=== PATIENT | female | born 1950 ===

== ENCOUNTER 2022-09-22 10:49 | Emergency (ER) | payer OTHER ==
[2022-09-22 11:21] VITALS: TEMP 98.6; BMI 28.5
[2022-09-22 12:34] LABS: BASO % 0.6 % (0-2.0); EOS % 2.7 % (0-4.5); HEMATOCRIT 33.6 % (32.4-45.2); HEMOGLOBIN 10.8 GM/dL (10.7-15.3); MCH 26.6 pg (25.7-33.7); MCHC 32.1 g/dl (32.0-36.0); MEAN CELL VOLUME 82.8 fl (80-96); MEAN PLT VOLUME 8.6 fl (7.5-11.1); MONO % 11.5 % (3.8-10.2); NEUT % 58.2 % (42.8-82.8); PLATELET COUNT 215 10^3/uL (134-434); RBC 4.06 M/mm3 (3.60-5.2); RDW 14.4 % (11.6-15.6); WHITE BLOOD COUNT 6.2 K/mm3 (4.0-10.0)
[2022-09-22 12:36] LABS: VENOUS BASE EXCESS 12.2 mmol/L (-2-2); VENOUS O2 SATURATION 99.2 % (70-80); VENOUS PCO2 43.1 mmHg (38-52); VENOUS PH 7.54 (7.310-7.410)
[2022-09-22 12:57] LABS: ALBUMIN 3.1 g/dl (3.4-5.0); BLOOD UREA NITROGEN 10.5 mg/dL (7-18); CALCIUM 10.1 mg/dL (8.5-10.1); MAGNESIUM 2.1 mg/dL (1.8-2.4)
[2022-09-22 13:00] LABS: CREATININE 0.4 mg/dL (0.55-1.3)
[2022-09-22 13:02] LABS: BILIRUBIN,TOTAL 0.3 mg/dL (0.2-1); TOT PROT 6.7 g/dl (6.4-8.2)
[2022-09-22 13:52] LABS: EPI CELLS 3 /uL (0-25.1); HYALINE CASTS 1 /uL (0-3.1); PH,URINE 7.5 (5.0-8.0); URINE APPEARANCE CLOUDY; URINE BACTERIA >9,000 /uL (0-1359); URINE BILIRUBIN NEGATIVE (NEGATIVE); URINE COLOR YELLOW; URINE GLUCOSE (UA) NEGATIVE (NEGATIVE); URINE KETONE TRACE (NEGATIVE); URINE LEUK ESTERASE 3+ (NEGATIVE); URINE NITRITE NEGATIVE (NEGATIVE); URINE PROTEIN TRACE (NEGATIVE); URINE RBC 23 /uL (0-23.9); URINE UROBILINOGEN 0.2 mg/dL (0.2-1.0); URINE WBC 1402 /uL (0-25.8)
[2022-09-22] MEDS ORDERED: CEFTRIAXONE 1,000 MG in DEXTROSE 5%-WATER - 50 ML IVPB ONE (14:30)
[2022-09-22] MEDS ORDERED: HYDROmorphone HCl 2 MG/ML VIAL IVPUSH ONE ×2 (14:31→19:04)
[2022-09-22] MEDS ORDERED: HYDROmorphone HCl 2 MG/ML VIAL ONE ×2 (14:33→19:29)
[2022-09-22] MEDS ORDERED: CEFTRIAXONE 1 GM/50 ML BAG ONE (15:22)
[2022-09-22 19:38] VITALS: BP 161/85; PULSE 120; RESP 22
== END 2022-09-22 19:45 | disposition home or self-care (01) ==
LOC: JER 10:49
PROC: 3E03329 Introduction of Other Anti-infective into Peripheral Vein, Percutaneous Approach (ICD-10-PCS; principal; 2022-09-22)
PROC: 3E033NZ Introduction of Analgesics, Hypnotics, Sedatives into Peripheral Vein, Percutaneous Approach (ICD-10-PCS; 2022-09-22)
PROC: 3E033GC Introduction of Other Therapeutic Substance into Peripheral Vein, Percutaneous Approach (ICD-10-PCS; 2022-09-22)
DX: N30.00 Acute cystitis without hematuria (principal); R51.9 Headache, unspecified; I10 Essential (primary) hypertension; Z20.822 Contact with and (suspected) exposure to COVID-19
CPT/HCPCS: 36415; 70450-TC; 71045-TC-FY; 74176-TC; 80053; 80164; 81003; 82803; 82962; 83605; 83690; 83735; 84484; 85025; 86850; 86900; 86901; 87086; 87186; 93005; 93010; 99285-25; C9803-CS; U0003; U0005

== ENCOUNTER 2022-10-01 10:57 | Inpatient (IN) | payer OTHER ==
[2022-10-01] MEDS ORDERED: ALBUTEROL SO4 0.083% IH SOL 2.5 MG/3 ML VIAL.NEB. NEB ONE ×6 (11:05→15:47)
[2022-10-01] MEDS ORDERED: methylPREDNISolone NA SUCC 125 MG/2 ML VIAL ONE ×2 (11:14→11:18)
[2022-10-01] MEDS ORDERED: methylPREDNISolone NA SUCC 125 MG/2 ML VIAL IVPUSH ONE (11:14)
[2022-10-01] MEDS ORDERED: MAGNESIUM SULF 50% (8.12 MEQ/2 ML-1 GM VIAL) IVPB ONE ×2 (11:14→15:09)
[2022-10-01] MEDS ORDERED: MAGNESIUM SULFATE IN WATER 2 GM/50 ML IVPB IVPB ONE ×3 (11:15→15:15)
[2022-10-01] MEDS ORDERED: LACTATED RINGERS SOLUTION 1000 ML INFUS.BAG IV ONE (11:19)
[2022-10-01 11:32] LABS: VENOUS BASE EXCESS 6.7 mmol/L (-2-2); VENOUS O2 SATURATION 57.9 % (70-80); VENOUS PH 7.221 (7.310-7.410)
[2022-10-01 11:33] LABS: HEMATOCRIT 33.5 % (32.4-45.2); HEMOGLOBIN 11.2 GM/dL (10.7-15.3); LYMPH % 11.3 % (8-40); MCH 27.4 pg (25.7-33.7); MCHC 33.6 g/dl (32.0-36.0); MEAN CELL VOLUME 81.5 fl (80-96); MEAN PLT VOLUME 8.8 fl (7.5-11.1); MONO % 7.5 % (3.8-10.2); NEUT % 80.4 % (42.8-82.8); PLATELET COUNT 353 10^3/uL (134-434); RBC 4.11 M/mm3 (3.60-5.2); WHITE BLOOD COUNT 8.4 K/mm3 (4.0-10.0)
[2022-10-01 11:34] LABS: BASO % 0.4 % (0-2.0); EOS % 0.4 % (0-4.5)
[2022-10-01 11:38] LABS: VENOUS PCO2 93.3 mmHg (38-52)
[2022-10-01 11:40] LABS: INR 1.12 (0.83-1.09)
[2022-10-01 11:43] LABS: ACTIVATED PTT 40.9 SECONDS (25.2-36.5)
[2022-10-01 11:54] LABS: ALBUMIN 3.3 g/dl (3.4-5.0); BLOOD UREA NITROGEN 9.4 mg/dL (7-18); CALCIUM 10.2 mg/dL (8.5-10.1)
[2022-10-01 11:58] LABS: CREATININE 0.3 mg/dL (0.55-1.3)
[2022-10-01 11:59] LABS: BILIRUBIN,TOTAL 0.3 mg/dL (0.2-1)
[2022-10-01 12:00] LABS: TOT PROT 7.7 g/dl (6.4-8.2)
[2022-10-01] MEDS ORDERED: ALBUTEROL SO4 0.083% IH SOL 2.5 MG/3 ML VIAL.NEB. NEB STA (12:16)
[2022-10-01] MEDS ORDERED: ALBUTEROL SO4 2.5/IPRATROPIUM 0.5 INH SOL 3 ML VIAL.NEB. NEB ONE ×2 (12:59→16:56)
[2022-10-01] MEDS ORDERED: HEPARIN NA (PORCINE) 5,000 UNITS/ML 1ML VIAL IVPUSH ONE (13:00)
[2022-10-01] MEDS ORDERED: HEPARIN NA (PORCINE) 5,000 UNITS/ML 1ML VIAL IVPUSH PRN ×2 (13:00)
[2022-10-01] MEDS ORDERED: HEPARIN - 25,000 UNIT in SODIUM CHLORIDE 495 ML IV SCH (13:30)
[2022-10-01 14:09] LABS: LACTIC ACID 3.9 mmol/L (0.4-2.0)
[2022-10-01] MEDS ORDERED: HEPARIN INFUSION - 25,000 UNITS/500 ML INFUS.BAG IVPB ONE (14:26)
[2022-10-01] MEDS ORDERED: HEPARIN NA (PORCINE) 5,000 UNITS/ML 1ML VIAL ONE (14:26)
[2022-10-01] MEDS ORDERED: MEROPENEM 1 GM in DEXTROSE 5%-WATER 100 ML IVPB ONE (15:04)
[2022-10-01] MEDS ORDERED: VANCOMYCIN/WATER 1,250 MG/250 ML BAG (RESTRICTED TO ID ONLY) IVPB ONE (15:05)
[2022-10-01] MEDS ORDERED: TERBUTALINE SULFATE 1 MG/1 ML VIAL SQ ONE (15:09)
[2022-10-01 15:28] LABS: VENOUS BASE EXCESS 4.8 mmol/L (-2-2); VENOUS O2 SATURATION 96.4 % (70-80); VENOUS PH 7.235 (7.310-7.410)
[2022-10-01] MEDS ORDERED: KETAMINE HCL 200 MG/20 ML VIAL IVPUSH ONE (15:29)
[2022-10-01] MEDS ORDERED: KETAMINE HCL 500 MG/10 ML VIAL ONE (15:32)
[2022-10-01] MEDS ORDERED: ROCURONIUM BROMIDE 50 MG/5 ML SYRINGE ONE (15:32)
[2022-10-01] MEDS ORDERED: DEXMEDETOMIDINE HCL 200 MCG/2 ML IVPB ONE ×2 (15:47→16:36)
[2022-10-01 15:59] LABS: VENOUS PCO2 83.8 mmHg (38-52)
[2022-10-01] MEDS ORDERED: DEXMEDETOMIDINE PREMIX 400 MCG/100 ML BAG IVPB SCH (16:15)
[2022-10-01] MEDS ORDERED: GLYCOPYRROLATE 1 MG/5 ML VIAL IM ONE (17:30)
[2022-10-01 18:39] LABS: VENOUS BASE EXCESS 3.8 mmol/L (-2-2); VENOUS O2 SATURATION 32.4 % (70-80); VENOUS PH 7.203 (7.310-7.410)
[2022-10-01 19:06] LABS: CALCIUM 10.1 mg/dL (8.5-10.1)
[2022-10-01 19:08] LABS: BLOOD UREA NITROGEN 11.5 mg/dL (7-18)
[2022-10-01 19:11] LABS: CREATININE 0.4 mg/dL (0.55-1.3)
[2022-10-01 20:02] LABS: EPI CELLS 17 /uL (0-25.1); HYALINE CASTS 3 /uL (0-3.1); URINE APPEARANCE Clear; URINE BACTERIA 3 /uL (0-1359); URINE BILIRUBIN Negative (NEGATIVE); URINE COLOR Yellow; URINE GLUCOSE (UA) Negative (NEGATIVE); URINE KETONE 15 mg/dl (NEGATIVE); URINE LEUK ESTERASE Negative (NEGATIVE); URINE NITRITE Negative (NEGATIVE); URINE PROTEIN 30 (NEGATIVE); URINE UROBILINOGEN 0.2 mg/dL (0.2-1.0)
[2022-10-01 20:13] LABS: URINE RBC 98.6 /uL (0-23.9); URINE WBC 85.8 /uL (0-25.8)
[2022-10-01] MEDS: methylPREDNISolone NA SUCC 40 MG/1 ML VIAL IVPUSH SCH (20:14)
[2022-10-01] MEDS ORDERED: LIDOCAINE HCL 1%, 10 MG/ML (50 mL VIAL) SQ ONE (21:19)
[2022-10-01] MEDS: CHLORHEXIDINE GLUCONATE 4% CLEANSER FOR DECOLONIZATION TP SCH (21:35)
[2022-10-01] MEDS ORDERED: PROPOFOL 200 MG/20 ML VIAL IVPUSH ONE (21:49)
[2022-10-01 22:29] LABS: ARTERIAL BLD GAS O2 SATURATION 97.7 % (95-98); ARTERIAL BLOOD GAS BASE EXCESS 9.3 mmol/L (-2-2); ARTERIAL BLOOD GAS PO2 92.7 mmHg (80-100)
[2022-10-01] MEDS: MUPIROCIN 2% TOPICAL OINTMENT FOR DECOLONIZATION NS SCH (22:29)
[2022-10-01] MEDS: PROPOFOL 1,000,000 MCG/100 ML VIAL IVPB SCH (22:29)
[2022-10-02] MEDS ORDERED: NITROGLYCERIN 50 MG/10 ML VIAL IVPB SCH (02:00)
[2022-10-02 04:44] LABS: BASO % 0.1 % (0-2.0); HEMATOCRIT 29.2 % (32.4-45.2); HEMOGLOBIN 9.9 GM/dL (10.7-15.3); LYMPH % 11.2 % (8-40); MCH 27.3 pg (25.7-33.7); MCHC 33.9 g/dl (32.0-36.0); MEAN CELL VOLUME 80.5 fl (80-96); MEAN PLT VOLUME 7.8 fl (7.5-11.1); MONO % 13.8 % (3.8-10.2); NEUT % 74.9 % (42.8-82.8); PLATELET COUNT 288 10^3/uL (134-434); RBC 3.63 M/mm3 (3.60-5.2); RDW 13.7 % (11.6-15.6); WHITE BLOOD COUNT 8.4 K/mm3 (4.0-10.0)
[2022-10-02] MEDS: methylPREDNISolone NA SUCC 40 MG/1 ML VIAL IVPUSH SCH ×3 (04:54→17:13)
[2022-10-02 05:07] LABS: BLOOD UREA NITROGEN 12.4 mg/dL (7-18); MAGNESIUM 2.1 mg/dL (1.8-2.4)
[2022-10-02 05:10] LABS: CREATININE 0.3 mg/dL (0.55-1.3); PHOSPHOROUS 2.5 mg/dL (2.5-4.9)
[2022-10-02] MEDS ORDERED: CLOPIDOGREL BISULFATE 75 MG TABLET (FP) PO STA (05:13)
[2022-10-02 05:14] LABS: N-TERMINAL BNP 4053.2 pg/ml (5-125)
[2022-10-02] MEDS: CEFTRIAXONE 1 GM in DEXTROSE 5%-WATER - 50 ML IVPB SCH (09:03)
[2022-10-02] MEDS: MUPIROCIN 2% TOPICAL OINTMENT FOR DECOLONIZATION NS SCH ×2 (09:05→21:35)
[2022-10-02] MEDS: ASPIRIN 81 MG CHEWABLE TABLETS PO SCH (09:05)
[2022-10-02] MEDS: AZITHROMYCIN IVPB 500 MG/250 ML BAG IVPB SCH (09:05)
[2022-10-02] MEDS ORDERED: CLOPIDOGREL BISULFATE 75 MG TABLET (FP) PO SCH (10:00)
[2022-10-02] MEDS ORDERED: PANTOPRAZOLE SODIUM 40 MG VIAL IVPUSH SCH (10:00)
[2022-10-02] MEDS ORDERED: hydrALAZINE HCL 20 MG/ML VIAL IVPUSH PRN (10:08)
[2022-10-02] MEDS ORDERED: ALBUTEROL SO4 0.083% IH SOL 2.5 MG/3 ML VIAL.NEB. NEB PRN (10:22)
[2022-10-02] MEDS ORDERED: ALBUTEROL SO4 2.5/IPRATROPIUM 0.5 INH SOL 3 ML VIAL.NEB. NEB PRN (10:22)
[2022-10-02] MEDS: CARVEDILOL 6.25 MG TABLET (FP) PO SCH ×2 (10:37→21:35)
[2022-10-02] MEDS: LOSARTAN POTASSIUM 50 MG TABLET PO SCH (10:37)
[2022-10-02] MEDS: INSULIN SLIDING SCALE (NOVOLOG) 1 VIAL SQ SCH ×3 (10:44→21:36)
[2022-10-02] MEDS ORDERED: ALBUTEROL SO4 0.042% IH SOL 1.25 MG/3 ML VIAL.NEB NEB PRN (10:58)
[2022-10-02] MEDS ORDERED: FUROSEMIDE 40 MG/4 ML INJECTABLE VIAL IVPUSH ONE (11:15)
[2022-10-02] MEDS: ALBUTEROL SO4 2.5/IPRATROPIUM 0.5 INH SOL 3 ML VIAL.NEB. NEB SCH ×3 (11:55→22:07)
[2022-10-02 17:19] LABS: HEMATOCRIT 30.9 % (32.4-45.2); HEMOGLOBIN 10.2 GM/dL (10.7-15.3); MCH 26.6 pg (25.7-33.7); MEAN CELL VOLUME 80.8 fl (80-96); MEAN PLT VOLUME 8.1 fl (7.5-11.1); PLATELET COUNT 313 10^3/uL (134-434); RBC 3.83 M/mm3 (3.60-5.2); WHITE BLOOD COUNT 11.2 K/mm3 (4.0-10.0)
[2022-10-02] MEDS: DEXMEDETOMIDINE PREMIX 400 MCG/100 ML BAG IVPB SCH (20:00)
[2022-10-02] MEDS: PROPOFOL 1,000,000 MCG/100 ML VIAL IVPB SCH (21:35)
[2022-10-02] MEDS: CHLORHEXIDINE GLUCONATE 4% CLEANSER FOR DECOLONIZATION TP SCH (21:36)
[2022-10-02] MEDS: ATORVASTATIN CA 40 MG TABLET (FP) PO SCH (21:36)
[2022-10-02] MEDS: PANTOPRAZOLE SODIUM 40 MG VIAL IVPUSH SCH (21:36)
[2022-10-03] MEDS: DEXMEDETOMIDINE PREMIX 400 MCG/100 ML BAG IVPB SCH ×3 (01:05→22:49)
[2022-10-03] MEDS: methylPREDNISolone NA SUCC 40 MG/1 ML VIAL IVPUSH SCH ×3 (01:27→18:21)
[2022-10-03] MEDS: INSULIN SLIDING SCALE (NOVOLOG) 1 VIAL SQ SCH ×4 (04:16→22:34)
[2022-10-03] MEDS: PROPOFOL 1,000,000 MCG/100 ML VIAL IVPB SCH ×2 (05:21→22:33)
[2022-10-03 06:09] LABS: ARTERIAL BLD GAS O2 SATURATION 98.8 % (95-98); ARTERIAL BLOOD GAS BASE EXCESS 10.6 mmol/L (-2-2); ARTERIAL BLOOD GAS PO2 136.3 mmHg (80-100); ARTERIAL BLOOD GAS pH 7.455 (7.350-7.450)
[2022-10-03 06:14] LABS: VENT MODE A/C; VENT RATE 14
[2022-10-03] MEDS: ALBUTEROL SO4 2.5/IPRATROPIUM 0.5 INH SOL 3 ML VIAL.NEB. NEB SCH ×4 (08:05→20:40)
[2022-10-03 08:42] LABS: HEMATOCRIT 29.2 % (32.4-45.2); HEMOGLOBIN 9.8 GM/dL (10.7-15.3); MCH 27.2 pg (25.7-33.7); MCHC 33.6 g/dl (32.0-36.0); MEAN CELL VOLUME 81.1 fl (80-96); MEAN PLT VOLUME 8.8 fl (7.5-11.1); PLATELET COUNT 329 10^3/uL (134-434); WHITE BLOOD COUNT 11.1 K/mm3 (4.0-10.0)
[2022-10-03 08:52] LABS: CALCIUM 9.6 mg/dL (8.5-10.1)
[2022-10-03 08:53] LABS: BLOOD UREA NITROGEN 19.7 mg/dL (7-18); MAGNESIUM 2.1 mg/dL (1.8-2.4)
[2022-10-03 08:56] LABS: CREATININE 0.3 mg/dL (0.55-1.3); PHOSPHOROUS 4.1 mg/dL (2.5-4.9)
[2022-10-03] MEDS: PANTOPRAZOLE SODIUM 40 MG VIAL IVPUSH SCH ×2 (09:00→22:34)
[2022-10-03] MEDS: CLOPIDOGREL BISULFATE 75 MG TABLET (FP) PO SCH (09:01)
[2022-10-03] MEDS: CEFTRIAXONE 1 GM in DEXTROSE 5%-WATER - 50 ML IVPB SCH (09:01)
[2022-10-03] MEDS: ENOXAPARIN NA (PORCINE) 40 MG/0.4 ML DISP.SYRIN SQ SCH (09:01)
[2022-10-03] MEDS: ASPIRIN 81 MG CHEWABLE TABLETS PO SCH (09:01)
[2022-10-03] MEDS: MUPIROCIN 2% TOPICAL OINTMENT FOR DECOLONIZATION NS SCH ×2 (09:01→22:32)
[2022-10-03] MEDS: LOSARTAN POTASSIUM 50 MG TABLET PO SCH (09:02)
[2022-10-03] MEDS: CARVEDILOL 6.25 MG TABLET (FP) PO SCH ×2 (09:02→22:35)
[2022-10-03] MEDS: AZITHROMYCIN IVPB 500 MG/250 ML BAG IVPB SCH (09:02)
[2022-10-03] MEDS: CEFEPIME 1 GM in DEXTROSE 5%-WATER 100 ML IVPB SCH (18:21)
[2022-10-03] MEDS: ATORVASTATIN CA 40 MG TABLET (FP) PO SCH (22:33)
[2022-10-03] MEDS: CHLORHEXIDINE GLUCONATE 4% CLEANSER FOR DECOLONIZATION TP SCH (22:33)
[2022-10-04] MEDS: methylPREDNISolone NA SUCC 40 MG/1 ML VIAL IVPUSH SCH ×3 (01:23→17:05)
[2022-10-04] MEDS: CEFEPIME 1 GM in DEXTROSE 5%-WATER 100 ML IVPB SCH ×3 (01:23→17:05)
[2022-10-04] MEDS: DEXMEDETOMIDINE PREMIX 400 MCG/100 ML BAG IVPB SCH (02:49)
[2022-10-04] MEDS: INSULIN SLIDING SCALE (NOVOLOG) 1 VIAL SQ SCH ×4 (04:12→21:37)
[2022-10-04] MEDS: PROPOFOL 1,000,000 MCG/100 ML VIAL IVPB SCH (05:55)
[2022-10-04] MEDS: ALBUTEROL SO4 2.5/IPRATROPIUM 0.5 INH SOL 3 ML VIAL.NEB. NEB SCH ×4 (07:15→20:42)
[2022-10-04 07:45] LABS: HEMATOCRIT 26.9 % (32.4-45.2); HEMOGLOBIN 8.8 GM/dL (10.7-15.3); MCH 26.6 pg (25.7-33.7); MCHC 32.7 g/dl (32.0-36.0); MEAN CELL VOLUME 81.5 fl (80-96); MEAN PLT VOLUME 8.4 fl (7.5-11.1); PLATELET COUNT 299 10^3/uL (134-434); RDW 14.2 % (11.6-15.6); WHITE BLOOD COUNT 11.3 K/mm3 (4.0-10.0)
[2022-10-04] MEDS: ASPIRIN 81 MG CHEWABLE TABLETS PO SCH (09:13)
[2022-10-04] MEDS: PANTOPRAZOLE SODIUM 40 MG VIAL IVPUSH SCH ×2 (09:13→21:34)
[2022-10-04] MEDS: LOSARTAN POTASSIUM 50 MG TABLET PO SCH (09:14)
[2022-10-04] MEDS: CLOPIDOGREL BISULFATE 75 MG TABLET (FP) PO SCH (09:14)
[2022-10-04] MEDS: ENOXAPARIN NA (PORCINE) 40 MG/0.4 ML DISP.SYRIN SQ SCH (09:18)
[2022-10-04] MEDS: AZITHROMYCIN IVPB 500 MG/250 ML BAG IVPB SCH (09:18)
[2022-10-04] MEDS: MUPIROCIN 2% TOPICAL OINTMENT FOR DECOLONIZATION NS SCH ×2 (09:18→21:38)
[2022-10-04] MEDS: CARVEDILOL 6.25 MG TABLET (FP) PO SCH ×2 (09:18→21:34)
[2022-10-04 10:19] LABS: BLOOD UREA NITROGEN 24.1 mg/dL (7-18); CALCIUM 8.7 mg/dL (8.5-10.1); MAGNESIUM 2.2 mg/dL (1.8-2.4)
[2022-10-04 10:23] LABS: CREATININE 0.3 mg/dL (0.55-1.3); PHOSPHOROUS 2.7 mg/dL (2.5-4.9)
[2022-10-04 10:25] LABS: BILIRUBIN,TOTAL 0.2 mg/dL (0.2-1)
[2022-10-04 10:29] LABS: ALBUMIN 2.6 g/dl (3.4-5.0)
[2022-10-04] MEDS: ATORVASTATIN CA 40 MG TABLET (FP) PO SCH (21:33)
[2022-10-04] MEDS: CHLORHEXIDINE GLUCONATE 4% CLEANSER FOR DECOLONIZATION TP SCH (21:34)
[2022-10-05] MEDS: methylPREDNISolone NA SUCC 40 MG/1 ML VIAL IVPUSH SCH ×3 (01:10→17:11)
[2022-10-05] MEDS: CEFEPIME 1 GM in DEXTROSE 5%-WATER 100 ML IVPB SCH ×3 (01:10→17:11)
[2022-10-05] MEDS: hydrALAZINE HCL 20 MG/ML VIAL IVPUSH PRN ×2 (01:38→22:45)
[2022-10-05] MEDS: PROPOFOL 1,000,000 MCG/100 ML VIAL IVPB SCH (02:39)
[2022-10-05] MEDS: DEXMEDETOMIDINE PREMIX 400 MCG/100 ML BAG IVPB SCH (02:39)
[2022-10-05] MEDS: INSULIN SLIDING SCALE (NOVOLOG) 1 VIAL SQ SCH ×4 (04:42→21:42)
[2022-10-05 07:12] LABS: HEMATOCRIT 25.9 % (32.4-45.2); HEMOGLOBIN 8.5 GM/dL (10.7-15.3); MCH 26.7 pg (25.7-33.7); MCHC 32.7 g/dl (32.0-36.0); MEAN CELL VOLUME 81.6 fl (80-96); MEAN PLT VOLUME 8.2 fl (7.5-11.1); PLATELET COUNT 302 10^3/uL (134-434); RBC 3.18 M/mm3 (3.60-5.2); WHITE BLOOD COUNT 13.5 K/mm3 (4.0-10.0)
[2022-10-05 07:39] LABS: CALCIUM 8.9 mg/dL (8.5-10.1)
[2022-10-05 07:40] LABS: ALBUMIN 2.5 g/dl (3.4-5.0); BLOOD UREA NITROGEN 20.2 mg/dL (7-18); MAGNESIUM 2.1 mg/dL (1.8-2.4)
[2022-10-05 07:43] LABS: CREATININE 0.3 mg/dL (0.55-1.3); PHOSPHOROUS 2.2 mg/dL (2.5-4.9)
[2022-10-05 07:44] LABS: BILIRUBIN,TOTAL 0.2 mg/dL (0.2-1); TOT PROT 5.9 g/dl (6.4-8.2)
[2022-10-05] MEDS: ALBUTEROL SO4 2.5/IPRATROPIUM 0.5 INH SOL 3 ML VIAL.NEB. NEB SCH ×4 (08:02→20:37)
[2022-10-05] MEDS: CLOPIDOGREL BISULFATE 75 MG TABLET (FP) PO SCH (09:01)
[2022-10-05] MEDS: ENOXAPARIN NA (PORCINE) 40 MG/0.4 ML DISP.SYRIN SQ SCH (09:01)
[2022-10-05] MEDS: ASPIRIN 81 MG CHEWABLE TABLETS PO SCH (09:01)
[2022-10-05] MEDS: MUPIROCIN 2% TOPICAL OINTMENT FOR DECOLONIZATION NS SCH ×2 (09:02→21:19)
[2022-10-05] MEDS: LOSARTAN POTASSIUM 50 MG TABLET PO SCH (09:02)
[2022-10-05] MEDS: CARVEDILOL 6.25 MG TABLET (FP) PO SCH ×2 (09:02→21:19)
[2022-10-05] MEDS: PANTOPRAZOLE SODIUM 40 MG VIAL IVPUSH SCH (09:03)
[2022-10-05] MEDS ORDERED: GLYCOPYRROLATE 1 MG/5 ML VIAL IM ONE (12:30)
[2022-10-05] MEDS: BUDESONIDE/FORMETEROL FUMARATE 160/4.5 mcg INHALER IH SCH ×2 (12:42→21:20)
[2022-10-05] MEDS ORDERED: SODIUM PHOSPHATE - 15 MM in DEXTROSE 5%-WATER - 250 ML IVPB ONE (17:31)
[2022-10-05] MEDS ORDERED: ACETAMINOPHEN 1000 MG/100 ML BAG IVPB ONE (18:34)
[2022-10-05] MEDS ORDERED: HYDROmorphone HCl 2 MG/ML VIAL IVPUSH ONE (18:35)
[2022-10-05] MEDS: ACETYLCYSTEINE 20% 200MG/ML 4 ML VIAL *FOR ORAL / INH USE ONLY NEB SCH (20:38)
[2022-10-05] MEDS ORDERED: DIVALPROEX SODIUM 125 MG SPRINKLE CAPS PO SCH (21:15)
[2022-10-05] MEDS: ATORVASTATIN CA 40 MG TABLET (FP) PO SCH (21:19)
[2022-10-05] MEDS: GABAPENTIN 100 MG CAPSULE PO SCH (21:19)
[2022-10-05] MEDS: CHLORHEXIDINE GLUCONATE 4% CLEANSER FOR DECOLONIZATION TP SCH (21:20)
[2022-10-05] MEDS ORDERED: OLANZapine 2.5 MG TABLET PO SCH (22:00)
[2022-10-05] MEDS ORDERED: DIVALPROEX SODIUM 500 MG TABLET E.C. PO SCH (22:00)
[2022-10-06] MEDS: CEFEPIME 1 GM in DEXTROSE 5%-WATER 100 ML IVPB SCH ×2 (01:15→10:04)
[2022-10-06] MEDS: methylPREDNISolone NA SUCC 40 MG/1 ML VIAL IVPUSH SCH ×2 (01:15→10:05)
[2022-10-06] MEDS: INSULIN SLIDING SCALE (NOVOLOG) 1 VIAL SQ SCH ×4 (05:48→23:03)
[2022-10-06] MEDS: GABAPENTIN 100 MG CAPSULE PO SCH (06:14)
[2022-10-06] MEDS: hydrALAZINE HCL 20 MG/ML VIAL IVPUSH PRN (06:39)
[2022-10-06] MEDS ORDERED: METOPROLOL TARTRATE 5 MG/5 ML VIAL IVPUSH ONE (07:01)
[2022-10-06 08:01] LABS: HEMATOCRIT 29.3 % (32.4-45.2); HEMOGLOBIN 9.5 GM/dL (10.7-15.3); MCH 26.4 pg (25.7-33.7); MCHC 32.4 g/dl (32.0-36.0); MEAN CELL VOLUME 81.7 fl (80-96); MEAN PLT VOLUME 8.3 fl (7.5-11.1); PLATELET COUNT 437 10^3/uL (134-434); RBC 3.59 M/mm3 (3.60-5.2); RDW 14.2 % (11.6-15.6); WHITE BLOOD COUNT 16.6 K/mm3 (4.0-10.0)
[2022-10-06] MEDS: ALBUTEROL SO4 2.5/IPRATROPIUM 0.5 INH SOL 3 ML VIAL.NEB. NEB SCH ×3 (08:22→19:41)
[2022-10-06] MEDS: ACETYLCYSTEINE 20% 200MG/ML 4 ML VIAL *FOR ORAL / INH USE ONLY NEB SCH ×4 (08:23→19:41)
[2022-10-06 08:42] LABS: ALBUMIN 2.8 g/dl (3.4-5.0); CALCIUM 9.6 mg/dL (8.5-10.1)
[2022-10-06 08:43] LABS: BLOOD UREA NITROGEN 22.6 mg/dL (7-18)
[2022-10-06 08:46] LABS: CREATININE 0.3 mg/dL (0.55-1.3); PHOSPHOROUS 3.1 mg/dL (2.5-4.9)
[2022-10-06 08:47] LABS: BILIRUBIN,TOTAL 0.3 mg/dL (0.2-1); TOT PROT 6.4 g/dl (6.4-8.2)
[2022-10-06] MEDS ORDERED: CARVEDILOL 12.5 MG TABLET (FP) PO SCH (09:27)
[2022-10-06] MEDS ORDERED: VALPROATE SODIUM 500 MG/5 ML VIAL IVPB SCH (09:30)
[2022-10-06] MEDS ORDERED: ASPIRIN 81 MG CHEWABLE TABLETS PO SCH (10:00)
[2022-10-06] MEDS ORDERED: DIVALPROEX SODIUM 500 MG TABLET E.C. PO SCH (10:00)
[2022-10-06] MEDS ORDERED: PANTOPRAZOLE SODIUM 40 MG VIAL IVPUSH SCH (10:00)
[2022-10-06] MEDS: ENOXAPARIN NA (PORCINE) 40 MG/0.4 ML DISP.SYRIN SQ SCH (10:05)
[2022-10-06] MEDS: LOSARTAN POTASSIUM 50 MG TABLET PO SCH (10:13)
[2022-10-06] MEDS: GABAPENTIN 300 MG CAPSULE PO SCH ×2 (10:13→16:58)
[2022-10-06] MEDS: CLOPIDOGREL BISULFATE 75 MG TABLET (FP) PO SCH (10:13)
[2022-10-06] MEDS: MUPIROCIN 2% TOPICAL OINTMENT FOR DECOLONIZATION NS SCH (10:15)
[2022-10-06] MEDS: BUDESONIDE/FORMETEROL FUMARATE 160/4.5 mcg INHALER IH SCH ×2 (10:15→22:57)
[2022-10-06] MEDS ORDERED: HYDROmorphone HCL 2 MG TABLET PO SCH (11:15)
[2022-10-06] MEDS ORDERED: FUROSEMIDE 40 MG/4 ML INJECTABLE VIAL IVPUSH ONE (11:17)
[2022-10-06] MEDS ORDERED: SCOPOLAMINE HYDROBROMIDE 1 PATCH PATCH.TD72 TD SCH (11:30)
[2022-10-06] MEDS: VALPROATE SODIUM INJECTION 250 MG in SODIUM CHLORIDE 100 ML IVPB SCH ×3 (12:19→21:15)
[2022-10-06] MEDS ORDERED: hydrALAZINE HCL 20 MG/ML VIAL IVPUSH PRN (19:03)
[2022-10-06] MEDS: HYDROmorphone HCL 2 MG TABLET PO SCH (21:45)
[2022-10-06] MEDS: CARVEDILOL 12.5 MG TABLET (FP) PO SCH (21:46)
[2022-10-06] MEDS: OLANZapine 2.5 MG TABLET PO SCH (21:46)
[2022-10-06] MEDS: ATORVASTATIN CA 40 MG TABLET (FP) PO SCH (21:46)
[2022-10-07] MEDS: GABAPENTIN 300 MG CAPSULE PO SCH ×3 (00:05→15:25)
[2022-10-07] MEDS: CEFEPIME 1 GM in DEXTROSE 5%-WATER 100 ML IVPB SCH ×4 (01:36→17:09)
[2022-10-07] MEDS: VALPROATE SODIUM INJECTION 250 MG in SODIUM CHLORIDE 100 ML IVPB SCH ×4 (02:37→20:56)
[2022-10-07] MEDS: INSULIN SLIDING SCALE (NOVOLOG) 1 VIAL SQ SCH ×4 (05:01→21:52)
[2022-10-07] MEDS: ACETYLCYSTEINE 20% 200MG/ML 4 ML VIAL *FOR ORAL / INH USE ONLY NEB SCH ×5 (07:39→20:40)
[2022-10-07] MEDS: ALBUTEROL SO4 2.5/IPRATROPIUM 0.5 INH SOL 3 ML VIAL.NEB. NEB SCH (07:40)
[2022-10-07] MEDS: ALBUTEROL SO4 0.042% IH SOL 1.25 MG/3 ML VIAL.NEB NEB PRN ×3 (07:40→20:40)
[2022-10-07] MEDS: AMINO ACIDS/PROTEIN HYDROLYS 30 ML LIQUID.PKT PO SCH (08:15)
[2022-10-07] MEDS: CARVEDILOL 12.5 MG TABLET (FP) PO SCH ×2 (09:43→21:43)
[2022-10-07] MEDS: PANTOPRAZOLE SODIUM 40 MG VIAL IVPUSH SCH (09:44)
[2022-10-07] MEDS: predniSONE 20 MG TABLET (UD) PO SCH (09:44)
[2022-10-07] MEDS: ENOXAPARIN NA (PORCINE) 40 MG/0.4 ML DISP.SYRIN SQ SCH (09:44)
[2022-10-07] MEDS: BUDESONIDE/FORMETEROL FUMARATE 160/4.5 mcg INHALER IH SCH ×2 (09:44→21:45)
[2022-10-07] MEDS: ASPIRIN 81 MG CHEWABLE TABLETS PO SCH (09:45)
[2022-10-07] MEDS: HYDROmorphone HCL 2 MG TABLET PO SCH ×2 (09:45→21:44)
[2022-10-07] MEDS: FUROSEMIDE 40 MG/4 ML INJECTABLE VIAL IVPUSH SCH (09:47)
[2022-10-07] MEDS: LOSARTAN POTASSIUM 50 MG TABLET PO SCH (09:47)
[2022-10-07] MEDS: CLOPIDOGREL BISULFATE 75 MG TABLET (FP) PO SCH (09:47)
[2022-10-07] MEDS ORDERED: methylPREDNISolone NA SUCC 40 MG/1 ML VIAL IVPUSH SCH (10:00)
[2022-10-07 11:32] LABS: HEMATOCRIT 28.8 % (32.4-45.2); HEMOGLOBIN 9.3 GM/dL (10.7-15.3); MCH 26.4 pg (25.7-33.7); MCHC 32.1 g/dl (32.0-36.0); MEAN CELL VOLUME 82.2 fl (80-96); MEAN PLT VOLUME 8.5 fl (7.5-11.1); PLATELET COUNT 376 10^3/uL (134-434); RBC 3.51 M/mm3 (3.60-5.2); RDW 14.2 % (11.6-15.6); WHITE BLOOD COUNT 13.1 K/mm3 (4.0-10.0)
[2022-10-07 11:58] LABS: CALCIUM 9.8 mg/dL (8.5-10.1)
[2022-10-07 11:59] LABS: ALBUMIN 2.8 g/dl (3.4-5.0); BLOOD UREA NITROGEN 21.5 mg/dL (7-18); MAGNESIUM 1.9 mg/dL (1.8-2.4)
[2022-10-07 12:02] LABS: CREATININE 0.3 mg/dL (0.55-1.3); PHOSPHOROUS 3.8 mg/dL (2.5-4.9)
[2022-10-07 12:04] LABS: TOT PROT 6.2 g/dl (6.4-8.2)
[2022-10-07 12:13] LABS: BILIRUBIN,TOTAL 0.3 mg/dL (0.2-1)
[2022-10-07 12:52] LABS: N-TERMINAL BNP 758.8 pg/ml (5-125)
[2022-10-07] MEDS ORDERED: ALBUTEROL SO4 2.5/IPRATROPIUM 0.5 INH SOL 3 ML VIAL.NEB. NEB SCH (14:00)
[2022-10-07] MEDS: ATORVASTATIN CA 40 MG TABLET (FP) PO SCH (21:43)
[2022-10-07] MEDS: OLANZapine 2.5 MG TABLET PO SCH (21:43)
[2022-10-08] MEDS: GABAPENTIN 300 MG CAPSULE PO SCH ×3 (00:20→15:25)
[2022-10-08] MEDS: CEFEPIME 1 GM in DEXTROSE 5%-WATER 100 ML IVPB SCH ×2 (02:08→10:36)
[2022-10-08] MEDS: VALPROATE SODIUM INJECTION 250 MG in SODIUM CHLORIDE 100 ML IVPB SCH ×4 (03:30→23:25)
[2022-10-08] MEDS: INSULIN SLIDING SCALE (NOVOLOG) 1 VIAL SQ SCH ×4 (04:48→23:33)
[2022-10-08 07:30] LABS: HEMOGLOBIN 9.2 GM/dL (10.7-15.3); MCHC 32.9 g/dl (32.0-36.0); MEAN CELL VOLUME 82.1 fl (80-96); MEAN PLT VOLUME 8.4 fl (7.5-11.1); PLATELET COUNT 355 10^3/uL (134-434); RBC 3.41 M/mm3 (3.60-5.2); WHITE BLOOD COUNT 15.9 K/mm3 (4.0-10.0)
[2022-10-08] MEDS: ALBUTEROL SO4 0.042% IH SOL 1.25 MG/3 ML VIAL.NEB NEB PRN ×3 (07:41→15:05)
[2022-10-08] MEDS: ACETYLCYSTEINE 20% 200MG/ML 4 ML VIAL *FOR ORAL / INH USE ONLY NEB SCH ×4 (07:43→20:05)
[2022-10-08 07:51] LABS: CALCIUM 9.7 mg/dL (8.5-10.1)
[2022-10-08 07:52] LABS: ALBUMIN 2.8 g/dl (3.4-5.0); BLOOD UREA NITROGEN 22.7 mg/dL (7-18); MAGNESIUM 1.9 mg/dL (1.8-2.4)
[2022-10-08 07:53] LABS: BILIRUBIN,TOTAL 0.3 mg/dL (0.2-1); CREATININE 0.2 mg/dL (0.55-1.3); TOT PROT 6.1 g/dl (6.4-8.2)
[2022-10-08] MEDS: ENOXAPARIN NA (PORCINE) 40 MG/0.4 ML DISP.SYRIN SQ SCH (10:36)
[2022-10-08] MEDS: PANTOPRAZOLE SODIUM 40 MG VIAL IVPUSH SCH (10:36)
[2022-10-08] MEDS: AMINO ACIDS/PROTEIN HYDROLYS 30 ML LIQUID.PKT PO SCH (10:36)
[2022-10-08] MEDS: CLOPIDOGREL BISULFATE 75 MG TABLET (FP) PO SCH (10:37)
[2022-10-08] MEDS: ASPIRIN 81 MG CHEWABLE TABLETS PO SCH (10:37)
[2022-10-08] MEDS: CARVEDILOL 12.5 MG TABLET (FP) PO SCH ×2 (10:37→23:26)
[2022-10-08] MEDS: HYDROmorphone HCL 2 MG TABLET PO SCH ×2 (10:37→23:26)
[2022-10-08] MEDS: predniSONE 20 MG TABLET (UD) PO SCH (10:37)
[2022-10-08] MEDS: LOSARTAN POTASSIUM 50 MG TABLET PO SCH (10:37)
[2022-10-08] MEDS: BUDESONIDE/FORMETEROL FUMARATE 160/4.5 mcg INHALER IH SCH ×2 (10:41→23:44)
[2022-10-08] MEDS: FUROSEMIDE 40 MG/4 ML INJECTABLE VIAL IVPUSH SCH (10:42)
[2022-10-08] MEDS ORDERED: BACLOFEN 10 MG TABLET (FP) PO ONE (11:46)
[2022-10-08] MEDS ORDERED: PANTOPRAZOLE 40 MG TABLET PO SCH (13:01)
[2022-10-08] MEDS: FUROSEMIDE 40 MG TABLET (FP) PO SCH (16:10)
[2022-10-08] MEDS ORDERED: levETIRAcetam 500 MG/5 ML INJECTION VIAL IVPB ONE (21:50)
[2022-10-08] MEDS ORDERED: LACTATED RINGERS SOLUTION 1,000 ML/1,000 ML INFUS.BAG IV STA (21:52)
[2022-10-08] MEDS ORDERED: LACTATED RINGERS SOLUTION 1,000 ML/1,000 ML INFUS.BAG IV SCH (22:00)
[2022-10-08 22:04] LABS: ARTERIAL BLD GAS O2 SATURATION 95.4 % (95-98); ARTERIAL BLOOD GAS BASE EXCESS 15.5 mmol/L (-2-2); ARTERIAL BLOOD GAS PO2 82.6 mmHg (80-100); ARTERIAL BLOOD GAS pH 7.377 (7.350-7.450)
[2022-10-08] MEDS: ATORVASTATIN CA 40 MG TABLET (FP) PO SCH (23:26)
[2022-10-08] MEDS: OLANZapine 2.5 MG TABLET PO SCH (23:26)
[2022-10-09] MEDS: GABAPENTIN 300 MG CAPSULE PO SCH ×3 (00:09→16:01)
[2022-10-09] MEDS: VALPROATE SODIUM 500 MG/5 ML VIAL IVPB SCH ×2 (00:09→06:08)
[2022-10-09 04:43] LABS: PH,URINE 5.5 (5.0-8.0); URINE APPEARANCE CLEAR; URINE BILIRUBIN NEGATIVE (NEGATIVE); URINE COLOR YELLOW; URINE GLUCOSE (UA) NEGATIVE (NEGATIVE); URINE KETONE NEGATIVE (NEGATIVE); URINE LEUK ESTERASE NEGATIVE (NEGATIVE); URINE NITRITE NEGATIVE (NEGATIVE); URINE PROTEIN NEGATIVE (NEGATIVE); URINE UROBILINOGEN 0.2 mg/dL (0.2-1.0)
[2022-10-09] MEDS: INSULIN SLIDING SCALE (NOVOLOG) 1 VIAL SQ SCH ×4 (04:59→21:37)
[2022-10-09 05:04] LABS: ALBUMIN 2.5 g/dl (3.4-5.0); CALCIUM 9.4 mg/dL (8.5-10.1); MAGNESIUM 1.7 mg/dL (1.8-2.4)
[2022-10-09 05:05] LABS: INR 1.28 (0.83-1.09); PROTHROMBIN TIME (PATIENT) 14.8 SEC (9.7-13.0)
[2022-10-09 05:07] LABS: ACTIVATED PTT 26.2 SECONDS (25.2-36.5); CREATININE 0.2 mg/dL (0.55-1.3)
[2022-10-09 05:09] LABS: BILIRUBIN,TOTAL 0.2 mg/dL (0.2-1); TOT PROT 5.5 g/dl (6.4-8.2)
[2022-10-09 05:22] LABS: HEMATOCRIT 23.6 % (32.4-45.2); HEMOGLOBIN 7.7 GM/dL (10.7-15.3); MCH 27.1 pg (25.7-33.7); MCHC 32.6 g/dl (32.0-36.0); MEAN PLT VOLUME 8.4 fl (7.5-11.1); PLATELET COUNT 332 10^3/uL (134-434); RBC 2.84 M/mm3 (3.60-5.2); RDW 13.9 % (11.6-15.6)
[2022-10-09] MEDS ORDERED: ACETAMINOPHEN 500 MG TABLET (FP) PO ONE ×2 (06:01→06:59)
[2022-10-09] MEDS ORDERED: IBUPROFEN 600 MG TABLET (FP) PO ONE (06:02)
[2022-10-09] MEDS: ACETYLCYSTEINE 20% 200MG/ML 4 ML VIAL *FOR ORAL / INH USE ONLY NEB SCH ×4 (08:03→20:27)
[2022-10-09] MEDS ORDERED: CEFTRIAXONE 2 GM in DEXTROSE 5%-WATER 100 ML IVPB SCH (10:00)
[2022-10-09] MEDS: CARVEDILOL 12.5 MG TABLET (FP) PO SCH ×3 (10:15→23:33)
[2022-10-09] MEDS: CLOPIDOGREL BISULFATE 75 MG TABLET (FP) PO SCH (10:15)
[2022-10-09] MEDS: predniSONE 20 MG TABLET (UD) PO SCH (10:15)
[2022-10-09] MEDS: FUROSEMIDE 40 MG TABLET (FP) PO SCH (10:15)
[2022-10-09] MEDS: BUDESONIDE/FORMETEROL FUMARATE 160/4.5 mcg INHALER IH SCH ×2 (10:16→21:37)
[2022-10-09] MEDS: HYDROmorphone HCL 2 MG TABLET PO SCH ×3 (10:16→23:33)
[2022-10-09] MEDS: LOSARTAN POTASSIUM 50 MG TABLET PO SCH (10:16)
[2022-10-09] MEDS: ENOXAPARIN NA (PORCINE) 40 MG/0.4 ML DISP.SYRIN SQ SCH (10:17)
[2022-10-09] MEDS: AMINO ACIDS/PROTEIN HYDROLYS 30 ML LIQUID.PKT PO SCH (10:17)
[2022-10-09] MEDS: ASPIRIN 81 MG CHEWABLE TABLETS PO SCH (10:19)
[2022-10-09] MEDS: VALPROATE SODIUM INJECTION 250 MG in SODIUM CHLORIDE 50 ML IVPB SCH ×2 (11:14→18:20)
[2022-10-09] MEDS ORDERED: ACETAMINOPHEN 1000 MG/100 ML BAG IVPB ONE (11:15)
[2022-10-09] MEDS ORDERED: SCOPOLAMINE HYDROBROMIDE 1 PATCH PATCH.TD72 TD SCH (11:30)
[2022-10-09] MEDS ORDERED: VALPROATE SODIUM 500 MG/5 ML VIAL IVPB SCH (12:00)
[2022-10-09] MEDS: ALBUTEROL SO4 0.042% IH SOL 1.25 MG/3 ML VIAL.NEB NEB PRN ×2 (12:01→20:28)
[2022-10-09] MEDS ORDERED: MAGNESIUM 2GM/50ML STERILE WATER IVPB IVPB ONE (15:46)
[2022-10-09] MEDS ORDERED: NAPH,MB-DB/K PH,MBDB POWDER PACKET GT ONE (15:46)
[2022-10-09] MEDS: OLANZapine 2.5 MG TABLET PO SCH ×2 (21:36→23:33)
[2022-10-09] MEDS: ATORVASTATIN CA 40 MG TABLET (FP) PO SCH ×2 (21:36→23:33)
[2022-10-09] MEDS ORDERED: PANTOPRAZOLE SODIUM 40 MG VIAL IVPUSH ONE (23:41)
[2022-10-09] MEDS ORDERED: SODIUM CHLORIDE 1,000 ML IV STA (23:58)
[2022-10-10] MEDS ORDERED: PANTOPRAZOLE SODIUM 40 MG VIAL IVPUSH ONE (01:04)
[2022-10-10 01:20] LABS: HEMATOCRIT 14.1 % (32.4-45.2); MCH 26.7 pg (25.7-33.7); MCHC 32.1 g/dl (32.0-36.0); MEAN CELL VOLUME 83.4 fl (80-96); PLATELET COUNT 285 10^3/uL (134-434); RBC 1.69 M/mm3 (3.60-5.2); RDW 14.2 % (11.6-15.6)
[2022-10-10 01:23] LABS: HEMOGLOBIN 4.5 GM/dL (10.7-15.3)
[2022-10-10 01:36] LABS: ARTERIAL BLD GAS O2 SATURATION 99.2 % (95-98); ARTERIAL BLOOD GAS BASE EXCESS 15.6 mmol/L (-2-2); ARTERIAL BLOOD GAS PO2 175.1 mmHg (80-100); ARTERIAL BLOOD GAS pH 7.457 (7.350-7.450)
[2022-10-10 01:43] LABS: CREATININE 0.6 mg/dL (0.55-1.3); PHOSPHOROUS 3.2 mg/dL (2.5-4.9)
[2022-10-10 01:45] LABS: BILIRUBIN,TOTAL 0.2 mg/dL (0.2-1); TOT PROT 4.2 g/dl (6.4-8.2)
[2022-10-10] MEDS: PANTOPRAZOLE SODIUM 80 MG in SODIUM CHLORIDE 100 ML IVPB SCH ×3 (02:32→20:18)
[2022-10-10] MEDS: PHENYLEPHRINE NS PREMIX 50,000 MCG/500 ML BAG CVP SCH (02:32)
[2022-10-10 02:47] LABS: BLOOD UREA NITROGEN 73.3 mg/dL (7-18)
[2022-10-10 03:28] LABS: ANISOCYTOSIS 2+; MACROCYTOSIS 0
[2022-10-10] MEDS: VALPROATE SODIUM INJECTION 250 MG in SODIUM CHLORIDE 50 ML IVPB SCH ×5 (06:38→23:06)
[2022-10-10] MEDS: INSULIN SLIDING SCALE (NOVOLOG) 1 VIAL SQ SCH ×4 (06:39→23:11)
[2022-10-10] MEDS ORDERED: MAGNESIUM SULFATE IN WATER 2 GM/50 ML IVPB IVPB ONE (07:00)
[2022-10-10] MEDS ORDERED: ALBUTEROL SO4 2.5/IPRATROPIUM 0.5 INH SOL 3 ML VIAL.NEB. NEB SCH (08:00)
[2022-10-10] MEDS ORDERED: AMINO ACIDS/PROTEIN HYDROLYS 30 ML LIQUID.PKT PO SCH (08:00)
[2022-10-10] MEDS: ACETYLCYSTEINE 20% 200MG/ML 4 ML VIAL *FOR ORAL / INH USE ONLY NEB SCH ×4 (08:12→20:30)
[2022-10-10] MEDS: ALBUTEROL SO4 0.042% IH SOL 1.25 MG/3 ML VIAL.NEB NEB PRN ×4 (08:13→20:30)
[2022-10-10] MEDS ORDERED: DESMOPRESSIN ACETATE 4 MCG/ML AMP IVPB ONE (08:50)
[2022-10-10 08:59] LABS: HEMATOCRIT 21.9 % (32.4-45.2); HEMOGLOBIN 7.2 GM/dL (10.7-15.3); MCH 27.3 pg (25.7-33.7); MEAN CELL VOLUME 82.9 fl (80-96); MEAN PLT VOLUME 8.5 fl (7.5-11.1); PLATELET COUNT 234 10^3/uL (134-434); RBC 2.64 M/mm3 (3.60-5.2); RDW 15.2 % (11.6-15.6); WHITE BLOOD COUNT 29.7 K/mm3 (4.0-10.0)
[2022-10-10] MEDS: GABAPENTIN 300 MG CAPSULE PO SCH ×4 (09:16→23:06)
[2022-10-10] MEDS: MUPIROCIN 2% TOPICAL OINTMENT FOR DECOLONIZATION NS SCH ×2 (09:18→21:12)
[2022-10-10] MEDS: CEFTRIAXONE 2 GM in DEXTROSE 5%-WATER 100 ML IVPB SCH (09:19)
[2022-10-10] MEDS: BUDESONIDE/FORMETEROL FUMARATE 160/4.5 mcg INHALER IH SCH ×2 (09:20→21:13)
[2022-10-10 09:23] LABS: ALBUMIN 1.9 g/dl (3.4-5.0); BLOOD UREA NITROGEN 63.6 mg/dL (7-18); MAGNESIUM 1.9 mg/dL (1.8-2.4)
[2022-10-10 09:26] LABS: CREATININE 0.4 mg/dL (0.55-1.3)
[2022-10-10 09:27] LABS: BILIRUBIN,TOTAL 0.4 mg/dL (0.2-1)
[2022-10-10 09:28] LABS: TOT PROT 4.2 g/dl (6.4-8.2)
[2022-10-10 09:45] LABS: ANISOCYTOSIS 2+; MACROCYTOSIS 0
[2022-10-10] MEDS ORDERED: LOSARTAN POTASSIUM 50 MG TABLET PO SCH (10:00)
[2022-10-10] MEDS ORDERED: ACETAMINOPHEN 1000 MG/100 ML BAG IVPB STA ×2 (11:02→23:06)
[2022-10-10 17:51] LABS: HEMATOCRIT 19.8 % (32.4-45.2); MCH 27.2 pg (25.7-33.7); MCHC 33.4 g/dl (32.0-36.0); MEAN CELL VOLUME 81.2 fl (80-96); MEAN PLT VOLUME 8.3 fl (7.5-11.1); PLATELET COUNT 185 10^3/uL (134-434); RBC 2.44 M/mm3 (3.60-5.2); RDW 17.1 % (11.6-15.6); WHITE BLOOD COUNT 19.9 K/mm3 (4.0-10.0)
[2022-10-10 17:56] LABS: HEMOGLOBIN 6.6 GM/dL (10.7-15.3)
[2022-10-10] MEDS: ATORVASTATIN CA 40 MG TABLET (FP) PO SCH (21:11)
[2022-10-10] MEDS: CHLORHEXIDINE GLUCONATE 4% CLEANSER FOR DECOLONIZATION TP SCH (21:14)
[2022-10-10] MEDS ORDERED: OLANZapine 2.5 MG TABLET PO SCH (22:00)
[2022-10-10] MEDS ORDERED: OLANZAPINE 5 MG, OLANZAPINE 2.5 MG PO SCH (22:00)
[2022-10-10] MEDS ORDERED: HYDROmorphone HCl 2 MG/ML VIAL IVPUSH STA (23:06)
[2022-10-11] MEDS: PHENYLEPHRINE NS PREMIX 50,000 MCG/500 ML BAG CVP SCH (00:34)
[2022-10-11] MEDS: VALPROATE SODIUM INJECTION 250 MG in SODIUM CHLORIDE 50 ML IVPB SCH ×4 (06:08→23:46)
[2022-10-11] MEDS: PANTOPRAZOLE SODIUM 80 MG in SODIUM CHLORIDE 100 ML IVPB SCH ×2 (06:08→17:10)
[2022-10-11] MEDS: INSULIN SLIDING SCALE (NOVOLOG) 1 VIAL SQ SCH ×4 (06:08→23:46)
[2022-10-11] MEDS: ALBUTEROL SO4 0.042% IH SOL 1.25 MG/3 ML VIAL.NEB NEB PRN ×4 (07:20→20:00)
[2022-10-11] MEDS: ACETYLCYSTEINE 20% 200MG/ML 4 ML VIAL *FOR ORAL / INH USE ONLY NEB SCH ×4 (07:20→20:00)
[2022-10-11] MEDS: GABAPENTIN 300 MG CAPSULE PO SCH ×3 (07:34→23:46)
[2022-10-11 07:40] LABS: HEMATOCRIT 15.3 % (32.4-45.2); MCH 27.8 pg (25.7-33.7); MEAN CELL VOLUME 81.8 fl (80-96); MEAN PLT VOLUME 9.3 fl (7.5-11.1); PLATELET COUNT 191 10^3/uL (134-434); RBC 1.87 M/mm3 (3.60-5.2); WHITE BLOOD COUNT 21.7 K/mm3 (4.0-10.0)
[2022-10-11 08:01] LABS: HEMOGLOBIN 5.2 GM/dL (10.7-15.3)
[2022-10-11 09:15] LABS: BLOOD UREA NITROGEN 62.8 mg/dL (7-18); CALCIUM 8.2 mg/dL (8.5-10.1); MAGNESIUM 2.3 mg/dL (1.8-2.4)
[2022-10-11 09:19] LABS: CREATININE 0.3 mg/dL (0.55-1.3); PHOSPHOROUS 2.1 mg/dL (2.5-4.9)
[2022-10-11] MEDS: CEFTRIAXONE 2 GM in DEXTROSE 5%-WATER 100 ML IVPB SCH (09:27)
[2022-10-11] MEDS: MUPIROCIN 2% TOPICAL OINTMENT FOR DECOLONIZATION NS SCH ×2 (09:28→21:23)
[2022-10-11] MEDS: BUDESONIDE/FORMETEROL FUMARATE 160/4.5 mcg INHALER IH SCH ×2 (09:28→21:24)
[2022-10-11] MEDS ORDERED: POTASSIUM PHOSPHATE 15 MM in SODIUM CHLORIDE 250 ML IVPB ONE (17:00)
[2022-10-11 18:33] LABS: HEMATOCRIT 26.1 % (32.4-45.2); HEMOGLOBIN 8.6 GM/dL (10.7-15.3); MCH 27.2 pg (25.7-33.7); MCHC 32.9 g/dl (32.0-36.0); MEAN CELL VOLUME 82.6 fl (80-96); MEAN PLT VOLUME 8.9 fl (7.5-11.1); PLATELET COUNT 168 10^3/uL (134-434); RBC 3.16 M/mm3 (3.60-5.2); RDW 15.1 % (11.6-15.6); WHITE BLOOD COUNT 19.7 K/mm3 (4.0-10.0)
[2022-10-11] MEDS: CHLORHEXIDINE GLUCONATE 4% CLEANSER FOR DECOLONIZATION TP SCH (21:23)
[2022-10-11] MEDS: ATORVASTATIN CA 40 MG TABLET (FP) PO SCH (21:23)
[2022-10-11] MEDS: ACETAMINOPHEN 1000 MG/100 ML BAG IVPB PRN (23:57)
[2022-10-12] MEDS: PHENYLEPHRINE NS PREMIX 50,000 MCG/500 ML BAG CVP SCH (01:11)
[2022-10-12] MEDS: PANTOPRAZOLE SODIUM 80 MG in SODIUM CHLORIDE 100 ML IVPB SCH ×3 (04:20→22:28)
[2022-10-12] MEDS: INSULIN SLIDING SCALE (NOVOLOG) 1 VIAL SQ SCH ×4 (05:48→23:59)
[2022-10-12] MEDS: VALPROATE SODIUM INJECTION 250 MG in SODIUM CHLORIDE 50 ML IVPB SCH ×4 (05:49→23:56)
[2022-10-12 07:42] LABS: HEMATOCRIT 23.6 % (32.4-45.2); HEMOGLOBIN 8.2 GM/dL (10.7-15.3); MCH 28.9 pg (25.7-33.7); MCHC 34.9 g/dl (32.0-36.0); MEAN CELL VOLUME 82.8 fl (80-96); MEAN PLT VOLUME 9.3 fl (7.5-11.1); PLATELET COUNT 173 10^3/uL (134-434); RBC 2.85 M/mm3 (3.60-5.2); RDW 14.9 % (11.6-15.6); WHITE BLOOD COUNT 20.4 K/mm3 (4.0-10.0)
[2022-10-12] MEDS: ALBUTEROL SO4 0.042% IH SOL 1.25 MG/3 ML VIAL.NEB NEB PRN (08:00)
[2022-10-12] MEDS: GABAPENTIN 300 MG CAPSULE PO SCH ×3 (08:00→23:56)
[2022-10-12] MEDS: ACETYLCYSTEINE 20% 200MG/ML 4 ML VIAL *FOR ORAL / INH USE ONLY NEB SCH ×4 (08:00→20:05)
[2022-10-12 08:57] LABS: ALBUMIN 2.1 g/dl (3.4-5.0); CALCIUM 8.4 mg/dL (8.5-10.1)
[2022-10-12 08:58] LABS: MAGNESIUM 2.3 mg/dL (1.8-2.4)
[2022-10-12 09:00] LABS: CREATININE 0.2 mg/dL (0.55-1.3)
[2022-10-12 09:02] LABS: PHOSPHOROUS 2.3 mg/dL (2.5-4.9)
[2022-10-12 09:04] LABS: TOT PROT 4.2 g/dl (6.4-8.2)
[2022-10-12 09:06] LABS: BILIRUBIN,TOTAL 0.8 mg/dL (0.2-1); BLOOD UREA NITROGEN 34.4 mg/dL (7-18)
[2022-10-12] MEDS: BUDESONIDE/FORMETEROL FUMARATE 160/4.5 mcg INHALER IH SCH ×2 (09:24→22:15)
[2022-10-12] MEDS: MUPIROCIN 2% TOPICAL OINTMENT FOR DECOLONIZATION NS SCH ×2 (09:24→22:15)
[2022-10-12] MEDS: CEFTRIAXONE 2 GM in DEXTROSE 5%-WATER 100 ML IVPB SCH (09:24)
[2022-10-12] MEDS ORDERED: morphine CARPU-JECT 2 MG/1 ML DISP.SYRIN IVPUSH PRN (10:24)
[2022-10-12] MEDS: ACETAMINOPHEN 1000 MG/100 ML BAG IVPB PRN (11:25)
[2022-10-12] MEDS ORDERED: SCOPOLAMINE HYDROBROMIDE 1 PATCH PATCH.TD72 TD SCH (11:30)
[2022-10-12] MEDS ORDERED: POTASSIUM PHOSPHATE 30 MM in SODIUM CHLORIDE 250 ML IVPB ONE (13:30)
[2022-10-12] MEDS ORDERED: DEXTROSE 5%-0.45% SALINE 1,000 ML IV SCH (19:00)
[2022-10-12 20:34] LABS: HEMATOCRIT 23.3 % (32.4-45.2); HEMOGLOBIN 7.7 GM/dL (10.7-15.3); MCHC 33.1 g/dl (32.0-36.0); MEAN CELL VOLUME 84.4 fl (80-96); MEAN PLT VOLUME 8.6 fl (7.5-11.1); PLATELET COUNT 200 10^3/uL (134-434); RBC 2.76 M/mm3 (3.60-5.2); RDW 15.3 % (11.6-15.6); WHITE BLOOD COUNT 16.7 K/mm3 (4.0-10.0)
[2022-10-12] MEDS: ATORVASTATIN CA 40 MG TABLET (FP) PO SCH (22:14)
[2022-10-12] MEDS: CHLORHEXIDINE GLUCONATE 4% CLEANSER FOR DECOLONIZATION TP SCH (22:14)
[2022-10-13] MEDS: PHENYLEPHRINE NS PREMIX 50,000 MCG/500 ML BAG CVP SCH (01:11)
[2022-10-13] MEDS: PANTOPRAZOLE SODIUM 80 MG in SODIUM CHLORIDE 100 ML IVPB SCH (01:36)
[2022-10-13] MEDS: INSULIN SLIDING SCALE (NOVOLOG) 1 VIAL SQ SCH ×4 (05:57→23:44)
[2022-10-13] MEDS: VALPROATE SODIUM INJECTION 250 MG in SODIUM CHLORIDE 50 ML IVPB SCH (05:59)
[2022-10-13] MEDS ORDERED: DEXTROSE 5%-WATER - 1,000 ML IV SCH (06:00)
[2022-10-13] MEDS ORDERED: ACETAMINOPHEN 1000 MG/100 ML BAG IVPB PRN (08:09)
[2022-10-13 08:17] LABS: CHLORIDE 122 mmol/L (98-107)
[2022-10-13 08:20] LABS: ALBUMIN 2.2 g/dl (3.4-5.0); BLOOD UREA NITROGEN 18.8 mg/dL (7-18); CO2 37 mmol/L (21-32); GLUCOSE,RANDOM 85 mg/dL (74-106); HEMATOCRIT 28.9 % (32.4-45.2); HEMOGLOBIN 9.8 GM/dL (10.7-15.3); MAGNESIUM 2.1 mg/dL (1.8-2.4); MCH 28.7 pg (25.7-33.7); MCHC 33.8 g/dl (32.0-36.0); MEAN CELL VOLUME 84.8 fl (80-96); MEAN PLT VOLUME 8.8 fl (7.5-11.1); PLATELET COUNT 197 10^3/uL (134-434); RBC 3.41 M/mm3 (3.60-5.2); RDW 15.5 % (11.6-15.6); WHITE BLOOD COUNT 17.3 K/mm3 (4.0-10.0)
[2022-10-13 08:22] LABS: SGPT/ALT 30 U/L (13-61)
[2022-10-13 08:23] LABS: CREATININE 0.3 mg/dL (0.55-1.3); PHOSPHOROUS 2.1 mg/dL (2.5-4.9); SGOT/AST 14 U/L (15-37)
[2022-10-13 08:24] LABS: BILIRUBIN,TOTAL 0.6 mg/dL (0.2-1); TOT PROT 4.6 g/dl (6.4-8.2)
[2022-10-13 08:25] LABS: ALK PHOS 48 U/L (45-117)
[2022-10-13 08:26] LABS: ANION GAP 3 MMOL/L (8-16); SODIUM 163 mmol/L (136-145)
[2022-10-13] MEDS: GABAPENTIN 300 MG CAPSULE PO SCH ×3 (08:57→23:44)
[2022-10-13] MEDS ORDERED: AMINO ACIDS 4.25%/D5W 1,000 ML IV SCH (09:45)
[2022-10-13] MEDS ORDERED: PANTOPRAZOLE SODIUM 40 MG VIAL IVPUSH SCH (10:00)
[2022-10-13] MEDS: CEFTRIAXONE 2 GM in DEXTROSE 5%-WATER 100 ML IVPB SCH (10:10)
[2022-10-13] MEDS: BUDESONIDE/FORMETEROL FUMARATE 160/4.5 mcg INHALER IH SCH ×2 (10:12→21:42)
[2022-10-13] MEDS: MUPIROCIN 2% TOPICAL OINTMENT FOR DECOLONIZATION NS SCH ×2 (10:12→21:42)
[2022-10-13] MEDS ORDERED: VALPROATE SODIUM INJECTION 250 MG in DEXTROSE 5%-WATER - 50 ML IVPB SCH (11:41)
[2022-10-13] MEDS: THIAMINE HCL 200 MG/2 ML VIAL IVPB SCH (13:06)
[2022-10-13] MEDS: PANTOPRAZOLE SODIUM 160 MG in DEXTROSE 5%-WATER - 290 ML IVPB SCH (13:17)
[2022-10-13] MEDS: VALPROATE SODIUM INJECTION 250 MG in DEXTROSE 5%-WATER - 50 ML IVPB SCH ×3 (13:18→23:44)
[2022-10-13 13:25] VITALS: BMI 28.3
[2022-10-13] MEDS ORDERED: POTASSIUM CHLORIDE 10 MEQ in DEXTROSE 5%-WATER - 1,000 ML IV SCH (15:00)
[2022-10-13 15:04] LABS: HEMATOCRIT 28.6 % (32.4-45.2); HEMOGLOBIN 9.8 GM/dL (10.7-15.3); MCH 28.9 pg (25.7-33.7); MCHC 34.3 g/dl (32.0-36.0); MEAN CELL VOLUME 84.3 fl (80-96); PLATELET COUNT 201 10^3/uL (134-434); RBC 3.39 M/mm3 (3.60-5.2); RDW 15.9 % (11.6-15.6); WHITE BLOOD COUNT 18.7 K/mm3 (4.0-10.0)
[2022-10-13] MEDS: POTASSIUM CHLORIDE 20 MEQ in AMINO ACIDS 4.25%/D5W 1,000 ML IV SCH (15:38)
[2022-10-13] MEDS ORDERED: NAPH,MB-DB/K PH,MBDB POWDER PACKET PO ONE (18:01)
[2022-10-13] MEDS ORDERED: KCL 20 MEQ PREMIX BAG 100 ML IVPB SCH (18:30)
[2022-10-13] MEDS: ACETYLCYSTEINE 20% 200MG/ML 4 ML VIAL *FOR ORAL / INH USE ONLY NEB SCH (20:07)
[2022-10-13] MEDS: ATORVASTATIN CA 40 MG TABLET (FP) PO SCH (21:42)
[2022-10-13] MEDS: CHLORHEXIDINE GLUCONATE 4% CLEANSER FOR DECOLONIZATION TP SCH (21:42)
[2022-10-14] MEDS ORDERED: ONDANSETRON 4 MG/2 ML VIAL IVPUSH PRN (03:22)
[2022-10-14] MEDS ORDERED: ALBUTEROL SO4 2.5/IPRATROPIUM 0.5 INH SOL 3 ML VIAL.NEB. NEB PRN (03:24)
[2022-10-14] MEDS: PANTOPRAZOLE SODIUM 160 MG in DEXTROSE 5%-WATER - 290 ML IVPB SCH ×2 (04:44→08:32)
[2022-10-14] MEDS: VALPROATE SODIUM INJECTION 250 MG in DEXTROSE 5%-WATER - 50 ML IVPB SCH ×3 (06:31→17:32)
[2022-10-14] MEDS: INSULIN SLIDING SCALE (NOVOLOG) 1 VIAL SQ SCH ×3 (06:34→18:10)
[2022-10-14 06:51] LABS: HEMATOCRIT 27.7 % (32.4-45.2); HEMOGLOBIN 9.4 GM/dL (10.7-15.3); MCH 28.8 pg (25.7-33.7); MCHC 33.8 g/dl (32.0-36.0); MEAN CELL VOLUME 85.2 fl (80-96); PLATELET COUNT 182 10^3/uL (134-434); RBC 3.25 M/mm3 (3.60-5.2); RDW 15.6 % (11.6-15.6); WHITE BLOOD COUNT 16.7 K/mm3 (4.0-10.0)
[2022-10-14 07:22] LABS: ALBUMIN 2.1 g/dl (3.4-5.0); BLOOD UREA NITROGEN 15.4 mg/dL (7-18); CALCIUM 7.9 mg/dL (8.5-10.1); MAGNESIUM 1.8 mg/dL (1.8-2.4)
[2022-10-14 07:25] LABS: CREATININE 0.2 mg/dL (0.55-1.3)
[2022-10-14 07:27] LABS: BILIRUBIN,TOTAL 0.4 mg/dL (0.2-1); TOT PROT 4.5 g/dl (6.4-8.2)
[2022-10-14] MEDS ORDERED: MAGNESIUM 1GM/D5W 100ML - 100 ML IVPB IVPB ONE (08:00)
[2022-10-14] MEDS ORDERED: NAPH,MB-DB/K PH,MBDB POWDER PACKET PO ONE (08:00)
[2022-10-14] MEDS: GABAPENTIN 300 MG CAPSULE PO SCH ×2 (08:03→15:29)
[2022-10-14] MEDS ORDERED: KCL 20 MEQ PREMIX BAG 20 MEQ in KCL 20 MEQ PREMIX BAG 100 ML IVPB SCH (08:15)
[2022-10-14] MEDS: KCL 20 MEQ PREMIX BAG 100 ML IVPB SCH ×3 (08:29→11:46)
[2022-10-14] MEDS: THIAMINE HCL 200 MG/2 ML VIAL IVPB SCH (09:58)
[2022-10-14] MEDS: MUPIROCIN 2% TOPICAL OINTMENT FOR DECOLONIZATION NS SCH ×2 (09:58→22:20)
[2022-10-14] MEDS: BUDESONIDE/FORMETEROL FUMARATE 160/4.5 mcg INHALER IH SCH ×2 (09:58→22:20)
[2022-10-14] MEDS: CEFTRIAXONE 2 GM in DEXTROSE 5%-WATER 100 ML IVPB SCH (09:58)
[2022-10-14] MEDS: ACETYLCYSTEINE 20% 200MG/ML 4 ML VIAL *FOR ORAL / INH USE ONLY NEB SCH (09:59)
[2022-10-14] MEDS: POTASSIUM CHLORIDE 20 MEQ in AMINO ACIDS 4.25%/D5W 1,000 ML IV SCH (14:55)
[2022-10-14] MEDS: ATORVASTATIN CA 40 MG TABLET (FP) PO SCH (22:20)
[2022-10-14] MEDS: PANTOPRAZOLE SODIUM 40 MG VIAL IVPUSH SCH (22:21)
[2022-10-15] MEDS: GABAPENTIN 300 MG CAPSULE PO SCH ×4 (01:09→23:50)
[2022-10-15] MEDS: INSULIN SLIDING SCALE (NOVOLOG) 1 VIAL SQ SCH ×4 (01:10→17:01)
[2022-10-15] MEDS: VALPROATE SODIUM INJECTION 250 MG in DEXTROSE 5%-WATER - 50 ML IVPB SCH ×4 (06:17→22:40)
[2022-10-15] MEDS ORDERED: ONDANSETRON 4 MG/2 ML VIAL IVPUSH PRN (09:14)
[2022-10-15] MEDS ORDERED: ALBUTEROL SO4 0.042% IH SOL 1.25 MG/3 ML VIAL.NEB NEB PRN (09:14)
[2022-10-15] MEDS ORDERED: ALBUTEROL SO4 2.5/IPRATROPIUM 0.5 INH SOL 3 ML VIAL.NEB. NEB PRN (09:14)
[2022-10-15] MEDS: THIAMINE HCL 200 MG/2 ML VIAL IVPB SCH (10:36)
[2022-10-15] MEDS: CEFTRIAXONE 2 GM in DEXTROSE 5%-WATER 100 ML IVPB SCH (10:36)
[2022-10-15] MEDS: PANTOPRAZOLE SODIUM 40 MG VIAL IVPUSH SCH ×2 (10:36→21:02)
[2022-10-15] MEDS: BUDESONIDE/FORMETEROL FUMARATE 160/4.5 mcg INHALER IH SCH ×2 (10:37→21:05)
[2022-10-15] MEDS ORDERED: VALPROATE SODIUM INJECTION 250 MG in DEXTROSE 5%-WATER - 50 ML IVPB SCH (12:00)
[2022-10-15] MEDS ORDERED: POTASSIUM CHLORIDE 20 MEQ in AMINO ACIDS 4.25%/D5W 1,000 ML IV SCH (13:26)
[2022-10-15] MEDS: ALBUTEROL SO4 2.5/IPRATROPIUM 0.5 INH SOL 3 ML VIAL.NEB. NEB SCH ×2 (14:10→20:05)
[2022-10-15 15:26] LABS: CALCIUM 7.4 mg/dL (8.5-10.1)
[2022-10-15 15:27] LABS: ALBUMIN 1.9 g/dl (3.4-5.0); MAGNESIUM 1.7 mg/dL (1.8-2.4)
[2022-10-15 15:30] LABS: CREATININE 0.2 mg/dL (0.55-1.3); PHOSPHOROUS 1.8 mg/dL (2.5-4.9)
[2022-10-15 15:31] LABS: BILIRUBIN,TOTAL 0.4 mg/dL (0.2-1); TOT PROT 4.2 g/dl (6.4-8.2)
[2022-10-15] MEDS ORDERED: MAGNESIUM SULF 50% (8.12 MEQ/2 ML-1 GM VIAL) IVPB ONE (18:15)
[2022-10-15] MEDS ORDERED: SODIUM PHOSPHATE - 15 MM in SODIUM CHLORIDE 250 ML IVPB ONE (19:00)
[2022-10-15] MEDS ORDERED: DEXTROSE 5%-WATER - 1,000 ML IV SCH (19:45)
[2022-10-15] MEDS ORDERED: SODIUM CHLORIDE 1,000 ML IV STA (20:29)
[2022-10-15] MEDS ORDERED: SODIUM CHLORIDE 1 GM TABLET PO ONE (20:30)
[2022-10-15 21:09] LABS: BASO % 0.3 % (0-2.0); EOS % 6.5 % (0-4.5); HEMATOCRIT 26.4 % (32.4-45.2); HEMOGLOBIN 8.8 GM/dL (10.7-15.3); LYMPH % 15.3 % (8-40); MCH 28.7 pg (25.7-33.7); MCHC 33.5 g/dl (32.0-36.0); MEAN CELL VOLUME 85.6 fl (80-96); MEAN PLT VOLUME 8.6 fl (7.5-11.1); MONO % 6.5 % (3.8-10.2); NEUT % 71.4 % (42.8-82.8); PLATELET COUNT 167 10^3/uL (134-434); RBC 3.08 M/mm3 (3.60-5.2); RDW 14.9 % (11.6-15.6); WHITE BLOOD COUNT 10.8 K/mm3 (4.0-10.0)
[2022-10-15 21:30] LABS: CALCIUM 7.7 mg/dL (8.5-10.1)
[2022-10-15 21:34] LABS: CREATININE 0.2 mg/dL (0.55-1.3)
[2022-10-15] MEDS ORDERED: MAGNESIUM SULF 50% (8.12 MEQ/2 ML-1 GM VIAL) ONE (21:50)
[2022-10-15] MEDS: ATORVASTATIN CA 40 MG TABLET (FP) PO SCH (23:50)
[2022-10-16] MEDS: INSULIN SLIDING SCALE (NOVOLOG) 1 VIAL SQ SCH ×5 (00:23→23:21)
[2022-10-16] MEDS: VALPROATE SODIUM INJECTION 250 MG in DEXTROSE 5%-WATER - 50 ML IVPB SCH ×4 (03:49→20:13)
[2022-10-16] MEDS: GABAPENTIN 300 MG CAPSULE PO SCH ×3 (08:19→23:17)
[2022-10-16] MEDS: ALBUTEROL SO4 2.5/IPRATROPIUM 0.5 INH SOL 3 ML VIAL.NEB. NEB SCH ×3 (08:40→20:30)
[2022-10-16] MEDS: CEFTRIAXONE 2 GM in DEXTROSE 5%-WATER 100 ML IVPB SCH (09:30)
[2022-10-16] MEDS: THIAMINE HCL 200 MG/2 ML VIAL IVPB SCH (09:31)
[2022-10-16] MEDS: PANTOPRAZOLE SODIUM 40 MG VIAL IVPUSH SCH ×2 (09:32→21:09)
[2022-10-16] MEDS: BUDESONIDE/FORMETEROL FUMARATE 160/4.5 mcg INHALER IH SCH ×2 (11:14→21:09)
[2022-10-16 11:35] LABS: BASO % 0.6 % (0-2.0); EOS % 6.6 % (0-4.5); HEMATOCRIT 27.2 % (32.4-45.2); HEMOGLOBIN 9.3 GM/dL (10.7-15.3); LYMPH % 15.5 % (8-40); MCH 29.3 pg (25.7-33.7); MCHC 34.1 g/dl (32.0-36.0); MEAN CELL VOLUME 85.9 fl (80-96); MEAN PLT VOLUME 8.3 fl (7.5-11.1); NEUT % 71.3 % (42.8-82.8); PLATELET COUNT 184 10^3/uL (134-434); RBC 3.17 M/mm3 (3.60-5.2); RDW 15.1 % (11.6-15.6)
[2022-10-16 11:57] LABS: CALCIUM 7.5 mg/dL (8.5-10.1)
[2022-10-16] MEDS ORDERED: DEXTROSE 5%-0.45% SALINE 1,000 ML IV SCH (12:00)
[2022-10-16 12:01] LABS: CREATININE 0.2 mg/dL (0.55-1.3)
[2022-10-16 14:45] LABS: CALCIUM 7.3 mg/dL (8.5-10.1)
[2022-10-16 14:46] LABS: BLOOD UREA NITROGEN 7.3 mg/dL (7-18)
[2022-10-16 14:49] LABS: CREATININE 0.2 mg/dL (0.55-1.3)
[2022-10-16] MEDS ORDERED: POTASSIUM CHLORIDE ORAL LIQUID 20 MEQ/15 ML PO ONE (15:15)
[2022-10-16] MEDS: ATORVASTATIN CA 40 MG TABLET (FP) PO SCH (21:09)
[2022-10-16 22:18] LABS: CALCIUM 7.4 mg/dL (8.5-10.1)
[2022-10-16 22:19] LABS: BLOOD UREA NITROGEN 6.3 mg/dL (7-18)
[2022-10-16 22:22] LABS: CREATININE 0.2 mg/dL (0.55-1.3)
[2022-10-17] MEDS: CHLORHEXIDINE GLUCONATE 4% CLEANSER FOR DECOLONIZATION TP SCH (02:23)
[2022-10-17] MEDS: VALPROATE SODIUM INJECTION 250 MG in DEXTROSE 5%-WATER - 50 ML IVPB SCH ×4 (03:15→21:25)
[2022-10-17] MEDS: INSULIN SLIDING SCALE (NOVOLOG) 1 VIAL SQ SCH ×4 (06:09→23:50)
[2022-10-17] MEDS: ALBUTEROL SO4 2.5/IPRATROPIUM 0.5 INH SOL 3 ML VIAL.NEB. NEB SCH ×3 (08:20→20:27)
[2022-10-17 08:28] LABS: BASO % 0.2 % (0-2.0); HEMATOCRIT 26.2 % (32.4-45.2); HEMOGLOBIN 8.9 GM/dL (10.7-15.3); LYMPH % 15.7 % (8-40); MCH 29.2 pg (25.7-33.7); MCHC 33.9 g/dl (32.0-36.0); MEAN PLT VOLUME 8.6 fl (7.5-11.1); MONO % 8.1 % (3.8-10.2); PLATELET COUNT 188 10^3/uL (134-434); RBC 3.04 M/mm3 (3.60-5.2); RDW 15.6 % (11.6-15.6)
[2022-10-17 09:04] LABS: CALCIUM 7.8 mg/dL (8.5-10.1)
[2022-10-17 09:05] LABS: ALBUMIN 1.9 g/dl (3.4-5.0); BLOOD UREA NITROGEN 3.7 mg/dL (7-18); MAGNESIUM 1.7 mg/dL (1.8-2.4)
[2022-10-17 09:08] LABS: CREATININE 0.2 mg/dL (0.55-1.3); PHOSPHOROUS 2.2 mg/dL (2.5-4.9)
[2022-10-17 09:10] LABS: BILIRUBIN,TOTAL 0.3 mg/dL (0.2-1); TOT PROT 4.5 g/dl (6.4-8.2)
[2022-10-17] MEDS ORDERED: MAGNESIUM SULF 50% (8.12 MEQ/2 ML-1 GM VIAL) IVPB ONE ×2 (09:34→10:00)
[2022-10-17] MEDS ORDERED: POTASSIUM PHOSPHATE 15 MM in SODIUM CHLORIDE 250 ML IVPB ONE (10:30)
[2022-10-17] MEDS: PANTOPRAZOLE SODIUM 40 MG VIAL IVPUSH SCH ×2 (10:52→21:19)
[2022-10-17] MEDS: GABAPENTIN 300 MG CAPSULE PO SCH ×3 (10:52→23:08)
[2022-10-17] MEDS ORDERED: FUROSEMIDE 40 MG/4 ML INJECTABLE VIAL IVPUSH ONE (11:06)
[2022-10-17] MEDS: BUDESONIDE/FORMETEROL FUMARATE 160/4.5 mcg INHALER IH SCH ×2 (11:11→22:16)
[2022-10-17] MEDS: CEFTRIAXONE 2 GM in DEXTROSE 5%-WATER 100 ML IVPB SCH (11:23)
[2022-10-17] MEDS: THIAMINE HCL 200 MG/2 ML VIAL IVPB SCH (12:03)
[2022-10-17] MEDS: ATORVASTATIN CA 40 MG TABLET (FP) PO SCH (21:19)
[2022-10-18] MEDS: INSULIN SLIDING SCALE (NOVOLOG) 1 VIAL SQ SCH ×3 (05:32→19:12)
[2022-10-18] MEDS: ALBUTEROL SO4 2.5/IPRATROPIUM 0.5 INH SOL 3 ML VIAL.NEB. NEB SCH ×3 (07:20→19:59)
[2022-10-18] MEDS ORDERED: DEXTROSE 50%-WATER 25 GM/50 ML DISP.SYRIN IVPUSH PRN (08:40)
[2022-10-18] MEDS: GABAPENTIN 300 MG CAPSULE PO SCH ×2 (09:05→17:29)
[2022-10-18] MEDS: PANTOPRAZOLE SODIUM 40 MG VIAL IVPUSH SCH (09:05)
[2022-10-18] MEDS: CEFTRIAXONE 2 GM in DEXTROSE 5%-WATER 100 ML IVPB SCH (09:05)
[2022-10-18] MEDS: THIAMINE HCL 200 MG/2 ML VIAL IVPB SCH (10:39)
[2022-10-18] MEDS: DIVALPROEX NA *ER* EXTEND REL 500 MG TABLET.SA (FP) PO SCH ×2 (10:40→22:36)
[2022-10-18] MEDS: POLYETHYLENE GLYCOL (HEALTHYLAX) 3350 17 GM PACKET PO SCH (10:40)
[2022-10-18] MEDS: BUDESONIDE/FORMETEROL FUMARATE 160/4.5 mcg INHALER IH SCH ×2 (10:40→22:37)
[2022-10-18 11:54] LABS: BASO % 0.4 % (0-2.0); EOS % 7.1 % (0-4.5); HEMATOCRIT 25.3 % (32.4-45.2); HEMOGLOBIN 8.4 GM/dL (10.7-15.3); LYMPH % 19.7 % (8-40); MCH 28.6 pg (25.7-33.7); MCHC 33.2 g/dl (32.0-36.0); MEAN CELL VOLUME 86.1 fl (80-96); MEAN PLT VOLUME 8.4 fl (7.5-11.1); MONO % 8.8 % (3.8-10.2); PLATELET COUNT 188 10^3/uL (134-434); RBC 2.94 M/mm3 (3.60-5.2); RDW 16.1 % (11.6-15.6); WHITE BLOOD COUNT 9.2 K/mm3 (4.0-10.0)
[2022-10-18 12:14] LABS: CHLORIDE 101 mmol/L (98-107); SODIUM 140 mmol/L (136-145)
[2022-10-18 12:15] LABS: ANION GAP 1 MMOL/L (8-16); BLOOD UREA NITROGEN 3.2 mg/dL (7-18); CO2 38 mmol/L (21-32); GLUCOSE,RANDOM 89 mg/dL (74-106); MAGNESIUM 1.8 mg/dL (1.8-2.4)
[2022-10-18 12:18] LABS: CREATININE < 0.2 mg/dL (0.55-1.3); PHOSPHOROUS 3.1 mg/dL (2.5-4.9)
[2022-10-18] MEDS: ATORVASTATIN CA 40 MG TABLET (FP) PO SCH (22:37)
[2022-10-18] MEDS: PANTOPRAZOLE 40 MG TABLET PO SCH (22:37)
[2022-10-19] MEDS: GABAPENTIN 300 MG CAPSULE PO SCH ×3 (00:45→17:40)
[2022-10-19] MEDS: INSULIN SLIDING SCALE (NOVOLOG) 1 VIAL SQ SCH ×4 (00:45→17:40)
[2022-10-19] MEDS ORDERED: INSULIN SLIDING SCALE (NOVOLOG) 1 VIAL SQ ONE (06:56)
[2022-10-19] MEDS: ALBUTEROL SO4 2.5/IPRATROPIUM 0.5 INH SOL 3 ML VIAL.NEB. NEB SCH ×3 (07:40→21:19)
[2022-10-19] MEDS: POLYETHYLENE GLYCOL (HEALTHYLAX) 3350 17 GM PACKET PO SCH (09:23)
[2022-10-19] MEDS: PANTOPRAZOLE 40 MG TABLET PO SCH ×2 (09:23→22:47)
[2022-10-19] MEDS: CEFTRIAXONE 2 GM in DEXTROSE 5%-WATER 100 ML IVPB SCH (09:23)
[2022-10-19] MEDS: THIAMINE HCL 200 MG/2 ML VIAL IVPB SCH (09:24)
[2022-10-19] MEDS: BUDESONIDE/FORMETEROL FUMARATE 160/4.5 mcg INHALER IH SCH ×2 (10:11→22:55)
[2022-10-19] MEDS ORDERED: FUROSEMIDE 40 MG TABLET (FP) PO ONE (10:42)
[2022-10-19] MEDS: DIVALPROEX NA *ER* EXTEND REL 500 MG TABLET.SA (FP) PO SCH ×2 (11:25→23:15)
[2022-10-19 11:58] LABS: BASO % 0.5 % (0-2.0); HEMATOCRIT 25.8 % (32.4-45.2); HEMOGLOBIN 8.7 GM/dL (10.7-15.3); MCH 28.9 pg (25.7-33.7); MCHC 33.9 g/dl (32.0-36.0); MEAN CELL VOLUME 85.3 fl (80-96); MEAN PLT VOLUME 8.5 fl (7.5-11.1); MONO % 8.2 % (3.8-10.2); NEUT % 64.3 % (42.8-82.8); PLATELET COUNT 206 10^3/uL (134-434); RBC 3.02 M/mm3 (3.60-5.2); RDW 15.6 % (11.6-15.6); WHITE BLOOD COUNT 9.3 K/mm3 (4.0-10.0)
[2022-10-19 12:27] LABS: ARTERIAL BLD GAS O2 SATURATION 58.9 % (95-98); ARTERIAL BLOOD GAS BASE EXCESS 10.9 mmol/L (-2-2); ARTERIAL BLOOD GAS pH 7.372 (7.350-7.450)
[2022-10-19 12:31] LABS: ALLENS TEST POSITIVE
[2022-10-19 12:34] LABS: ARTERIAL BLOOD GAS PO2 32.8 mmHg (80-100)
[2022-10-19 13:04] LABS: CHLORIDE 100 mmol/L (98-107); SODIUM 141 mmol/L (136-145)
[2022-10-19 13:07] LABS: ALBUMIN 1.8 g/dl (3.4-5.0); ANION GAP 1 MMOL/L (8-16); CALCIUM 8.3 mg/dL (8.5-10.1); CO2 40 mmol/L (21-32); GLUCOSE,RANDOM 81 mg/dL (74-106); MAGNESIUM 1.7 mg/dL (1.8-2.4)
[2022-10-19 13:10] LABS: CREATININE < 0.2 mg/dL (0.55-1.3); SGOT/AST 13 U/L (15-37); SGPT/ALT 21 U/L (13-61)
[2022-10-19 13:11] LABS: BILIRUBIN,TOTAL 0.2 mg/dL (0.2-1); TOT PROT 4.6 g/dl (6.4-8.2)
[2022-10-19 13:13] LABS: ALK PHOS 69 U/L (45-117)
[2022-10-19 13:25] LABS: BLOOD UREA NITROGEN 2.3 mg/dL (7-18)
[2022-10-19] MEDS: ATORVASTATIN CA 40 MG TABLET (FP) PO SCH (22:47)
[2022-10-20] MEDS: GABAPENTIN 300 MG CAPSULE PO SCH ×3 (00:35→15:52)
[2022-10-20] MEDS: INSULIN SLIDING SCALE (NOVOLOG) 1 VIAL SQ SCH ×4 (00:36→17:10)
[2022-10-20 05:16] LABS: VENOUS O2 SATURATION 87.1 % (70-80); VENOUS PH 7.376 (7.310-7.410)
[2022-10-20] MEDS: ALBUTEROL SO4 2.5/IPRATROPIUM 0.5 INH SOL 3 ML VIAL.NEB. NEB SCH ×3 (08:00→20:22)
[2022-10-20 08:17] LABS: ALBUMIN 1.9 g/dl (3.4-5.0); CALCIUM 8.4 mg/dL (8.5-10.1)
[2022-10-20 08:21] LABS: CREATININE 0.2 mg/dL (0.55-1.3)
[2022-10-20 08:22] LABS: BILIRUBIN,TOTAL 0.5 mg/dL (0.2-1); TOT PROT 4.8 g/dl (6.4-8.2)
[2022-10-20] MEDS: POLYETHYLENE GLYCOL (HEALTHYLAX) 3350 17 GM PACKET PO SCH (09:00)
[2022-10-20] MEDS: CEFTRIAXONE 2 GM in DEXTROSE 5%-WATER 100 ML IVPB SCH (09:00)
[2022-10-20] MEDS: THIAMINE HCL 200 MG/2 ML VIAL IVPB SCH (09:00)
[2022-10-20] MEDS: PANTOPRAZOLE 40 MG TABLET PO SCH ×2 (09:00→21:17)
[2022-10-20] MEDS: BUDESONIDE/FORMETEROL FUMARATE 160/4.5 mcg INHALER IH SCH ×2 (09:01→21:17)
[2022-10-20] MEDS: DIVALPROEX NA *ER* EXTEND REL 500 MG TABLET.SA (FP) PO SCH (10:08)
[2022-10-20] MEDS: FUROSEMIDE 20 MG TABLET (FP) PO SCH (11:42)
[2022-10-20] MEDS: VALPROATE SODIUM 250 MG/5 ML UNIT DOSE CUP PO SCH ×2 (14:02→21:17)
[2022-10-20] MEDS ORDERED: ACETAMINOPHEN 325 MG TABLET (FP) PO PRN (14:26)
[2022-10-20] MEDS ORDERED: ACETAMINOPHEN 650 MG/20.3 ML ORAL SOLUTION (CUPS) PO PRN (14:27)
[2022-10-20] MEDS: ATORVASTATIN CA 40 MG TABLET (FP) PO SCH (21:17)
[2022-10-20] MEDS ORDERED: DIVALPROEX NA *ER* EXTEND REL 500 MG TABLET.SA (FP) PO SCH (22:00)
[2022-10-21] MEDS: INSULIN SLIDING SCALE (NOVOLOG) 1 VIAL SQ SCH ×5 (00:20→23:52)
[2022-10-21] MEDS: GABAPENTIN 300 MG CAPSULE PO SCH ×4 (00:20→23:48)
[2022-10-21] MEDS: ALBUTEROL SO4 2.5/IPRATROPIUM 0.5 INH SOL 3 ML VIAL.NEB. NEB SCH ×3 (07:30→20:15)
[2022-10-21] MEDS: POLYETHYLENE GLYCOL (HEALTHYLAX) 3350 17 GM PACKET PO SCH (09:44)
[2022-10-21] MEDS: THIAMINE HCL 200 MG/2 ML VIAL IVPB SCH (09:44)
[2022-10-21] MEDS: PANTOPRAZOLE 40 MG TABLET PO SCH ×2 (09:44→21:57)
[2022-10-21] MEDS: FUROSEMIDE 20 MG TABLET (FP) PO SCH (09:44)
[2022-10-21] MEDS: BUDESONIDE/FORMETEROL FUMARATE 160/4.5 mcg INHALER IH SCH ×2 (09:45→21:57)
[2022-10-21] MEDS: VALPROATE SODIUM 250 MG/5 ML UNIT DOSE CUP PO SCH ×2 (09:45→21:57)
[2022-10-21 13:11] LABS: BASO % 0.5 % (0-2.0); EOS % 3.7 % (0-4.5); HEMATOCRIT 27.1 % (32.4-45.2); HEMOGLOBIN 8.9 GM/dL (10.7-15.3); LYMPH % 22.9 % (8-40); MCH 27.9 pg (25.7-33.7); MCHC 32.7 g/dl (32.0-36.0); MEAN CELL VOLUME 85.4 fl (80-96); MEAN PLT VOLUME 7.9 fl (7.5-11.1); MONO % 6.9 % (3.8-10.2); PLATELET COUNT 220 10^3/uL (134-434); RBC 3.17 M/mm3 (3.60-5.2); RDW 15.6 % (11.6-15.6); WHITE BLOOD COUNT 7.7 K/mm3 (4.0-10.0)
[2022-10-21 13:26] LABS: BLOOD UREA NITROGEN 4.2 mg/dL (7-18); CALCIUM 8.7 mg/dL (8.5-10.1); MAGNESIUM 1.7 mg/dL (1.8-2.4)
[2022-10-21 13:29] LABS: CREATININE 0.2 mg/dL (0.55-1.3); PHOSPHOROUS 2.8 mg/dL (2.5-4.9)
[2022-10-21 13:32] LABS: BILIRUBIN,TOTAL 0.2 mg/dL (0.2-1)
[2022-10-21] MEDS: ATORVASTATIN CA 40 MG TABLET (FP) PO SCH (21:57)
[2022-10-22] MEDS ORDERED: ALBUTEROL SO4 2.5/IPRATROPIUM 0.5 INH SOL 3 ML VIAL.NEB. NEB PRN (00:05)
[2022-10-22] MEDS ORDERED: DEXTROSE 50%-WATER 25 GM/50 ML DISP.SYRIN IVPUSH PRN (00:05)
[2022-10-22] MEDS ORDERED: ONDANSETRON 4 MG/2 ML VIAL IVPUSH PRN (00:05)
[2022-10-22] MEDS: INSULIN SLIDING SCALE (NOVOLOG) 1 VIAL SQ SCH ×4 (05:16→23:10)
[2022-10-22] MEDS: GABAPENTIN 300 MG CAPSULE PO SCH ×3 (08:29→23:10)
[2022-10-22] MEDS: ALBUTEROL SO4 2.5/IPRATROPIUM 0.5 INH SOL 3 ML VIAL.NEB. NEB SCH ×3 (09:15→21:06)
[2022-10-22] MEDS: VALPROATE SODIUM 250 MG/5 ML UNIT DOSE CUP PO SCH ×2 (10:20→21:08)
[2022-10-22] MEDS: THIAMINE HCL 200 MG/2 ML VIAL IVPB SCH (10:21)
[2022-10-22] MEDS: FUROSEMIDE 20 MG TABLET (FP) PO SCH (10:21)
[2022-10-22] MEDS: POLYETHYLENE GLYCOL (HEALTHYLAX) 3350 17 GM PACKET PO SCH (10:21)
[2022-10-22] MEDS: PANTOPRAZOLE 40 MG TABLET PO SCH ×2 (10:21→21:08)
[2022-10-22] MEDS: BUDESONIDE/FORMETEROL FUMARATE 160/4.5 mcg INHALER IH SCH ×2 (11:11→21:08)
[2022-10-22] MEDS ORDERED: MAGNESIUM OXIDE 400 MG TABLET (FP) PO ONE (12:30)
[2022-10-22] MEDS: ATORVASTATIN CA 40 MG TABLET (FP) PO SCH (21:08)
[2022-10-23] MEDS: INSULIN SLIDING SCALE (NOVOLOG) 1 VIAL SQ SCH ×3 (05:19→17:38)
[2022-10-23] MEDS: ALBUTEROL SO4 2.5/IPRATROPIUM 0.5 INH SOL 3 ML VIAL.NEB. NEB SCH ×3 (08:10→20:21)
[2022-10-23] MEDS: GABAPENTIN 300 MG CAPSULE PO SCH ×2 (08:24→16:19)
[2022-10-23] MEDS: PANTOPRAZOLE 40 MG TABLET PO SCH ×2 (09:40→21:34)
[2022-10-23] MEDS: THIAMINE HCL 200 MG/2 ML VIAL IVPB SCH (09:40)
[2022-10-23] MEDS: FUROSEMIDE 20 MG TABLET (FP) PO SCH (09:40)
[2022-10-23] MEDS: POLYETHYLENE GLYCOL (HEALTHYLAX) 3350 17 GM PACKET PO SCH (09:40)
[2022-10-23] MEDS: VALPROATE SODIUM 250 MG/5 ML UNIT DOSE CUP PO SCH ×2 (09:41→21:34)
[2022-10-23] MEDS: BUDESONIDE/FORMETEROL FUMARATE 160/4.5 mcg INHALER IH SCH ×2 (09:47→22:56)
[2022-10-23] MEDS: ATORVASTATIN CA 40 MG TABLET (FP) PO SCH (21:34)
[2022-10-24] MEDS: GABAPENTIN 300 MG CAPSULE PO SCH ×3 (00:48→17:15)
[2022-10-24] MEDS: INSULIN SLIDING SCALE (NOVOLOG) 1 VIAL SQ SCH ×4 (00:56→17:12)
[2022-10-24] MEDS: ALBUTEROL SO4 2.5/IPRATROPIUM 0.5 INH SOL 3 ML VIAL.NEB. NEB SCH ×3 (07:45→19:55)
[2022-10-24] MEDS: THIAMINE HCL 200 MG/2 ML VIAL IVPB SCH (10:21)
[2022-10-24] MEDS: PANTOPRAZOLE 40 MG TABLET PO SCH ×2 (10:22→21:22)
[2022-10-24] MEDS: FUROSEMIDE 20 MG TABLET (FP) PO SCH (10:22)
[2022-10-24] MEDS: POLYETHYLENE GLYCOL (HEALTHYLAX) 3350 17 GM PACKET PO SCH (10:22)
[2022-10-24] MEDS: VALPROATE SODIUM 250 MG/5 ML UNIT DOSE CUP PO SCH ×2 (10:22→21:22)
[2022-10-24] MEDS: BUDESONIDE/FORMETEROL FUMARATE 160/4.5 mcg INHALER IH SCH ×2 (10:24→21:38)
[2022-10-24] MEDS: ATORVASTATIN CA 40 MG TABLET (FP) PO SCH (21:22)
[2022-10-25] MEDS: GABAPENTIN 300 MG CAPSULE PO SCH ×3 (00:17→16:55)
[2022-10-25] MEDS: INSULIN SLIDING SCALE (NOVOLOG) 1 VIAL SQ SCH ×4 (00:24→17:43)
[2022-10-25 04:15] VITALS: RESP 18
[2022-10-25] MEDS: ALBUTEROL SO4 2.5/IPRATROPIUM 0.5 INH SOL 3 ML VIAL.NEB. NEB SCH ×2 (08:00→14:00)
[2022-10-25] MEDS: POLYETHYLENE GLYCOL (HEALTHYLAX) 3350 17 GM PACKET PO SCH (09:09)
[2022-10-25] MEDS: PANTOPRAZOLE 40 MG TABLET PO SCH (09:11)
[2022-10-25] MEDS: THIAMINE HCL 200 MG/2 ML VIAL IVPB SCH (09:11)
[2022-10-25] MEDS: FUROSEMIDE 20 MG TABLET (FP) PO SCH (09:11)
[2022-10-25] MEDS: VALPROATE SODIUM 250 MG/5 ML UNIT DOSE CUP PO SCH (09:17)
[2022-10-25] MEDS: BUDESONIDE/FORMETEROL FUMARATE 160/4.5 mcg INHALER IH SCH (09:48)
[2022-10-25 18:07] VITALS: BP 122/51; PULSE 65; TEMP 99
== END 2022-10-25 20:13 | DRG 208 ==
LOC: JER 10:57 → JERBED 13:28 → JICU 17:05 → J4S 10-06 17:39 → JICU 10-10 00:05 → J4S 10-14 21:14 → J6S 10-22 00:06
PROVIDERS: ADMIT Internal Medicine Pulmonary Disease
PROC: 5A1945Z Respiratory Ventilation, 24-96 Consecutive Hours (ICD-10-PCS; principal; 2022-10-01)
PROC: 0BH17EZ Insertion of Endotracheal Airway into Trachea, Via Natural or Artificial Opening (ICD-10-PCS; 2022-10-01)
PROC: 0DH67UZ Insertion of Feeding Device into Stomach, Via Natural or Artificial Opening (ICD-10-PCS; 2022-10-01)
PROC: 4A133B1 Monitoring of Arterial Pressure, Peripheral, Percutaneous Approach (ICD-10-PCS; 2022-10-01)
PROC: 4A133J1 Monitoring of Arterial Pulse, Peripheral, Percutaneous Approach (ICD-10-PCS; 2022-10-01)
PROC: 05HM33Z Insertion of Infusion Device into Right Internal Jugular Vein, Percutaneous Approach (ICD-10-PCS; 2022-10-02)
PROC: B543ZZA Ultrasonography of Right Jugular Veins, Guidance (ICD-10-PCS; 2022-10-02)
PROC: 30233N1 Transfusion of Nonautologous Red Blood Cells into Peripheral Vein, Percutaneous Approach (ICD-10-PCS; 2022-10-10)
PROC: 05HM33Z Insertion of Infusion Device into Right Internal Jugular Vein, Percutaneous Approach (ICD-10-PCS; 2022-10-10)
PROC: B543ZZA Ultrasonography of Right Jugular Veins, Guidance (ICD-10-PCS; 2022-10-10)
DX: J96.22 Acute and chronic respiratory failure with hypercapnia (principal); G93.41 Metabolic encephalopathy; I21.4 Non-ST elevation (NSTEMI) myocardial infarction; J18.9 Pneumonia, unspecified organism; R57.8 Other shock; J44.1 Chronic obstructive pulmonary disease with (acute) exacerbation; N39.0 Urinary tract infection, site not specified; J98.11 Atelectasis; K92.2 Gastrointestinal hemorrhage, unspecified; E87.1 Hypo-osmolality and hyponatremia; E87.20 Acidosis, unspecified; I50.30 Unspecified diastolic (congestive) heart failure; I31.39 Other pericardial effusion (noninflammatory); J90 Pleural effusion, not elsewhere classified; E87.0 Hyperosmolality and hypernatremia; E87.3 Alkalosis; E87.4 Mixed disorder of acid-base balance; D62 Acute posthemorrhagic anemia; Z16.12 Extended spectrum beta lactamase (ESBL) resistance; J96.21 Acute and chronic respiratory failure with hypoxia; I11.0 Hypertensive heart disease with heart failure; E66.9 Obesity, unspecified; I25.10 Atherosclerotic heart disease of native coronary artery without angina pectoris; E78.5 Hyperlipidemia, unspecified; G40.909 Epilepsy, unspecified, not intractable, without status epilepticus; N18.9 Chronic kidney disease, unspecified; E87.6 Hypokalemia; R33.9 Retention of urine, unspecified; B96.20 Unspecified Escherichia coli [E. coli] as the cause of diseases classified elsewhere; B96.5 Pseudomonas (aeruginosa) (mallei) (pseudomallei) as the cause of diseases classified elsewhere; E86.0 Dehydration
CPT/HCPCS: 0241U-QW; 36415; 36430; 36600; 70450-TC; 71045-TC-FY; 71275-TC; 80048; 80053; 80164; 81003; 82550; 82803; 82962; 83010; 83605; 83735; 83880; 84100; 84484; 85025; 85027; 85610; 85730; 86850; 86900; 86901; 86922; 86965; 87040; 87070; 87077; 87086; 87186; 87205; 87340; 87517; 87899; 93005; 93010; 93306-TC; 94002; 94640; 94660; 95816; 97161-GP; 99291; 99292; C9803-CS; J0475; J1644; J2597; P9019; P9058; Q9967; U0003; U0005

== ENCOUNTER 2022-11-15 01:24 | Inpatient (IN) | payer OTHER ==
[2022-11-15] MEDS ORDERED: VANCOMYCIN 1 GM in D5W (PRE-DOCKED) 1,000 MG/250 ML (RESTRICTED TO ID ONLY IVPB ONE (01:47)
[2022-11-15] MEDS ORDERED: CEFEPIME HCL/D5W 2 GM/50 ML BAG IVPB ONE (01:47)
[2022-11-15] MEDS ORDERED: CEFEPIME 2 GM/100 ML BAG IVPB ONE (03:11)
[2022-11-15 03:41] LABS: VENOUS BASE EXCESS 5.2 mmol/L (-2-2); VENOUS O2 SATURATION 71.9 % (70-80); VENOUS PCO2 50.9 mmHg (38-52); VENOUS PH 7.403 (7.310-7.410)
[2022-11-15 03:48] LABS: BASO % 0.4 % (0-2.0); EOS % 0.4 % (0-4.5); HEMATOCRIT 33.2 % (32.4-45.2); MCH 27.7 pg (25.7-33.7); MCHC 33.3 g/dl (32.0-36.0); MEAN CELL VOLUME 83.1 fl (80-96); MEAN PLT VOLUME 7.9 fl (7.5-11.1); MONO % 8.2 % (3.8-10.2); PLATELET COUNT 377 10^3/uL (134-434); RBC 3.99 M/mm3 (3.60-5.2); RDW 17.1 % (11.6-15.6); WHITE BLOOD COUNT 10.7 K/mm3 (4.0-10.0)
[2022-11-15 04:00] LABS: INR 1.16 (0.83-1.09); PROTHROMBIN TIME (PATIENT) 13.4 SEC (9.7-13.0)
[2022-11-15 04:03] LABS: ACTIVATED PTT 39.5 SECONDS (25.2-36.5)
[2022-11-15 04:06] LABS: CHLORIDE 96 mmol/L (98-107); POTASSIUM 3.8 mmol/L (3.5-5.1); SODIUM 137 mmol/L (136-145)
[2022-11-15] MEDS ORDERED: morphine CARPU-JECT 2 MG/1 ML DISP.SYRIN IVPUSH ONE (04:06)
[2022-11-15 04:08] LABS: CALCIUM 9.2 mg/dL (8.5-10.1)
[2022-11-15 04:09] LABS: ALBUMIN 2.5 g/dl (3.4-5.0); ANION GAP 5 MMOL/L (8-16); BLOOD UREA NITROGEN 7.8 mg/dL (7-18); CO2 36 mmol/L (21-32); GLUCOSE,RANDOM 80 mg/dL (74-106)
[2022-11-15 04:12] LABS: CREATININE 0.3 mg/dL (0.55-1.3); SGOT/AST 10 U/L (15-37); SGPT/ALT 9 U/L (13-61)
[2022-11-15 04:13] LABS: BILIRUBIN,TOTAL 0.2 mg/dL (0.2-1)
[2022-11-15 04:14] LABS: TOT PROT 6.6 g/dl (6.4-8.2)
[2022-11-15 04:15] LABS: ALK PHOS 94 U/L (45-117)
[2022-11-15 05:11] LABS: EPI CELLS 6 /uL (0-25.1); HYALINE CASTS 48 /uL (0-3.1); URINE APPEARANCE CLOUDY; URINE BACTERIA >9,000 /uL (0-1359); URINE BILIRUBIN NEGATIVE (NEGATIVE); URINE COLOR DK YELLOW; URINE GLUCOSE (UA) NEGATIVE (NEGATIVE); URINE KETONE TRACE (NEGATIVE); URINE LEUK ESTERASE 2+ (NEGATIVE); URINE NITRITE POSITIVE (NEGATIVE); URINE PROTEIN TRACE (NEGATIVE); URINE RBC 10 /uL (0-23.9); URINE UROBILINOGEN 0.2 mg/dL (0.2-1.0); URINE WBC 737 /uL (0-25.8)
[2022-11-15] MEDS ORDERED: VANCOMYCIN/WATER FOR INJ (PEG) 1,000 MG/200 ML BAG IVPB ONE (05:34)
[2022-11-15] MEDS ORDERED: morphine CARPU-JECT 4 MG/1 ML DISP.SYRIN IVPUSH ONE ×2 (06:18→10:59)
[2022-11-15] MEDS ORDERED: morphine SULFATE 4 MG/ML VIAL ONE (07:27)
[2022-11-15] MEDS ORDERED: MEROPENEM 1 GM VIAL (RESTRICTED TO ID) IVPB ONE ×2 (10:58→17:14)
[2022-11-15] MEDS: MEROPENEM 1 GM in DEXTROSE 5%-WATER 100 ML IVPB SCH ×2 (11:04→17:23)
[2022-11-15] MEDS ORDERED: ACETAMINOPHEN 1000 MG/100 ML BAG IVPB PRN (12:50)
[2022-11-15] MEDS: LACTATED RINGERS SOLUTION 1,000 ML/1,000 ML INFUS.BAG IV SCH (14:08)
[2022-11-15] MEDS ORDERED: PATIENT'S OWN MEDICATION (NON-FORMULARY) (Acetaminophen [8 Hour Pain Relief] 650 MG Tablet PO PRN (14:11)
[2022-11-15] MEDS ORDERED: PATIENT'S OWN MEDICATION (NON-FORMULARY) (Ipratropium Bromide [Atrovent Hfa] 12.9 GM Hfa.A IH SCH (14:15)
[2022-11-15] MEDS ORDERED: ROFLUMILAST 500 MCG TABLET PO SCH (14:15)
[2022-11-15] MEDS ORDERED: GABAPENTIN 300 MG CAPSULE PO SCH (14:15)
[2022-11-15] MEDS ORDERED: PATIENT'S OWN MEDICATION (NON-FORMULARY) (Fluticasone Propionate [Flovent Diskus] 50 MCG B IH SCH (14:15)
[2022-11-15] MEDS ORDERED: POLYETHYLENE GLYCOL 3350 255 GM BTL PO SCH (14:15)
[2022-11-15] MEDS ORDERED: DALBAVANCIN HCL 500 MG VIAL (RESTRICTED TO ID ONLY) IVPB ONE (14:29)
[2022-11-15] MEDS: LIDOCAINE 5% TOPICAL PATCH TP SCH (14:50)
[2022-11-15] MEDS: LOSARTAN POTASSIUM 25 MG TABLET PO SCH (14:50)
[2022-11-15] MEDS: FOLIC ACID 1 MG TABLET (FP) PO SCH (14:50)
[2022-11-15] MEDS ORDERED: MOMETASONE FUROATE 220 MCG/IH INHALER IH SCH ×2 (15:39→22:08)
[2022-11-15] MEDS: IPRATROPIUM BR 0.02% 0.5 MG/2.5 ML VIAL.NEB. NEB SCH ×2 (16:36→20:20)
[2022-11-15] MEDS ORDERED: morphine CARPU-JECT 2 MG/1 ML DISP.SYRIN IVPUSH PRN (17:00)
[2022-11-15] MEDS: POLYETHYLENE GLYCOL (HEALTHYLAX) 3350 17 GM PACKET PO SCH (21:52)
[2022-11-15] MEDS: LACTULOSE 20 GM/30 ML UDC (FOR ORAL USE ONLY) PO SCH (21:52)
[2022-11-15] MEDS: MAGNESIUM HYDROX 2400MG/30ML ORAL SUSPENSION 30 ML CUP PO SCH (21:53)
[2022-11-15] MEDS: SOLIFENACIN SUCCINATE 5 MG TAB PO SCH (21:53)
[2022-11-15] MEDS: ASCORBIC ACID 500 MG TABLET (FP) PO SCH (21:53)
[2022-11-15] MEDS: PANTOPRAZOLE 40 MG TABLET PO SCH (21:53)
[2022-11-15] MEDS: SENNOSIDES 8.6MG TABLET (FP) PO SCH (21:53)
[2022-11-15] MEDS: ATORVASTATIN CA 40 MG TABLET (FP) PO SCH (21:54)
[2022-11-15] MEDS: GABAPENTIN 300 MG CAPSULE PO SCH (21:55)
[2022-11-15] MEDS: HYDROmorphone HCL 2 MG TABLET PO SCH (21:55)
[2022-11-15] MEDS: LIDOCAINE PATCH REMOVAL MC SCH (21:56)
[2022-11-15] MEDS ORDERED: PATIENT'S OWN MEDICATION (NON-FORMULARY) (Cran/Vitc/Mannose/Fos/Bromeln [Uti-Stat Liquid] PO SCH (22:00)
[2022-11-15] MEDS ORDERED: OLANZAPINE 2.5 MG, OLANZAPINE 5 MG PO SCH (22:00)
[2022-11-15] MEDS ORDERED: OLANZapine 7.5 MG TABLET PO SCH (22:00)
[2022-11-15] MEDS ORDERED: DIVALPROEX NA *ER* EXTEND REL 500 MG TABLET.SA (FP) PO SCH (22:00)
[2022-11-15 23:23] VITALS: BMI 28.6
[2022-11-16] MEDS: MEROPENEM 1 GM in DEXTROSE 5%-WATER 100 ML IVPB SCH ×3 (01:27→17:10)
[2022-11-16] MEDS: GABAPENTIN 300 MG CAPSULE PO SCH ×3 (05:20→21:30)
[2022-11-16] MEDS: POLYETHYLENE GLYCOL (HEALTHYLAX) 3350 17 GM PACKET PO SCH ×3 (05:20→21:30)
[2022-11-16] MEDS: IPRATROPIUM BR 0.02% 0.5 MG/2.5 ML VIAL.NEB. NEB SCH ×4 (08:10→20:46)
[2022-11-16] MEDS: MAGNESIUM HYDROX 2400MG/30ML ORAL SUSPENSION 30 ML CUP PO SCH ×2 (09:49→21:30)
[2022-11-16] MEDS: LACTULOSE 20 GM/30 ML UDC (FOR ORAL USE ONLY) PO SCH ×2 (09:49→22:30)
[2022-11-16] MEDS: LIDOCAINE 5% TOPICAL PATCH TP SCH (09:49)
[2022-11-16] MEDS: SENNOSIDES 8.6MG TABLET (FP) PO SCH ×2 (09:50→21:30)
[2022-11-16] MEDS: LOSARTAN POTASSIUM 25 MG TABLET PO SCH (09:50)
[2022-11-16] MEDS: FOLIC ACID 1 MG TABLET (FP) PO SCH (09:50)
[2022-11-16] MEDS: PANTOPRAZOLE 40 MG TABLET PO SCH (09:50)
[2022-11-16] MEDS: HYDROmorphone HCL 2 MG TABLET PO SCH ×2 (09:51→21:30)
[2022-11-16] MEDS: ASCORBIC ACID 500 MG TABLET (FP) PO SCH ×2 (11:01→21:31)
[2022-11-16] MEDS: VALPROATE SODIUM 250 MG/5 ML UNIT DOSE CUP PO SCH ×2 (11:02→21:30)
[2022-11-16] MEDS: LACTATED RINGERS SOLUTION 1,000 ML/1,000 ML INFUS.BAG IV SCH ×2 (13:16→17:37)
[2022-11-16] MEDS ORDERED: ACETAMINOPHEN 325 MG TABLET (FP) PO PRN (16:07)
[2022-11-16 18:40] LABS: BASO % 0.7 % (0-2.0); EOS % 0.1 % (0-4.5); HEMATOCRIT 26.9 % (32.4-45.2); HEMOGLOBIN 9.1 GM/dL (10.7-15.3); LYMPH % 14.4 % (8-40); MCHC 33.9 g/dl (32.0-36.0); MEAN CELL VOLUME 82.8 fl (80-96); MEAN PLT VOLUME 8.8 fl (7.5-11.1); MONO % 14.3 % (3.8-10.2); NEUT % 70.5 % (42.8-82.8); PLATELET COUNT 284 10^3/uL (134-434); RBC 3.25 M/mm3 (3.60-5.2); RDW 16.8 % (11.6-15.6); WHITE BLOOD COUNT 9.6 K/mm3 (4.0-10.0)
[2022-11-16 19:14] LABS: POTASSIUM 3.8 mmol/L (3.5-5.1)
[2022-11-16 19:20] LABS: ERYTHROCYTE SEDIMENTATION RATE 82 mm/hr (0-30)
[2022-11-16 19:22] LABS: PHOSPHOROUS 2.2 mg/dL (2.5-4.9)
[2022-11-16 19:23] LABS: BILIRUBIN,TOTAL 0.2 mg/dL (0.2-1); TOT PROT 5.4 g/dl (6.4-8.2)
[2022-11-16 19:59] LABS: CALCIUM 9.1 mg/dL (8.5-10.1); MAGNESIUM 1.7 mg/dL (1.8-2.4)
[2022-11-16 20:02] LABS: CREATININE 0.5 mg/dL (0.55-1.3)
[2022-11-16 20:23] LABS: BLOOD UREA NITROGEN 10.8 mg/dL (7-18)
[2022-11-16] MEDS: SOLIFENACIN SUCCINATE 5 MG TAB PO SCH (21:30)
[2022-11-16] MEDS: ATORVASTATIN CA 40 MG TABLET (FP) PO SCH (21:30)
[2022-11-16] MEDS: LIDOCAINE PATCH REMOVAL MC SCH (21:34)
[2022-11-16] MEDS ORDERED: OLANZapine 2.5 MG TABLET PO SCH (22:00)
[2022-11-17] MEDS: MEROPENEM 1 GM in DEXTROSE 5%-WATER 100 ML IVPB SCH ×3 (01:05→17:26)
[2022-11-17] MEDS: LACTATED RINGERS SOLUTION 1,000 ML/1,000 ML INFUS.BAG IV SCH ×3 (05:10→16:45)
[2022-11-17] MEDS: GABAPENTIN 300 MG CAPSULE PO SCH ×3 (05:10→21:24)
[2022-11-17] MEDS: POLYETHYLENE GLYCOL (HEALTHYLAX) 3350 17 GM PACKET PO SCH ×3 (05:10→21:27)
[2022-11-17] MEDS: IPRATROPIUM BR 0.02% 0.5 MG/2.5 ML VIAL.NEB. NEB SCH ×3 (08:55→20:39)
[2022-11-17 09:55] LABS: POTASSIUM 4.3 mmol/L (3.5-5.1)
[2022-11-17] MEDS ORDERED: PANTOPRAZOLE 40 MG TABLET PO SCH (10:00)
[2022-11-17 10:03] LABS: BASO % 0.8 % (0-2.0); EOS % 0.1 % (0-4.5); HEMATOCRIT 28.4 % (32.4-45.2); HEMOGLOBIN 9.6 GM/dL (10.7-15.3); LYMPH % 12.8 % (8-40); MCH 28.1 pg (25.7-33.7); MCHC 33.9 g/dl (32.0-36.0); MEAN CELL VOLUME 82.8 fl (80-96); MEAN PLT VOLUME 8.8 fl (7.5-11.1); MONO % 16.9 % (3.8-10.2); NEUT % 69.4 % (42.8-82.8); PLATELET COUNT 262 10^3/uL (134-434); RBC 3.43 M/mm3 (3.60-5.2); RDW 16.4 % (11.6-15.6); WHITE BLOOD COUNT 8.5 K/mm3 (4.0-10.0)
[2022-11-17 10:04] LABS: CALCIUM 8.7 mg/dL (8.5-10.1)
[2022-11-17] MEDS: HYDROmorphone HCL 2 MG TABLET PO SCH ×2 (10:04→21:25)
[2022-11-17] MEDS: FOLIC ACID 1 MG TABLET (FP) PO SCH (10:04)
[2022-11-17] MEDS: ASCORBIC ACID 500 MG TABLET (FP) PO SCH ×2 (10:04→21:24)
[2022-11-17] MEDS: LOSARTAN POTASSIUM 25 MG TABLET PO SCH (10:04)
[2022-11-17 10:05] LABS: BLOOD UREA NITROGEN 6.9 mg/dL (7-18)
[2022-11-17] MEDS: MAGNESIUM HYDROX 2400MG/30ML ORAL SUSPENSION 30 ML CUP PO SCH ×2 (10:05→21:27)
[2022-11-17] MEDS: LACTULOSE 20 GM/30 ML UDC (FOR ORAL USE ONLY) PO SCH ×3 (10:05→21:27)
[2022-11-17] MEDS: LIDOCAINE 5% TOPICAL PATCH TP SCH (10:06)
[2022-11-17 10:07] LABS: CREATININE 0.3 mg/dL (0.55-1.3)
[2022-11-17 10:10] LABS: BILIRUBIN,TOTAL 0.3 mg/dL (0.2-1); TOT PROT 5.4 g/dl (6.4-8.2)
[2022-11-17] MEDS: VALPROATE SODIUM 250 MG/5 ML UNIT DOSE CUP PO SCH ×2 (10:10→22:13)
[2022-11-17] MEDS: SENNOSIDES 8.6MG TABLET (FP) PO SCH ×2 (10:26→21:24)
[2022-11-17] MEDS: FUROSEMIDE 20 MG TABLET (FP) PO SCH (12:04)
[2022-11-17] MEDS: ACETAMINOPHEN 325 MG TABLET (FP) PO PRN (17:26)
[2022-11-17] MEDS: OLANZapine 5 MG TABLET PO SCH (21:24)
[2022-11-17] MEDS: MOMETASONE FUROATE 220 MCG/IH INHALER IH SCH (21:26)
[2022-11-17] MEDS ORDERED: ATORVASTATIN CA 40 MG TABLET (FP) PO SCH (22:00)
[2022-11-17] MEDS ORDERED: PATIENT'S OWN MEDICATION (NON-FORMULARY) (Cran/Vitc/Mannose/Fos/Bromeln [Uti-Stat Liquid] PO SCH (22:00)
[2022-11-17] MEDS: SOLIFENACIN SUCCINATE 5 MG TAB PO SCH (22:13)
[2022-11-17] MEDS: LIDOCAINE PATCH REMOVAL MC SCH (22:13)
[2022-11-18] MEDS: MEROPENEM 1 GM in DEXTROSE 5%-WATER 100 ML IVPB SCH ×3 (01:40→18:27)
[2022-11-18] MEDS: POLYETHYLENE GLYCOL (HEALTHYLAX) 3350 17 GM PACKET PO SCH ×4 (06:04→23:39)
[2022-11-18] MEDS: GABAPENTIN 300 MG CAPSULE PO SCH ×3 (06:04→21:59)
[2022-11-18] MEDS: IPRATROPIUM BR 0.02% 0.5 MG/2.5 ML VIAL.NEB. NEB SCH ×4 (09:05→20:19)
[2022-11-18] MEDS: LACTULOSE 20 GM/30 ML UDC (FOR ORAL USE ONLY) PO SCH ×2 (10:40→22:02)
[2022-11-18] MEDS: MAGNESIUM HYDROX 2400MG/30ML ORAL SUSPENSION 30 ML CUP PO SCH ×2 (10:41→22:04)
[2022-11-18] MEDS: HYDROmorphone HCL 2 MG TABLET PO SCH ×2 (10:42→21:59)
[2022-11-18] MEDS: ASCORBIC ACID 500 MG TABLET (FP) PO SCH ×2 (10:42→22:05)
[2022-11-18] MEDS: LOSARTAN POTASSIUM 25 MG TABLET PO SCH (10:43)
[2022-11-18] MEDS: LIDOCAINE 5% TOPICAL PATCH TP SCH (10:43)
[2022-11-18] MEDS: FUROSEMIDE 20 MG TABLET (FP) PO SCH (10:43)
[2022-11-18] MEDS: PANTOPRAZOLE 40 MG TABLET PO SCH (10:43)
[2022-11-18] MEDS: FOLIC ACID 1 MG TABLET (FP) PO SCH (10:43)
[2022-11-18] MEDS: SENNOSIDES 8.6MG TABLET (FP) PO SCH ×2 (10:43→22:04)
[2022-11-18] MEDS: VALPROATE SODIUM 250 MG/5 ML UNIT DOSE CUP PO SCH ×2 (10:44→22:02)
[2022-11-18] MEDS: guaiFENesin 200 MG/10 ML 10 ML UNIT-DOSE CUPS PO PRN (13:36)
[2022-11-18] MEDS: LACTATED RINGERS SOLUTION 1,000 ML/1,000 ML INFUS.BAG IV SCH (16:35)
[2022-11-18 17:09] LABS: POTASSIUM 4.8 mmol/L (3.5-5.1)
[2022-11-18 17:12] LABS: CALCIUM 8.1 mg/dL (8.5-10.1)
[2022-11-18 17:13] LABS: BLOOD UREA NITROGEN 7.6 mg/dL (7-18); MAGNESIUM 1.7 mg/dL (1.8-2.4)
[2022-11-18 17:15] LABS: CREATININE 0.4 mg/dL (0.55-1.3)
[2022-11-18 17:17] LABS: BILIRUBIN,TOTAL 0.2 mg/dL (0.2-1); TOT PROT 5.5 g/dl (6.4-8.2)
[2022-11-18] MEDS: ATORVASTATIN CA 80 MG TABLET (FP) PO SCH (21:59)
[2022-11-18] MEDS: LIDOCAINE PATCH REMOVAL MC SCH (22:03)
[2022-11-18] MEDS: OLANZapine 5 MG TABLET PO SCH (22:05)
[2022-11-18] MEDS: SOLIFENACIN SUCCINATE 5 MG TAB PO SCH (22:21)
[2022-11-19] MEDS: MEROPENEM 1 GM in DEXTROSE 5%-WATER 100 ML IVPB SCH ×2 (01:11→13:31)
[2022-11-19] MEDS: MOMETASONE FUROATE 220 MCG/IH INHALER IH SCH ×2 (01:37→21:28)
[2022-11-19] MEDS: SENNOSIDES 8.6MG TABLET (FP) PO SCH ×2 (05:55→13:31)
[2022-11-19] MEDS: POLYETHYLENE GLYCOL (HEALTHYLAX) 3350 17 GM PACKET PO SCH ×3 (06:11→21:32)
[2022-11-19] MEDS: ACETAMINOPHEN 325 MG TABLET (FP) PO PRN ×2 (06:12→19:04)
[2022-11-19] MEDS: GABAPENTIN 300 MG CAPSULE PO SCH ×3 (06:12→21:28)
[2022-11-19 07:37] LABS: POTASSIUM 4.8 mmol/L (3.5-5.1)
[2022-11-19 07:46] LABS: ALBUMIN 2.1 g/dl (3.4-5.0); BLOOD UREA NITROGEN 10.8 mg/dL (7-18); CALCIUM 8.6 mg/dL (8.5-10.1)
[2022-11-19 07:47] LABS: MAGNESIUM 1.7 mg/dL (1.8-2.4)
[2022-11-19 07:48] LABS: BILIRUBIN,TOTAL 0.2 mg/dL (0.2-1)
[2022-11-19 07:49] LABS: CREATININE 0.3 mg/dL (0.55-1.3)
[2022-11-19 07:51] LABS: HEMATOCRIT 36.5 % (32.4-45.2); HEMOGLOBIN 11.6 GM/dL (10.7-15.3); MCH 26.6 pg (25.7-33.7); MCHC 31.8 g/dl (32.0-36.0); MEAN CELL VOLUME 83.6 fl (80-96); MEAN PLT VOLUME 8.4 fl (7.5-11.1); PLATELET COUNT 158 10^3/uL (134-434); RBC 4.37 M/mm3 (3.60-5.2); RDW 16.4 % (11.6-15.6)
[2022-11-19 07:52] LABS: WHITE BLOOD COUNT 12.4 K/mm3 (4.0-10.0)
[2022-11-19] MEDS: IPRATROPIUM BR 0.02% 0.5 MG/2.5 ML VIAL.NEB. NEB SCH ×4 (08:12→20:24)
[2022-11-19 09:08] LABS: ANISOCYTOSIS 0; HELMET CELLS 0; HOWELL-JOLLY BODIES 0; MACROCYTOSIS 0; OVALOCYTE 0; ROULEAU 0; SICKELED CELLS 0; TARGET CELLS 0; TEAR DROP CELLS 0; TOXIC GRANULATION 0
[2022-11-19 09:30] LABS: PLATELET ESTIMATE ADEQUATE
[2022-11-19] MEDS: LACTULOSE 20 GM/30 ML UDC (FOR ORAL USE ONLY) PO SCH ×2 (10:00→21:29)
[2022-11-19] MEDS: MAGNESIUM HYDROX 2400MG/30ML ORAL SUSPENSION 30 ML CUP PO SCH ×2 (10:00→22:20)
[2022-11-19] MEDS: HYDROmorphone HCL 2 MG TABLET PO SCH ×2 (10:06→21:30)
[2022-11-19] MEDS: FOLIC ACID 1 MG TABLET (FP) PO SCH (10:06)
[2022-11-19] MEDS: PANTOPRAZOLE 40 MG TABLET PO SCH (10:06)
[2022-11-19] MEDS: ASCORBIC ACID 500 MG TABLET (FP) PO SCH ×2 (10:06→21:30)
[2022-11-19] MEDS: LOSARTAN POTASSIUM 25 MG TABLET PO SCH (10:06)
[2022-11-19] MEDS: LIDOCAINE 5% TOPICAL PATCH TP SCH (10:07)
[2022-11-19] MEDS: VALPROATE SODIUM 250 MG/5 ML UNIT DOSE CUP PO SCH ×2 (10:09→22:19)
[2022-11-19] MEDS: FUROSEMIDE 20 MG TABLET (FP) PO SCH (13:30)
[2022-11-19] MEDS: LACTATED RINGERS SOLUTION 1,000 ML/1,000 ML INFUS.BAG IV SCH (15:33)
[2022-11-19] MEDS: CEFTRIAXONE 1 GM in DEXTROSE 5%-WATER - 50 ML IVPB SCH (18:31)
[2022-11-19] MEDS: SOLIFENACIN SUCCINATE 5 MG TAB PO SCH (21:25)
[2022-11-19] MEDS: OLANZapine 5 MG TABLET PO SCH (21:30)
[2022-11-19] MEDS: ATORVASTATIN CA 80 MG TABLET (FP) PO SCH (21:37)
[2022-11-19] MEDS: LIDOCAINE PATCH REMOVAL MC SCH (21:39)
[2022-11-20] MEDS: GABAPENTIN 300 MG CAPSULE PO SCH ×3 (05:56→22:39)
[2022-11-20] MEDS: IPRATROPIUM BR 0.02% 0.5 MG/2.5 ML VIAL.NEB. NEB SCH ×4 (07:45→20:30)
[2022-11-20] MEDS: LIDOCAINE 5% TOPICAL PATCH TP SCH ×2 (09:28→09:40)
[2022-11-20] MEDS: LOSARTAN POTASSIUM 25 MG TABLET PO SCH (09:28)
[2022-11-20] MEDS: HYDROmorphone HCL 2 MG TABLET PO SCH ×2 (09:28→22:39)
[2022-11-20] MEDS: FOLIC ACID 1 MG TABLET (FP) PO SCH (09:28)
[2022-11-20] MEDS: CEFTRIAXONE 1 GM in DEXTROSE 5%-WATER - 50 ML IVPB SCH (09:28)
[2022-11-20] MEDS: ASCORBIC ACID 500 MG TABLET (FP) PO SCH ×2 (09:30→22:38)
[2022-11-20] MEDS: SENNOSIDES 8.6MG TABLET (FP) PO SCH ×2 (09:30→22:39)
[2022-11-20] MEDS: VALPROATE SODIUM 250 MG/5 ML UNIT DOSE CUP PO SCH ×2 (09:30→22:38)
[2022-11-20] MEDS: FUROSEMIDE 20 MG TABLET (FP) PO SCH (09:30)
[2022-11-20] MEDS: PANTOPRAZOLE 40 MG TABLET PO SCH (09:31)
[2022-11-20] MEDS: MAGNESIUM HYDROX 2400MG/30ML ORAL SUSPENSION 30 ML CUP PO SCH ×2 (09:31→22:41)
[2022-11-20] MEDS: LACTULOSE 20 GM/30 ML UDC (FOR ORAL USE ONLY) PO SCH ×2 (09:31→22:37)
[2022-11-20] MEDS: POLYETHYLENE GLYCOL (HEALTHYLAX) 3350 17 GM PACKET PO SCH ×3 (16:34→22:38)
[2022-11-20] MEDS: MOMETASONE FUROATE 220 MCG/IH INHALER IH SCH (22:15)
[2022-11-20] MEDS: LIDOCAINE PATCH REMOVAL MC SCH (22:38)
[2022-11-20] MEDS: OLANZapine 5 MG TABLET PO SCH (22:38)
[2022-11-20] MEDS: SOLIFENACIN SUCCINATE 5 MG TAB PO SCH (22:39)
[2022-11-20] MEDS: ATORVASTATIN CA 80 MG TABLET (FP) PO SCH (22:39)
[2022-11-21] MEDS: GABAPENTIN 300 MG CAPSULE PO SCH ×3 (06:13→22:15)
[2022-11-21] MEDS: POLYETHYLENE GLYCOL (HEALTHYLAX) 3350 17 GM PACKET PO SCH ×3 (06:13→22:15)
[2022-11-21] MEDS: IPRATROPIUM BR 0.02% 0.5 MG/2.5 ML VIAL.NEB. NEB SCH ×4 (07:33→20:24)
[2022-11-21] MEDS: PANTOPRAZOLE 40 MG TABLET PO SCH (10:39)
[2022-11-21] MEDS: ASCORBIC ACID 500 MG TABLET (FP) PO SCH ×2 (10:39→22:14)
[2022-11-21] MEDS: SENNOSIDES 8.6MG TABLET (FP) PO SCH ×2 (10:39→22:14)
[2022-11-21] MEDS: FOLIC ACID 1 MG TABLET (FP) PO SCH (10:40)
[2022-11-21] MEDS: FUROSEMIDE 20 MG TABLET (FP) PO SCH (10:40)
[2022-11-21] MEDS: MAGNESIUM HYDROX 2400MG/30ML ORAL SUSPENSION 30 ML CUP PO SCH ×2 (10:41→22:19)
[2022-11-21] MEDS: VALPROATE SODIUM 250 MG/5 ML UNIT DOSE CUP PO SCH ×2 (10:41→22:14)
[2022-11-21] MEDS: LACTULOSE 20 GM/30 ML UDC (FOR ORAL USE ONLY) PO SCH ×2 (10:41→22:15)
[2022-11-21] MEDS: CEFTRIAXONE 1 GM in DEXTROSE 5%-WATER - 50 ML IVPB SCH (10:41)
[2022-11-21] MEDS: HYDROmorphone HCL 2 MG TABLET PO SCH ×2 (10:42→22:15)
[2022-11-21] MEDS: LOSARTAN POTASSIUM 25 MG TABLET PO SCH (10:45)
[2022-11-21] MEDS: LIDOCAINE 5% TOPICAL PATCH TP SCH (10:56)
[2022-11-21] MEDS: guaiFENesin 200 MG/10 ML 10 ML UNIT-DOSE CUPS PO PRN (17:57)
[2022-11-21] MEDS: SOLIFENACIN SUCCINATE 5 MG TAB PO SCH (22:14)
[2022-11-21] MEDS: ATORVASTATIN CA 80 MG TABLET (FP) PO SCH (22:14)
[2022-11-21] MEDS: OLANZapine 5 MG TABLET PO SCH (22:14)
[2022-11-21] MEDS: MOMETASONE FUROATE 220 MCG/IH INHALER IH SCH (22:17)
[2022-11-21] MEDS: LIDOCAINE PATCH REMOVAL MC SCH (22:18)
[2022-11-22] MEDS: guaiFENesin 200 MG/10 ML 10 ML UNIT-DOSE CUPS PO PRN ×2 (02:57→17:13)
[2022-11-22] MEDS: GABAPENTIN 300 MG CAPSULE PO SCH ×3 (05:44→21:51)
[2022-11-22] MEDS: POLYETHYLENE GLYCOL (HEALTHYLAX) 3350 17 GM PACKET PO SCH ×3 (05:44→21:52)
[2022-11-22] MEDS: IPRATROPIUM BR 0.02% 0.5 MG/2.5 ML VIAL.NEB. NEB SCH ×2 (08:12→12:25)
[2022-11-22] MEDS: LACTULOSE 20 GM/30 ML UDC (FOR ORAL USE ONLY) PO SCH (10:42)
[2022-11-22] MEDS: MAGNESIUM HYDROX 2400MG/30ML ORAL SUSPENSION 30 ML CUP PO SCH (10:44)
[2022-11-22] MEDS: LOSARTAN POTASSIUM 25 MG TABLET PO SCH (10:45)
[2022-11-22] MEDS: PANTOPRAZOLE 40 MG TABLET PO SCH (10:45)
[2022-11-22] MEDS: FOLIC ACID 1 MG TABLET (FP) PO SCH (10:45)
[2022-11-22] MEDS: SENNOSIDES 8.6MG TABLET (FP) PO SCH ×2 (10:45→21:51)
[2022-11-22] MEDS: VALPROATE SODIUM 250 MG/5 ML UNIT DOSE CUP PO SCH ×2 (10:45→21:52)
[2022-11-22] MEDS: FUROSEMIDE 20 MG TABLET (FP) PO SCH (10:45)
[2022-11-22] MEDS: HYDROmorphone HCL 2 MG TABLET PO SCH ×2 (10:46→21:50)
[2022-11-22] MEDS: LIDOCAINE 5% TOPICAL PATCH TP SCH (10:46)
[2022-11-22] MEDS: CEFTRIAXONE 1 GM in DEXTROSE 5%-WATER - 50 ML IVPB SCH (10:50)
[2022-11-22] MEDS: ASCORBIC ACID 500 MG TABLET (FP) PO SCH ×2 (10:51→21:51)
[2022-11-22] MEDS: ROFLUMILAST 500 MCG TABLET PO SCH (16:20)
[2022-11-22] MEDS: OLANZapine 5 MG TABLET PO SCH (21:51)
[2022-11-22] MEDS: SOLIFENACIN SUCCINATE 5 MG TAB PO SCH (21:51)
[2022-11-22] MEDS: ATORVASTATIN CA 80 MG TABLET (FP) PO SCH (21:51)
[2022-11-22] MEDS: MOMETASONE FUROATE 220 MCG/IH INHALER IH SCH (21:52)
[2022-11-22] MEDS: LIDOCAINE PATCH REMOVAL MC SCH (21:52)
[2022-11-23] MEDS: POLYETHYLENE GLYCOL (HEALTHYLAX) 3350 17 GM PACKET PO SCH ×3 (05:23→21:51)
[2022-11-23] MEDS: GABAPENTIN 300 MG CAPSULE PO SCH (05:23)
[2022-11-23] MEDS: SENNOSIDES 8.6MG TABLET (FP) PO SCH ×2 (10:29→21:49)
[2022-11-23] MEDS: LOSARTAN POTASSIUM 25 MG TABLET PO SCH (10:29)
[2022-11-23] MEDS: HYDROmorphone HCL 2 MG TABLET PO SCH ×2 (10:29→21:49)
[2022-11-23] MEDS: PANTOPRAZOLE 40 MG TABLET PO SCH (10:30)
[2022-11-23] MEDS: FUROSEMIDE 20 MG TABLET (FP) PO SCH (10:30)
[2022-11-23] MEDS: FOLIC ACID 1 MG TABLET (FP) PO SCH (10:30)
[2022-11-23] MEDS: ASCORBIC ACID 500 MG TABLET (FP) PO SCH ×2 (10:30→21:56)
[2022-11-23] MEDS: LIDOCAINE 5% TOPICAL PATCH TP SCH (10:31)
[2022-11-23] MEDS: ROFLUMILAST 500 MCG TABLET PO SCH (10:32)
[2022-11-23] MEDS: VALPROATE SODIUM 250 MG/5 ML UNIT DOSE CUP PO SCH ×2 (10:32→21:48)
[2022-11-23] MEDS: GABAPENTIN 100 MG CAPSULE PO SCH ×2 (14:42→21:48)
[2022-11-23] MEDS: ACETAMINOPHEN 325 MG TABLET (FP) PO PRN (15:23)
[2022-11-23] MEDS: guaiFENesin 200 MG/10 ML 10 ML UNIT-DOSE CUPS PO PRN ×2 (16:48→21:48)
[2022-11-23] MEDS: SOLIFENACIN SUCCINATE 5 MG TAB PO SCH (21:48)
[2022-11-23] MEDS: LIDOCAINE PATCH REMOVAL MC SCH (21:51)
[2022-11-23] MEDS: OLANZapine 5 MG TABLET PO SCH (21:52)
[2022-11-23] MEDS: ATORVASTATIN CA 80 MG TABLET (FP) PO SCH (21:52)
[2022-11-23] MEDS: MOMETASONE FUROATE 220 MCG/IH INHALER IH SCH (21:57)
[2022-11-24] MEDS: POLYETHYLENE GLYCOL (HEALTHYLAX) 3350 17 GM PACKET PO SCH ×2 (06:00→16:42)
[2022-11-24] MEDS: GABAPENTIN 100 MG CAPSULE PO SCH ×2 (06:00→16:42)
[2022-11-24 06:28] LABS: BASO % 0.6 % (0-2.0); EOS % 0.7 % (0-4.5); HEMATOCRIT 25.5 % (32.4-45.2); HEMOGLOBIN 8.6 GM/dL (10.7-15.3); LYMPH % 33.5 % (8-40); MCH 27.6 pg (25.7-33.7); MCHC 33.6 g/dl (32.0-36.0); MEAN CELL VOLUME 82.2 fl (80-96); MEAN PLT VOLUME 8.5 fl (7.5-11.1); MONO % 11.6 % (3.8-10.2); NEUT % 53.6 % (42.8-82.8); PLATELET COUNT 264 10^3/uL (134-434); WHITE BLOOD COUNT 6.3 K/mm3 (4.0-10.0)
[2022-11-24 06:40] LABS: POTASSIUM 4.4 mmol/L (3.5-5.1)
[2022-11-24 06:43] LABS: BLOOD UREA NITROGEN 9.6 mg/dL (7-18); CALCIUM 8.6 mg/dL (8.5-10.1); MAGNESIUM 1.6 mg/dL (1.8-2.4)
[2022-11-24 06:46] LABS: CREATININE 0.2 mg/dL (0.55-1.3)
[2022-11-24 06:48] LABS: BILIRUBIN,TOTAL 0.3 mg/dL (0.2-1); TOT PROT 5.6 g/dl (6.4-8.2)
[2022-11-24] MEDS ORDERED: MAGNESIUM OXIDE 400 MG TABLET (FP) PO ONE (08:31)
[2022-11-24] MEDS: FOLIC ACID 1 MG TABLET (FP) PO SCH (10:29)
[2022-11-24] MEDS: SENNOSIDES 8.6MG TABLET (FP) PO SCH (10:29)
[2022-11-24] MEDS: HYDROmorphone HCL 2 MG TABLET PO SCH (10:30)
[2022-11-24] MEDS: FUROSEMIDE 20 MG TABLET (FP) PO SCH (10:30)
[2022-11-24] MEDS: PANTOPRAZOLE 40 MG TABLET PO SCH (10:32)
[2022-11-24] MEDS: ASCORBIC ACID 500 MG TABLET (FP) PO SCH (10:32)
[2022-11-24] MEDS: ROFLUMILAST 500 MCG TABLET PO SCH (10:32)
[2022-11-24] MEDS: LOSARTAN POTASSIUM 25 MG TABLET PO SCH (10:32)
[2022-11-24] MEDS: LIDOCAINE 5% TOPICAL PATCH TP SCH (10:33)
[2022-11-24] MEDS: VALPROATE SODIUM 250 MG/5 ML UNIT DOSE CUP PO SCH (10:33)
[2022-11-24] MEDS: guaiFENesin 200 MG/10 ML 10 ML UNIT-DOSE CUPS PO PRN (11:00)
[2022-11-24 15:14] VITALS: TEMP 98.4
[2022-11-24] MEDS: ACETAMINOPHEN 325 MG TABLET (FP) PO PRN (16:42)
[2022-11-24 18:07] VITALS: BP 128/60; PULSE 77; RESP 20
== END 2022-11-24 19:07 | DRG 374 ==
LOC: JER 01:24 → JERBED 09:25 → J8W 21:17 → J4W 11-17 13:05 → J4S 11-20 12:50
PROVIDERS: ADMIT Internal Medicine; ATTEND Nurse Practitioner Acute Care
DX: D49.0 Neoplasm of unspecified behavior of digestive system (principal); I63.89 Other cerebral infarction; J96.21 Acute and chronic respiratory failure with hypoxia; F20.89 Other schizophrenia; N39.0 Urinary tract infection, site not specified; G82.20 Paraplegia, unspecified; M79.662 Pain in left lower leg; M79.661 Pain in right lower leg; I25.10 Atherosclerotic heart disease of native coronary artery without angina pectoris; E78.5 Hyperlipidemia, unspecified; I27.20 Pulmonary hypertension, unspecified; I25.2 Old myocardial infarction; J44.9 Chronic obstructive pulmonary disease, unspecified; K59.00 Constipation, unspecified; N32.81 Overactive bladder; M54.50 Low back pain, unspecified; F31.9 Bipolar disorder, unspecified; I11.0 Hypertensive heart disease with heart failure; I50.9 Heart failure, unspecified; B96.20 Unspecified Escherichia coli [E. coli] as the cause of diseases classified elsewhere; G20 Parkinson's disease; M48.8X6 Other specified spondylopathies, lumbar region; G89.29 Other chronic pain; Z74.01 Bed confinement status; Z99.81 Dependence on supplemental oxygen
CPT/HCPCS: 0241U-QW; 36415; 70551-TC; 71045-TC-FY; 72148-TC; 72196-TC; 73502-TC-RT-FY; 73560-TC-RT-FY; 74177-TC; 80053; 80061; 81003; 82378; 82550; 82553; 82607; 82803; 83036; 83605; 83735; 84100; 84443; 84484; 85025; 85610; 85651; 85730; 86140; 86850; 86900; 86901; 87040; 87086; 87186; 93005; 93010; 93880-TC; 94640; 97162-GP; 99285-25; C9803-CS; Q9967; U0003; U0005

== ENCOUNTER 2023-03-25 20:32 | Inpatient (IN) | payer OTHER ==
[2023-03-25 22:18] LABS: BASO % 0.2 % (0-2.0); HEMATOCRIT 30.5 % (32.4-45.2); HEMOGLOBIN 9.7 GM/dL (10.7-15.3); LYMPH % 10.1 % (8-40); MCH 25.4 pg (25.7-33.7); MEAN CELL VOLUME 79.5 fl (80-96); MEAN PLT VOLUME 8.1 fl (7.5-11.1); MONO % 12.4 % (3.8-10.2); NEUT % 77.3 % (42.8-82.8); PLATELET COUNT 270 10^3/uL (134-434); RBC 3.83 M/mm3 (3.60-5.2); RDW 17.5 % (11.6-15.6); WHITE BLOOD COUNT 17.7 K/mm3 (4.0-10.0)
[2023-03-25 22:20] LABS: VENOUS BASE EXCESS 5.3 mmol/L (-2-2); VENOUS O2 SATURATION 34.5 % (70-80); VENOUS PCO2 57.1 mmHg (38-52); VENOUS PH 7.365 (7.310-7.410)
[2023-03-25 22:38] LABS: POTASSIUM 4.4 mmol/L (3.5-5.1)
[2023-03-25 22:39] LABS: BLOOD UREA NITROGEN 8.1 mg/dL (7-18); CALCIUM 9.3 mg/dL (8.5-10.1)
[2023-03-25 22:40] LABS: ALBUMIN 2.7 g/dl (3.4-5.0)
[2023-03-25 22:42] LABS: CREATININE 0.3 mg/dL (0.55-1.3)
[2023-03-25 22:45] LABS: BILIRUBIN,TOTAL 0.2 mg/dL (0.2-1); TOT PROT 6.7 g/dl (6.4-8.2)
[2023-03-25] MEDS ORDERED: FAMOTIDINE 20 MG/50 ML IVPB 20 MG/50 ML MG IVPB ONE ×2 (23:01→23:18)
[2023-03-25] MEDS ORDERED: MAG HYDROX/AL HYDROX/SIMETH 30 ML UNIT-DOSE CUP PO ONE (23:01)
[2023-03-25] MEDS ORDERED: ACETAMINOPHEN 1000 MG/100 ML BAG IVPB ONE (23:01)
[2023-03-25] MEDS ORDERED: ACETAMINOPHEN INJECTION 100 ML IVPB ONE (23:17)
[2023-03-25] MEDS ORDERED: MAG HYDROX/AL HYDROX/SIMETH 30 ML UNIT-DOSE CUP ONE (23:18)
[2023-03-26] MEDS ORDERED: POLYETHYLENE GLYCOL (HEALTHYLAX) 3350 17 GM PACKET PO ONE (02:30)
[2023-03-26] MEDS ORDERED: POLYETHYLENE GLYCOL (HEALTHYLAX) 3350 17 GM PACKET ONE (02:43)
[2023-03-26] MEDS ORDERED: SODIUM PHOSPHATE/NA BIPHOS 133 ML ENEMA PR ONE (02:53)
[2023-03-26] MEDS ORDERED: ALBUTEROL SO4 2.5/IPRATROPIUM 0.5 INH SOL 3 ML VIAL.NEB. NEB PRN (06:23)
[2023-03-26] MEDS: MINERAL OIL ENEMA 133 ML ENEMA RC SCH ×3 (06:27→10:37)
[2023-03-26] MEDS ORDERED: methylPREDNISolone 4 MG TABLET PO SCH (06:45)
[2023-03-26] MEDS ORDERED: GABAPENTIN 300 MG CAPSULE ONE (06:45)
[2023-03-26] MEDS: GABAPENTIN 300 MG CAPSULE PO SCH ×3 (06:52→22:18)
[2023-03-26] MEDS ORDERED: DIVALPROEX NA *ER* EXTEND REL 500 MG TABLET.SA (FP) PO SCH ×2 (10:00→22:00)
[2023-03-26] MEDS ORDERED: MEROPENEM 1 GM in DEXTROSE 5%-WATER 100 ML IVPB SCH (10:00)
[2023-03-26] MEDS: methylPREDNISolone NA SUCC 40 MG/1 ML VIAL IVPUSH SCH ×2 (10:02→17:39)
[2023-03-26] MEDS: FERROUS SO4 325 MG TABLET (FP) PO SCH (10:02)
[2023-03-26] MEDS: FAMOTIDINE 20 MG TABLET PO SCH (10:02)
[2023-03-26] MEDS: HYDROmorphone HCL 2 MG TABLET PO SCH ×2 (10:02→22:19)
[2023-03-26] MEDS: FOLIC ACID 1 MG TABLET (FP) PO SCH (10:03)
[2023-03-26] MEDS: LIDOCAINE 5% TOPICAL PATCH TP SCH (10:03)
[2023-03-26] MEDS: POLYETHYLENE GLYCOL (HEALTHYLAX) 3350 17 GM PACKET PO SCH ×2 (10:04→22:18)
[2023-03-26] MEDS: ROFLUMILAST 500 MCG TABLET PO SCH (11:31)
[2023-03-26] MEDS: DIVALPROEX SODIUM 250 MG TABLET E.C. PO SCH ×2 (11:31→15:35)
[2023-03-26 11:42] VITALS: BMI 26.9
[2023-03-26 13:49] LABS: EPI CELLS 5 /uL (0-25.1); HYALINE CASTS 2 /uL (0-3.1); PH,URINE 7.5 (5.0-8.0); URINE APPEARANCE CLOUDY; URINE BACTERIA 1451 /uL (0-1359); URINE BILIRUBIN NEGATIVE (NEGATIVE); URINE COLOR YELLOW; URINE GLUCOSE (UA) NEGATIVE (NEGATIVE); URINE KETONE 1+ (NEGATIVE); URINE LEUK ESTERASE 1+ (NEGATIVE); URINE NITRITE POSITIVE (NEGATIVE); URINE PROTEIN NEGATIVE (NEGATIVE); URINE RBC 4 /uL (0-23.9); URINE UROBILINOGEN 0.2 mg/dL (0.2-1.0); URINE WBC 296 /uL (0-25.8)
[2023-03-26 14:46] LABS: URINE CRYSTALS NO SEEN /hpf
[2023-03-26] MEDS ORDERED: DIVALPROEX NA *ER* EXTEND REL 500 MG TABLET.SA (FP) PO ONE (15:23)
[2023-03-26] MEDS ORDERED: DIVALPROEX *ER* 250 MG, DIVALPROEX *ER* 500 MG PO ONE (15:45)
[2023-03-26 16:19] LABS: HEMATOCRIT 29.9 % (32.4-45.2); HEMOGLOBIN 9.7 GM/dL (10.7-15.3); MCH 25.7 pg (25.7-33.7); MCHC 32.5 g/dl (32.0-36.0); MEAN CELL VOLUME 78.9 fl (80-96); MEAN PLT VOLUME 8.6 fl (7.5-11.1); PLATELET COUNT 251 10^3/uL (134-434); RBC 3.78 M/mm3 (3.60-5.2); RDW 17.9 % (11.6-15.6); WHITE BLOOD COUNT 9.5 K/mm3 (4.0-10.0)
[2023-03-26 16:34] LABS: POTASSIUM 4.7 mmol/L (3.5-5.1)
[2023-03-26 16:36] LABS: CALCIUM 8.9 mg/dL (8.5-10.1)
[2023-03-26 16:37] LABS: ALBUMIN 2.6 g/dl (3.4-5.0); BLOOD UREA NITROGEN 10.3 mg/dL (7-18); MAGNESIUM 1.8 mg/dL (1.8-2.4)
[2023-03-26 16:40] LABS: CREATININE 0.5 mg/dL (0.55-1.3); PHOSPHOROUS 2.9 mg/dL (2.5-4.9)
[2023-03-26 16:41] LABS: BILIRUBIN,TOTAL 0.2 mg/dL (0.2-1)
[2023-03-26 16:42] LABS: TOT PROT 6.6 g/dl (6.4-8.2)
[2023-03-26] MEDS: MEROPENEM 1 GM in DEXTROSE 5%-WATER 100 ML IVPB SCH (17:39)
[2023-03-26] MEDS: SOLIFENACIN SUCCINATE 5 MG TAB PO SCH (22:18)
[2023-03-26] MEDS: DIVALPROEX *ER* 250 MG, DIVALPROEX *ER* 500 MG PO SCH (22:18)
[2023-03-26] MEDS: LIDOCAINE PATCH REMOVAL MC SCH (22:30)
[2023-03-26] MEDS: MOMETASONE FUROATE 110 MCG/IH INHALER IH SCH (22:40)
[2023-03-27] MEDS ORDERED: ALBUTEROL SO4 0.083% IH SOL 2.5 MG/3 ML VIAL.NEB. NEB PRN (00:52)
[2023-03-27] MEDS ORDERED: MEROPENEM 1 GM VIAL (RESTRICTED TO ID) IVPB ONE (01:48)
[2023-03-27] MEDS: MEROPENEM 1 GM in DEXTROSE 5%-WATER 100 ML IVPB SCH ×3 (01:53→17:15)
[2023-03-27] MEDS: methylPREDNISolone NA SUCC 40 MG/1 ML VIAL IVPUSH SCH (01:54)
[2023-03-27] MEDS: GABAPENTIN 300 MG CAPSULE PO SCH ×3 (06:32→22:23)
[2023-03-27] MEDS: FAMOTIDINE 20 MG TABLET PO SCH (09:41)
[2023-03-27] MEDS: FOLIC ACID 1 MG TABLET (FP) PO SCH (09:41)
[2023-03-27] MEDS: predniSONE 20 MG TABLET (UD) PO SCH (09:41)
[2023-03-27] MEDS: HYDROmorphone HCL 2 MG TABLET PO SCH ×2 (09:43→22:22)
[2023-03-27] MEDS: LIDOCAINE 5% TOPICAL PATCH TP SCH (09:44)
[2023-03-27] MEDS: FERROUS SO4 325 MG TABLET (FP) PO SCH (09:44)
[2023-03-27] MEDS: POLYETHYLENE GLYCOL (HEALTHYLAX) 3350 17 GM PACKET PO SCH ×2 (09:45→22:22)
[2023-03-27] MEDS: DIVALPROEX *ER* 250 MG, DIVALPROEX *ER* 500 MG PO SCH ×2 (09:45→22:23)
[2023-03-27] MEDS: ROFLUMILAST 500 MCG TABLET PO SCH (09:45)
[2023-03-27] MEDS: LIDOCAINE PATCH REMOVAL MC SCH (22:24)
[2023-03-27] MEDS: MOMETASONE FUROATE 110 MCG/IH INHALER IH SCH (22:24)
[2023-03-27] MEDS: SOLIFENACIN SUCCINATE 5 MG TAB PO SCH (22:24)
[2023-03-28] MEDS: MEROPENEM 1 GM in DEXTROSE 5%-WATER 100 ML IVPB SCH ×2 (02:28→09:25)
[2023-03-28] MEDS: GABAPENTIN 300 MG CAPSULE PO SCH ×3 (06:47→21:32)
[2023-03-28] MEDS: HYDROmorphone HCL 2 MG TABLET PO SCH ×2 (09:25→21:30)
[2023-03-28] MEDS: POLYETHYLENE GLYCOL (HEALTHYLAX) 3350 17 GM PACKET PO SCH ×2 (09:25→21:31)
[2023-03-28] MEDS: FAMOTIDINE 20 MG TABLET PO SCH (09:25)
[2023-03-28] MEDS: predniSONE 20 MG TABLET (UD) PO SCH (09:25)
[2023-03-28] MEDS: ROFLUMILAST 500 MCG TABLET PO SCH (09:26)
[2023-03-28] MEDS: FOLIC ACID 1 MG TABLET (FP) PO SCH (09:26)
[2023-03-28] MEDS: FERROUS SO4 325 MG TABLET (FP) PO SCH (09:26)
[2023-03-28] MEDS: DIVALPROEX *ER* 250 MG, DIVALPROEX *ER* 500 MG PO SCH ×2 (09:27→21:31)
[2023-03-28] MEDS: LIDOCAINE 5% TOPICAL PATCH TP SCH (09:44)
[2023-03-28 13:31] LABS: BASO % 0.3 % (0-2.0); HEMATOCRIT 33.4 % (32.4-45.2); HEMOGLOBIN 10.7 GM/dL (10.7-15.3); MCH 25.5 pg (25.7-33.7); MCHC 32.2 g/dl (32.0-36.0); MEAN CELL VOLUME 79.2 fl (80-96); MEAN PLT VOLUME 8.9 fl (7.5-11.1); MONO % 14.3 % (3.8-10.2); NEUT % 65.4 % (42.8-82.8); PLATELET COUNT 274 10^3/uL (134-434); RBC 4.22 M/mm3 (3.60-5.2); RDW 18.3 % (11.6-15.6)
[2023-03-28 14:07] LABS: POTASSIUM 5.1 mmol/L (3.5-5.1)
[2023-03-28 14:08] LABS: CALCIUM 9.3 mg/dL (8.5-10.1)
[2023-03-28 14:09] LABS: BLOOD UREA NITROGEN 12.9 mg/dL (7-18)
[2023-03-28 14:12] LABS: CREATININE 0.4 mg/dL (0.55-1.3)
[2023-03-28] MEDS: FLUTICASONE/UMECLIDIN/VILANTER(200-62.5-25 TRELEGY ELLIPTA) INAHLER IH SCH (15:30)
[2023-03-28] MEDS: SOLIFENACIN SUCCINATE 5 MG TAB PO SCH (21:30)
[2023-03-28] MEDS: LIDOCAINE PATCH REMOVAL MC SCH (21:31)
[2023-03-28] MEDS: MOMETASONE FUROATE 110 MCG/IH INHALER IH SCH (21:31)
[2023-03-29] MEDS: GABAPENTIN 300 MG CAPSULE PO SCH ×2 (06:22→13:54)
[2023-03-29] MEDS: HYDROmorphone HCL 2 MG TABLET PO SCH (10:02)
[2023-03-29] MEDS: FERROUS SO4 325 MG TABLET (FP) PO SCH (10:02)
[2023-03-29] MEDS: FOLIC ACID 1 MG TABLET (FP) PO SCH (10:03)
[2023-03-29] MEDS: FAMOTIDINE 20 MG TABLET PO SCH (10:03)
[2023-03-29] MEDS: predniSONE 20 MG TABLET (UD) PO SCH (10:03)
[2023-03-29] MEDS: DIVALPROEX *ER* 250 MG, DIVALPROEX *ER* 500 MG PO SCH (10:04)
[2023-03-29] MEDS: POLYETHYLENE GLYCOL (HEALTHYLAX) 3350 17 GM PACKET PO SCH (10:04)
[2023-03-29] MEDS: LIDOCAINE 5% TOPICAL PATCH TP SCH (10:07)
[2023-03-29] MEDS: ROFLUMILAST 500 MCG TABLET PO SCH (11:19)
[2023-03-29] MEDS: FLUTICASONE/UMECLIDIN/VILANTER(200-62.5-25 TRELEGY ELLIPTA) INAHLER IH SCH (11:19)
[2023-03-29 11:26] VITALS: RESP 18
[2023-03-29] MEDS ORDERED: ALBUTEROL SO4 2.5/IPRATROPIUM 0.5 INH SOL 3 ML VIAL.NEB. NEB SCH (12:00)
[2023-03-29 12:06] VITALS: BP 128/68; PULSE 80; TEMP 98.1
== END 2023-03-29 15:20 | DRG 189 ==
LOC: JER 20:32 → JERBED 03-26 04:18 → J6S 03-26 08:03
PROVIDERS: ADMIT Internal Medicine; ATTEND Internal Medicine
DX: J96.21 Acute and chronic respiratory failure with hypoxia (principal); J44.1 Chronic obstructive pulmonary disease with (acute) exacerbation; N39.0 Urinary tract infection, site not specified; I69.354 Hemiplegia and hemiparesis following cerebral infarction affecting left non-dominant side; K62.89 Other specified diseases of anus and rectum
CPT/HCPCS: 0241U-QW; 36415; 71045-TC-FY; 71275-TC; 74177-TC; 80048; 80053; 81003; 82803; 83605; 83690; 83735; 84100; 84484; 85025; 85027; 87070; 87086; 87186; 87205; 87899; 93005; 93010; 94640; 99285-25; Q9967

== ENCOUNTER 2023-08-10 04:07 | Inpatient (IN) | payer OTHER ==
[2023-08-10 04:31] VITALS: BMI 25.7
[2023-08-10] MEDS ORDERED: ACETAMINOPHEN INJECTION 100 ML IVPB ONE (05:35)
[2023-08-10] MEDS: ACETAMINOPHEN 1000 MG/100 ML BAG IVPB ONE (05:38)
[2023-08-10] MEDS: SODIUM CHLORIDE 1,000 ML IV STA (05:38)
[2023-08-10 06:41] LABS: BASO % 0.4 % (0-2.0); EOS % 0.3 % (0-4.5); HEMATOCRIT 35.2 % (32.4-45.2); HEMOGLOBIN 11.1 GM/dL (10.7-15.3); LYMPH % 10.9 % (8-40); MCH 26.7 pg (25.7-33.7); MCHC 31.6 g/dl (32.0-36.0); MEAN CELL VOLUME 84.2 fl (80-96); NEUT % 72.4 % (42.8-82.8); PLATELET COUNT 309 10^3/uL (134-434); RBC 4.18 M/mm3 (3.60-5.2); RDW 14.6 % (11.6-15.6); WHITE BLOOD COUNT 14.9 K/mm3 (4.0-10.0)
[2023-08-10 06:50] LABS: POTASSIUM 4.4 mmol/L (3.5-5.1)
[2023-08-10 06:52] LABS: CALCIUM 9.3 mg/dL (8.5-10.1)
[2023-08-10 06:56] LABS: CREATININE 1.5 mg/dL (0.55-1.3)
[2023-08-10 06:57] LABS: BILIRUBIN,TOTAL 0.6 mg/dL (0.2-1)
[2023-08-10 07:06] LABS: INR 1.36 (0.83-1.09); PROTHROMBIN TIME (PATIENT) 15.7 SEC (9.7-13.0)
[2023-08-10 07:09] LABS: ACTIVATED PTT 36.7 SECONDS (25.2-36.5)
[2023-08-10 09:02] LABS: EPI CELLS >36 /uL (0-25.1); HYALINE CASTS 15 /uL (0-3.1); PH,URINE 5.5 (5.0-8.0); URINE APPEARANCE TURBID; URINE BACTERIA 491 /uL (0-1359); URINE BILIRUBIN 2+ (NEGATIVE); URINE COLOR DK YELLOW; URINE GLUCOSE (UA) NEGATIVE (NEGATIVE); URINE KETONE 2+ (NEGATIVE); URINE LEUK ESTERASE 1+ (NEGATIVE); URINE NITRITE NEGATIVE (NEGATIVE); URINE PROTEIN 3+ (NEGATIVE); URINE RBC 25 /uL (0-23.9); URINE WBC 621 /uL (0-25.8)
[2023-08-10] MEDS: LACTATED RINGERS SOLUTION 1,000 ML/1,000 ML INFUS.BAG IV SCH (13:53)
[2023-08-10] MEDS: GABAPENTIN 300 MG CAPSULE PO SCH (14:23)
[2023-08-10] MEDS: HEPARIN NA (PORCINE) 5,000 UNITS/ML 1ML VIAL SQ SCH (14:23)
[2023-08-10] MEDS: TIOTROPIUM BROMIDE 2.5 MCG (SPIRIVA) RESPIMAT INHALER IH SCH (14:23)
[2023-08-10] MEDS: MEROPENEM 1 GM in DEXTROSE 5%-WATER 100 ML IVPB SCH (14:23)
[2023-08-10] MEDS: oxyCODONE HCL 5 MG TABLET PO SCH (21:34)
[2023-08-10] MEDS: SENNOSIDES 8.6MG TABLET (FP) PO SCH (21:34)
[2023-08-10] MEDS: POLYETHYLENE GLYCOL (HEALTHYLAX) 3350 17 GM PACKET PO SCH (21:35)
[2023-08-10] MEDS: ATORVASTATIN CA 20 MG TABLET (FP) PO SCH (21:35)
[2023-08-10] MEDS: OXYBUTYNIN CHLORIDE 5 MG TABLET PO SCH (21:46)
[2023-08-10] MEDS: LIDOCAINE PATCH REMOVAL MC SCH (21:47)
[2023-08-11] MEDS: VALPROATE SODIUM 250 MG/5 ML UNIT DOSE CUP PO SCH (10:43)
[2023-08-11] MEDS: FOLIC ACID 1 MG TABLET (FP) PO SCH (10:43)
[2023-08-11] MEDS: ROFLUMILAST 500 MCG TABLET PO SCH (10:43)
[2023-08-11] MEDS: LIDOCAINE 4% PATCH TP SCH (10:45)
[2023-08-11] MEDS: FAMOTIDINE 20 MG TABLET PO SCH (10:45)
[2023-08-11 11:42] LABS: BASO % 0.9 % (0-2.0); EOS % 0.4 % (0-4.5); HEMATOCRIT 34.9 % (32.4-45.2); HEMOGLOBIN 10.9 GM/dL (10.7-15.3); LYMPH % 26.8 % (8-40); MCH 26.7 pg (25.7-33.7); MCHC 31.4 g/dl (32.0-36.0); MEAN CELL VOLUME 85.1 fl (80-96); MEAN PLT VOLUME 9.4 fl (7.5-11.1); NEUT % 59.9 % (42.8-82.8); PLATELET COUNT 270 10^3/uL (134-434); WHITE BLOOD COUNT 12.8 K/mm3 (4.0-10.0)
[2023-08-11 12:14] LABS: POTASSIUM 4.2 mmol/L (3.5-5.1)
[2023-08-11 12:17] LABS: CALCIUM 9.9 mg/dL (8.5-10.1)
[2023-08-11 12:18] LABS: ALBUMIN 2.6 g/dl (3.4-5.0); MAGNESIUM 1.7 mg/dL (1.8-2.4)
[2023-08-11 12:21] LABS: CREATININE 0.5 mg/dL (0.55-1.3); PHOSPHOROUS 2.4 mg/dL (2.5-4.9)
[2023-08-11 12:22] LABS: BILIRUBIN,TOTAL 0.4 mg/dL (0.2-1); TOT PROT 6.9 g/dl (6.4-8.2)
[2023-08-11] MEDS: MAGNESIUM SULF 50% (8.12 MEQ/2 ML-1 GM VIAL) IVPB ONE (19:52)
[2023-08-11] MEDS: MOMETASONE FUROATE 220 MCG/IH INHALER IH SCH (23:27)
[2023-08-13] MEDS: MEROPENEM 1 GM in DEXTROSE 5%-WATER 100 ML IVPB SCH (10:29)
[2023-08-15 09:29] LABS: POTASSIUM 5.2 mmol/L (3.5-5.1)
[2023-08-15 09:31] LABS: ALBUMIN 2.2 g/dl (3.4-5.0); BLOOD UREA NITROGEN 9.7 mg/dL (7-18); CALCIUM 8.9 mg/dL (8.5-10.1); MAGNESIUM 1.7 mg/dL (1.8-2.4)
[2023-08-15 09:35] LABS: BILIRUBIN,TOTAL 0.4 mg/dL (0.2-1); CREATININE 0.2 mg/dL (0.55-1.3); TOT PROT 5.7 g/dl (6.4-8.2)
[2023-08-15 21:13] VITALS: BP 148/86; PULSE 93; RESP 17; TEMP 98.2
== END 2023-08-15 21:20 | DRG 315 ==
LOC: JER 04:07 → JERBED 05:40 → OBSVTOIN 09:21 → J4S 13:20
PROVIDERS: ADMIT Internal Medicine; ATTEND Nurse Practitioner Family
DX: I95.9 Hypotension, unspecified (principal); I24.89 Other forms of acute ischemic heart disease; J96.11 Chronic respiratory failure with hypoxia; I10 Essential (primary) hypertension; F03.90 Unspecified dementia, unspecified severity, without behavioral disturbance, psychotic disturbance, mood disturbance, and anxiety; E78.5 Hyperlipidemia, unspecified; J44.9 Chronic obstructive pulmonary disease, unspecified; M48.8X6 Other specified spondylopathies, lumbar region; G89.4 Chronic pain syndrome; N32.81 Overactive bladder; K62.89 Other specified diseases of anus and rectum; G40.909 Epilepsy, unspecified, not intractable, without status epilepticus; R79.89 Other specified abnormal findings of blood chemistry; W06.XXXA Fall from bed, initial encounter; D72.829 Elevated white blood cell count, unspecified; R00.0 Tachycardia, unspecified; Z74.01 Bed confinement status; Y92.092 Bedroom in other non-institutional residence as the place of occurrence of the external cause; Z99.81 Dependence on supplemental oxygen
CPT/HCPCS: 0241U-QW; 36415; 70450-TC; 71250-TC; 72125-TC; 72128-TC; 72131-TC; 73562-TC-LT-FY; 73562-TC-RT-FY; 73590-TC-LT-FY; 73590-TC-RT-FY; 73610-TC-LT-FY; 73610-TC-RT-FY; 73630-TC-LT; 73630-TC-RT-FY; 73700-TC-RT; 74176-TC; 80053; 81003; 82550; 83735; 84100; 84484; 85025; 85610; 85730; 87040; 87086; 87635; 93005; 93010; 93306-TC; 99282-25; 99285-25; G0378; J0131; J1644

== ENCOUNTER 2023-09-08 11:04 | Inpatient (IN) | payer OTHER ==
[2023-09-08 15:26] LABS: EPI CELLS 5 /uL (0-25.1); HYALINE CASTS 4 /uL (0-3.1); PH,URINE 5.5 (5.0-8.0); URINE APPEARANCE CLOUDY; URINE BACTERIA >9,000 /uL (0-1359); URINE BILIRUBIN 1+ (NEGATIVE); URINE COLOR DK YELLOW; URINE GLUCOSE (UA) NEGATIVE (NEGATIVE); URINE KETONE NEGATIVE (NEGATIVE); URINE LEUK ESTERASE 1+ (NEGATIVE); URINE NITRITE POSITIVE (NEGATIVE); URINE PROTEIN TRACE (NEGATIVE); URINE RBC 69 /uL (0-23.9); URINE WBC 223 /uL (0-25.8)
[2023-09-08 15:40] LABS: BASO % 0.8 % (0-2.0); EOS % 3.8 % (0-4.5); HEMATOCRIT 35.1 % (32.4-45.2); HEMOGLOBIN 11.4 GM/dL (10.7-15.3); LYMPH % 45.4 % (8-40); MCHC 32.5 g/dl (32.0-36.0); MEAN CELL VOLUME 83.2 fl (80-96); MEAN PLT VOLUME 8.8 fl (7.5-11.1); MONO % 8.9 % (3.8-10.2); NEUT % 41.1 % (42.8-82.8); PLATELET COUNT 252 10^3/uL (134-434); RBC 4.22 M/mm3 (3.60-5.2); WHITE BLOOD COUNT 7.6 K/mm3 (4.0-10.0)
[2023-09-08 15:44] LABS: VENOUS BASE EXCESS 2.1 mmol/L (-2-2); VENOUS O2 SATURATION 16.8 % (70-80); VENOUS PCO2 60.2 mmHg (38-52); VENOUS PH 7.309 (7.310-7.410)
[2023-09-08 16:01] LABS: ALBUMIN 2.9 g/dl (3.4-5.0); CALCIUM 9.2 mg/dL (8.5-10.1)
[2023-09-08 16:02] LABS: BLOOD UREA NITROGEN 10.6 mg/dL (7-18)
[2023-09-08 16:05] LABS: CREATININE 0.4 mg/dL (0.55-1.3)
[2023-09-08 16:06] LABS: BILIRUBIN,TOTAL 0.6 mg/dL (0.2-1); TOT PROT 7.1 g/dl (6.4-8.2)
[2023-09-08] MEDS: SODIUM CHLORIDE 0.9% 500 ML INFUS.BAG IV ONE (16:09)
[2023-09-08] MEDS ORDERED: MEROPENEM 1 GM VIAL (RESTRICTED TO ID) IVPB ONE (16:18)
[2023-09-08] MEDS: MEROPENEM 1 GM in DEXTROSE 5%-WATER 100 ML IVPB ONE (16:28)
[2023-09-08] MEDS: SENNOSIDES 8.6MG TABLET (FP) PO SCH (22:49)
[2023-09-08] MEDS: ENOXAPARIN NA (PORCINE) 40 MG/0.4 ML DISP.SYRIN SQ SCH (22:49)
[2023-09-08] MEDS: GABAPENTIN 300 MG CAPSULE PO SCH (22:49)
[2023-09-08] MEDS: POLYETHYLENE GLYCOL (HEALTHYLAX) 3350 17 GM PACKET PO SCH (22:49)
[2023-09-08] MEDS: ATORVASTATIN CA 20 MG TABLET (FP) PO SCH (22:49)
[2023-09-09] MEDS: MEROPENEM 1 GM in DEXTROSE 5%-WATER 100 ML IVPB SCH ×2 (06:38→06:46)
[2023-09-09] MEDS: FAMOTIDINE 20 MG TABLET PO SCH (09:32)
[2023-09-09] MEDS: FOLIC ACID 1 MG TABLET (FP) PO SCH (09:32)
[2023-09-09] MEDS: VALPROATE SODIUM 250 MG/5 ML UNIT DOSE CUP PO SCH (09:33)
[2023-09-09] MEDS: oxyCODONE HCL 5 MG TABLET PO SCH (09:33)
[2023-09-09] MEDS: TIOTROPIUM BROMIDE 2.5 MCG (SPIRIVA) RESPIMAT INHALER IH SCH (09:35)
[2023-09-09] MEDS: ROFLUMILAST 500 MCG TABLET PO SCH (09:36)
[2023-09-09] MEDS: MOMETASONE FUROATE 220 MCG/IH INHALER IH SCH (09:36)
[2023-09-09] MEDS: ACETAMINOPHEN 325 MG TABLET (FP) PO PRN (15:40)
[2023-09-09 16:04] VITALS: BMI 20.6
[2023-09-11 07:58] LABS: BASO % 0.4 % (0-2.0); EOS % 2.9 % (0-4.5); HEMATOCRIT 38.1 % (32.4-45.2); HEMOGLOBIN 12.2 GM/dL (10.7-15.3); MCH 26.7 pg (25.7-33.7); MEAN CELL VOLUME 83.2 fl (80-96); MEAN PLT VOLUME 8.9 fl (7.5-11.1); MONO % 9.7 % (3.8-10.2); PLATELET COUNT 142 10^3/uL (134-434); RBC 4.58 M/mm3 (3.60-5.2); RDW 14.6 % (11.6-15.6); WHITE BLOOD COUNT 4.9 K/mm3 (4.0-10.0)
[2023-09-11 08:31] LABS: POTASSIUM 4.5 mmol/L (3.5-5.1)
[2023-09-11 08:33] LABS: ALBUMIN 2.8 g/dl (3.4-5.0); MAGNESIUM 1.7 mg/dL (1.8-2.4)
[2023-09-11 08:34] LABS: BLOOD UREA NITROGEN 11.4 mg/dL (7-18)
[2023-09-11 08:36] LABS: CREATININE 0.3 mg/dL (0.55-1.3)
[2023-09-11 08:38] LABS: BILIRUBIN,TOTAL 0.5 mg/dL (0.2-1); TOT PROT 6.9 g/dl (6.4-8.2)
[2023-09-11] MEDS: MIRTAZAPINE 15 MG TABLET (FP) PO SCH (21:46)
[2023-09-11 23:01] VITALS: RESP 18
[2023-09-12 06:13] VITALS: BP 129/62; PULSE 85; TEMP 98.2
[2023-09-12] MEDS: MULTIVITAMINS (DAILY MVI) TABLET (FP) PO SCH (11:00)
[2023-09-12 11:09] LABS: BASO % 0.6 % (0-2.0); EOS % 3.9 % (0-4.5); HEMATOCRIT 36.7 % (32.4-45.2); HEMOGLOBIN 12.1 GM/dL (10.7-15.3); MCH 27.1 pg (25.7-33.7); MEAN CELL VOLUME 82.2 fl (80-96); MEAN PLT VOLUME 9.4 fl (7.5-11.1); MONO % 8.5 % (3.8-10.2); PLATELET COUNT 217 10^3/uL (134-434); RBC 4.47 M/mm3 (3.60-5.2); RDW 14.4 % (11.6-15.6); WHITE BLOOD COUNT 7.4 K/mm3 (4.0-10.0)
[2023-09-12 11:33] LABS: POTASSIUM 4.3 mmol/L (3.5-5.1)
[2023-09-12 11:35] LABS: CALCIUM 8.8 mg/dL (8.5-10.1)
[2023-09-12 11:36] LABS: ALBUMIN 2.6 g/dl (3.4-5.0); BLOOD UREA NITROGEN 11.3 mg/dL (7-18); MAGNESIUM 1.7 mg/dL (1.8-2.4)
[2023-09-12 11:39] LABS: CREATININE 0.3 mg/dL (0.55-1.3)
[2023-09-12 11:41] LABS: BILIRUBIN,TOTAL 0.3 mg/dL (0.2-1); TOT PROT 6.9 g/dl (6.4-8.2)
== END 2023-09-12 13:33 | DRG 696 ==
LOC: JER 11:04 → JERBED 16:20 → J8W 20:47
PROVIDERS: ADMIT Internal Medicine; ATTEND Nurse Practitioner Family
DX: R82.71 Bacteriuria (principal); J96.11 Chronic respiratory failure with hypoxia; J44.9 Chronic obstructive pulmonary disease, unspecified; F03.90 Unspecified dementia, unspecified severity, without behavioral disturbance, psychotic disturbance, mood disturbance, and anxiety; N32.81 Overactive bladder; G89.4 Chronic pain syndrome; I25.10 Atherosclerotic heart disease of native coronary artery without angina pectoris; I27.20 Pulmonary hypertension, unspecified; M48.8X6 Other specified spondylopathies, lumbar region; K21.9 Gastro-esophageal reflux disease without esophagitis; G40.909 Epilepsy, unspecified, not intractable, without status epilepticus; K59.00 Constipation, unspecified; F31.9 Bipolar disorder, unspecified; K62.9 Disease of anus and rectum, unspecified; E78.5 Hyperlipidemia, unspecified; F20.9 Schizophrenia, unspecified; R62.7 Adult failure to thrive; Z68.20 Body mass index [BMI] 20.0-20.9, adult; D64.9 Anemia, unspecified; I25.2 Old myocardial infarction; Z99.81 Dependence on supplemental oxygen
CPT/HCPCS: 0241U-QW; 36415; 70450-TC; 71045-TC-FY; 80053; 81003; 82550; 82803; 83605; 83735; 84484; 85025; 87040; 87086; 87186; 87635; 93005; 93010; 99285-25

== ENCOUNTER 2023-10-08 13:55 | Inpatient (IN) | payer OTHER ==
[2023-10-08] MEDS ORDERED: MIDAZOLAM HCL 5 MG/1 ML Single Dose Vial ONE (14:02)
[2023-10-08] MEDS ORDERED: RAPID SEQUENCE INTUBATION KIT NR ONE ×2 (14:10→14:14)
[2023-10-08] MEDS ORDERED: levETIRAcetam 500 MG/5 ML INJECTION VIAL IVPB ONE (14:19)
[2023-10-08] MEDS: ETOMIDATE 40 MG/20 ML VIAL IVPUSH ONE (14:30)
[2023-10-08] MEDS: ROCURONIUM BROMIDE 50 MG/5 ML VIAL IV ONE (14:31)
[2023-10-08] MEDS: SODIUM CHLORIDE 0.9% 500 ML INFUS.BAG IV ONE (14:36)
[2023-10-08] MEDS: levETIRAcetam 500 MG/5 ML INJECTION VIAL IVPB ONE (14:38)
[2023-10-08 15:20] LABS: BASO % 0.3 % (0-2.0); HEMATOCRIT 38.5 % (32.4-45.2); HEMOGLOBIN 12.4 GM/dL (10.7-15.3); LYMPH % 9.2 % (8-40); MCH 26.2 pg (25.7-33.7); MCHC 32.1 g/dl (32.0-36.0); MEAN CELL VOLUME 81.6 fl (80-96); MEAN PLT VOLUME 10.9 fl (7.5-11.1); MONO % 4.1 % (3.8-10.2); NEUT % 86.4 % (42.8-82.8); PLATELET COUNT 360 10^3/uL (134-434); RBC 4.72 M/mm3 (3.60-5.2); RDW 14.7 % (11.6-15.6); VENOUS BASE EXCESS -4.4 mmol/L (-2-2); VENOUS O2 SATURATION 62.4 % (70-80); VENOUS PCO2 69.4 mmHg (38-52); WHITE BLOOD COUNT 18.8 K/mm3 (4.0-10.0)
[2023-10-08 15:23] LABS: EPI CELLS >36 /uL (0-25.1); HYALINE CASTS 23 /uL (0-3.1); URINE APPEARANCE CLOUDY; URINE BACTERIA 3626 /uL (0-1359); URINE BILIRUBIN 1+ (NEGATIVE); URINE COLOR DK YELLOW; URINE GLUCOSE (UA) NEGATIVE (NEGATIVE); URINE KETONE 4+ (NEGATIVE); URINE LEUK ESTERASE 1+ (NEGATIVE); URINE NITRITE POSITIVE (NEGATIVE); URINE PROTEIN 3+ (NEGATIVE); URINE WBC 740 /uL (0-25.8)
[2023-10-08 15:24] LABS: VENOUS PH 7.177 (7.310-7.410)
[2023-10-08 15:27] LABS: INR 1.41 (0.83-1.09); PROTHROMBIN TIME (PATIENT) 16.3 SEC (9.7-13.0)
[2023-10-08 15:39] LABS: URINE RBC 36 /uL (0-23.9)
[2023-10-08 15:43] LABS: CHLORIDE 105 mmol/L (98-107); POTASSIUM 3.2 mmol/L (3.5-5.1); SODIUM 139 mmol/L (136-145)
[2023-10-08 15:45] LABS: BLOOD UREA NITROGEN 18.9 mg/dL (7-18); CALCIUM 10.3 mg/dL (8.5-10.1)
[2023-10-08 15:46] LABS: ALBUMIN 3.2 g/dl (3.4-5.0); ANION GAP 7 mmol/L (4-13); CO2 27 mmol/L (21-32); GLUCOSE,RANDOM 175 mg/dL (74-106)
[2023-10-08 15:49] LABS: CREATININE 0.8 mg/dL (0.55-1.3); SGOT/AST 43 U/L (15-37); SGPT/ALT 47 U/L (13-61)
[2023-10-08 15:50] LABS: BILIRUBIN,TOTAL 0.6 mg/dL (0.2-1)
[2023-10-08] MEDS ORDERED: MIDAZOLAM IN 0.9 % SOD.CHLORID 1 MG/1 ML PLAST..BAG ONE (15:50)
[2023-10-08 15:51] LABS: TOT PROT 7.5 g/dl (6.4-8.2)
[2023-10-08] MEDS ORDERED: MEROPENEM 1 GM VIAL (RESTRICTED TO ID) IVPB ONE (15:51)
[2023-10-08 15:52] LABS: ALK PHOS 116 U/L (45-117)
[2023-10-08] MEDS ORDERED: PROPOFOL 1,000,000 MCG/100 ML VIAL IVPB SCH (16:00)
[2023-10-08 16:04] LABS: MAGNESIUM 1.4 mg/dL (1.8-2.4)
[2023-10-08 16:28] LABS: ARTERIAL BLD GAS O2 SATURATION 98.7 % (95-98); ARTERIAL BLOOD GAS BASE EXCESS -3.4 mmol/L (-2-2); ARTERIAL BLOOD GAS PO2 146.7 mmHg (80-100)
[2023-10-08] MEDS: MIDAZOLAM HCL 5 MG/1 ML Single Dose Vial IM ONE (16:38)
[2023-10-08] MEDS: MIDAZOLAM 100 MG in SODIUM CHLORIDE 100 ML IVPB SCH (16:41)
[2023-10-08] MEDS: MEROPENEM 1 GM in DEXTROSE 5%-WATER 100 ML IVPB ONE (16:49)
[2023-10-08 17:07] LABS: LACTIC ACID 2.3 mmol/L (0.4-2.0)
[2023-10-08] MEDS ORDERED: ALBUTEROL SO4 2.5/IPRATROPIUM 0.5 INH SOL 3 ML VIAL.NEB. NEB PRN (17:32)
[2023-10-08] MEDS: KCL 20 MEQ PREMIX BAG 20 MEQ/100 ML INFUS.BAG IVPB SCH (17:56)
[2023-10-08] MEDS: MAGNESIUM SULF 50% (8.12 MEQ/2 ML-1 GM VIAL) IVPB ONE ×2 (18:09→21:06)
[2023-10-08] MEDS: KCL 10 MEQ IVPB 10 MEQ/100 ML INFUS.BAG IVPB SCH (18:30)
[2023-10-08] MEDS ORDERED: FENTANYL CITRATE/PF 50 MCG/ML VIAL IVPUSH PRN (21:05)
[2023-10-08] MEDS: LACTATED RINGERS SOLUTION 1000 ML INFUS.BAG IV ONE (21:06)
[2023-10-08] MEDS ORDERED: HEPARIN NA (PORCINE) 5,000 UNITS/ML 1ML VIAL SQ SCH (22:00)
[2023-10-08] MEDS: CHLORHEXIDINE GLUCONATE 4% CLEANSER FOR DECOLONIZATION TP SCH (22:36)
[2023-10-08] MEDS: MUPIROCIN 2% TOPICAL OINTMENT FOR DECOLONIZATION NS SCH (22:36)
[2023-10-09 00:59] LABS: CHLORIDE 109 mmol/L (98-107); POTASSIUM 4.5 mmol/L (3.5-5.1); SODIUM 144 mmol/L (136-145)
[2023-10-09 01:01] LABS: CALCIUM 9.4 mg/dL (8.5-10.1)
[2023-10-09 01:02] LABS: ANION GAP 11 mmol/L (4-13); BLOOD UREA NITROGEN 16.1 mg/dL (7-18); CO2 24 mmol/L (21-32); GLUCOSE,RANDOM 96 mg/dL (74-106); MAGNESIUM 2.9 mg/dL (1.8-2.4)
[2023-10-09 01:06] LABS: CREATININE 0.4 mg/dL (0.55-1.3)
[2023-10-09] MEDS: MEROPENEM 1 GM in DEXTROSE 5%-WATER 100 ML IVPB SCH (01:36)
[2023-10-09] MEDS: HEPARIN SOD,PORK IN 0.45% NACL 25,000 UNIT/500 ML INFUS.BAG IVPB SCH (02:26)
[2023-10-09] MEDS: HEPARIN NA (PORCINE) 5,000 UNITS/ML 1ML VIAL IVPUSH ONE (02:31)
[2023-10-09] MEDS: HYDROCORTISONE SOD SUCCINATE 100 MG/2 ML VIAL IVPUSH ONE ×2 (02:32→09:39)
[2023-10-09 06:36] LABS: BASO % 0.3 % (0-2.0); EOS % 0.1 % (0-4.5); HEMATOCRIT 32.6 % (32.4-45.2); HEMOGLOBIN 10.5 GM/dL (10.7-15.3); LYMPH % 9.8 % (8-40); MCH 26.5 pg (25.7-33.7); MCHC 32.2 g/dl (32.0-36.0); MEAN CELL VOLUME 82.3 fl (80-96); MEAN PLT VOLUME 10.4 fl (7.5-11.1); MONO % 3.1 % (3.8-10.2); NEUT % 86.7 % (42.8-82.8); PLATELET COUNT 277 10^3/uL (134-434); RBC 3.96 M/mm3 (3.60-5.2); RDW 14.5 % (11.6-15.6); WHITE BLOOD COUNT 10.5 K/mm3 (4.0-10.0)
[2023-10-09 06:48] LABS: INR 1.47 (0.83-1.09)
[2023-10-09 06:57] LABS: VENOUS O2 SATURATION 36.7 % (70-80); VENOUS PCO2 52.6 mmHg (38-52); VENOUS PH 7.267 (7.310-7.410)
[2023-10-09] MEDS: MIDAZOLAM IN 0.9 % SOD.CHLORID 100 MG/100 ML PLAST..BAG IVPB SCH (07:00)
[2023-10-09 08:00] LABS: BLOOD UREA NITROGEN 14.5 mg/dL (7-18); CREATININE 0.4 mg/dL (0.55-1.3); MAGNESIUM 2.2 mg/dL (1.8-2.4); PHOSPHOROUS 3.9 mg/dL (2.5-4.9); POTASSIUM 4.2 mmol/L (3.5-5.1)
[2023-10-09] MEDS: PANTOPRAZOLE SODIUM 40 MG VIAL IVPUSH SCH (09:37)
[2023-10-09] MEDS: levETIRAcetam 500 MG/5 ML INJECTION VIAL IVPB SCH (09:47)
[2023-10-09] MEDS ORDERED: METOPROLOL TARTRATE 25 MG TABLET (FP) GT SCH ×2 (10:00)
[2023-10-09] MEDS ORDERED: METOPROLOL TARTRATE 5 MG/5 ML VIAL IVPB SCH (10:00)
[2023-10-09] MEDS: METOPROLOL TARTRATE 25 MG TABLET (FP) GT SCH (15:39)
[2023-10-09] MEDS: VALPROATE SODIUM 250 MG/5 ML UNIT DOSE CUP NGT SCH ×2 (15:39→21:06)
[2023-10-09] MEDS: DEXMEDETOMIDINE PREMIX 400 MCG/100 ML BAG IVPB SCH (17:42)
[2023-10-09] MEDS: ACETAMINOPHEN 1000 MG/100 ML BAG IVPB STA (17:43)
[2023-10-09] MEDS: FUROSEMIDE INJECTION 100 MG in SODIUM CHLORIDE 90 ML IVPB SCH (18:36)
[2023-10-09] MEDS ORDERED: NOREPINEPHRINE BITARTRATE 4 MG/4 ML ML IV ONE (20:38)
[2023-10-09] MEDS: NOREPINEPHRINE 0.9 % NACL 8 MG/250 ML BAG IVPB SCH (20:48)
[2023-10-10 07:57] LABS: HEMATOCRIT 33.6 % (32.4-45.2); HEMOGLOBIN 10.7 GM/dL (10.7-15.3); MCH 25.8 pg (25.7-33.7); MCHC 31.9 g/dl (32.0-36.0); MEAN CELL VOLUME 80.8 fl (80-96); MEAN PLT VOLUME 10.3 fl (7.5-11.1); PLATELET COUNT 293 10^3/uL (134-434); RBC 4.16 M/mm3 (3.60-5.2); RDW 14.4 % (11.6-15.6); WHITE BLOOD COUNT 11.1 K/mm3 (4.0-10.0)
[2023-10-10 08:14] LABS: CHLORIDE 104 mmol/L (98-107); POTASSIUM 3.1 mmol/L (3.5-5.1); SODIUM 145 mmol/L (136-145)
[2023-10-10 08:16] LABS: ANION GAP 11 mmol/L (4-13); BLOOD UREA NITROGEN 13.6 mg/dL (7-18); CO2 30 mmol/L (21-32); GLUCOSE,RANDOM 117 mg/dL (74-106); MAGNESIUM 1.5 mg/dL (1.8-2.4)
[2023-10-10 08:19] LABS: CALCIUM 9.3 mg/dL (8.5-10.1); CREATININE 0.5 mg/dL (0.55-1.3)
[2023-10-10 08:24] LABS: PHOSPHOROUS 4.1 mg/dL (2.5-4.9)
[2023-10-10] MEDS: MAGNESIUM SULF 50% (8.12 MEQ/2 ML-1 GM VIAL) IVPB ONE (08:27)
[2023-10-10] MEDS: KCL 10 MEQ IVPB 10 MEQ/100 ML INFUS.BAG IVPB SCH (09:20)
[2023-10-11 07:34] LABS: HEMATOCRIT 33.3 % (32.4-45.2); HEMOGLOBIN 10.6 GM/dL (10.7-15.3); MCHC 31.7 g/dl (32.0-36.0); MEAN CELL VOLUME 81.9 fl (80-96); MEAN PLT VOLUME 10.5 fl (7.5-11.1); PLATELET COUNT 257 10^3/uL (134-434); RBC 4.07 M/mm3 (3.60-5.2); RDW 14.4 % (11.6-15.6); WHITE BLOOD COUNT 8.4 K/mm3 (4.0-10.0)
[2023-10-11 07:52] LABS: BLOOD UREA NITROGEN 16.2 mg/dL (7-18)
[2023-10-11 07:54] LABS: CALCIUM 9.5 mg/dL (8.5-10.1); MAGNESIUM 1.6 mg/dL (1.8-2.4)
[2023-10-11 07:55] LABS: CREATININE 0.4 mg/dL (0.55-1.3)
[2023-10-11] MEDS: MAGNESIUM SULF 50% (8.12 MEQ/2 ML-1 GM VIAL) IVPB ONE (08:59)
[2023-10-11] MEDS: KCL 20 MEQ PREMIX BAG 20 MEQ/100 ML INFUS.BAG IVPB SCH (09:03)
[2023-10-11] MEDS ORDERED: VALPROATE SODIUM 500 MG/5 ML VIAL IVPB SCH (14:15)
[2023-10-11] MEDS: VALPROATE SODIUM INJECTION 250 MG in SODIUM CHLORIDE 50 ML IVPB SCH (18:09)
[2023-10-12 07:37] LABS: HEMATOCRIT 31.2 % (32.4-45.2); HEMOGLOBIN 9.9 GM/dL (10.7-15.3); MCH 26.2 pg (25.7-33.7); MCHC 31.8 g/dl (32.0-36.0); MEAN CELL VOLUME 82.4 fl (80-96); MEAN PLT VOLUME 10.2 fl (7.5-11.1); PLATELET COUNT 226 10^3/uL (134-434); RBC 3.78 M/mm3 (3.60-5.2); RDW 14.4 % (11.6-15.6); WHITE BLOOD COUNT 7.5 K/mm3 (4.0-10.0)
[2023-10-12 07:52] LABS: POTASSIUM 4.2 mmol/L (3.5-5.1)
[2023-10-12 07:59] LABS: BLOOD UREA NITROGEN 16.9 mg/dL (7-18); CALCIUM 9.6 mg/dL (8.5-10.1); MAGNESIUM 1.9 mg/dL (1.8-2.4)
[2023-10-12 08:02] LABS: CREATININE 0.2 mg/dL (0.55-1.3); PHOSPHOROUS 2.4 mg/dL (2.5-4.9)
[2023-10-12 08:04] LABS: BILIRUBIN,TOTAL 0.5 mg/dL (0.2-1); TOT PROT 5.9 g/dl (6.4-8.2)
[2023-10-12 08:12] LABS: ALBUMIN 2.3 g/dl (3.4-5.0)
[2023-10-12] MEDS: DEXTROSE 5%-0.45% SALINE 1,000 ML IV SCH (09:54)
[2023-10-12] MEDS: VALPROATE SODIUM 250 MG/5 ML UNIT DOSE CUP PO SCH (21:23)
[2023-10-12] MEDS: METOPROLOL TARTRATE 25 MG TABLET (FP) PO SCH (21:23)
[2023-10-12] MEDS: levETIRAcetam 500 MG TABLET (FP) PO SCH (21:24)
[2023-10-12] MEDS: GABAPENTIN 300 MG CAPSULE PO SCH (21:24)
[2023-10-13] MEDS: FOLIC ACID 1 MG TABLET (FP) PO SCH (09:04)
[2023-10-13 11:11] VITALS: BMI 19.0
[2023-10-13 14:41] VITALS: RESP 25
[2023-10-13 18:51] VITALS: BP 130/65; PULSE 110; TEMP 98.5
[2023-10-13] MEDS ORDERED: MIRTAZAPINE 15 MG TABLET (FP) PO SCH (22:00)
== END 2023-10-13 18:50 | DRG 100 ==
LOC: JER 13:55 → JERBED 15:55 → JICU 17:53
PROVIDERS: ADMIT Internal Medicine Pulmonary Disease; ATTEND Nurse Practitioner Acute Care
PROC: 05HM33Z Insertion of Infusion Device into Right Internal Jugular Vein, Percutaneous Approach (ICD-10-PCS; principal; 2023-10-09)
PROC: B543ZZA Ultrasonography of Right Jugular Veins, Guidance (ICD-10-PCS; 2023-10-09)
PROC: 0BH18EZ Insertion of Endotracheal Airway into Trachea, Via Natural or Artificial Opening Endoscopic (ICD-10-PCS; 2023-10-09)
PROC: 5A1945Z Respiratory Ventilation, 24-96 Consecutive Hours (ICD-10-PCS; 2023-10-09)
DX: G40.901 Epilepsy, unspecified, not intractable, with status epilepticus (principal); J96.21 Acute and chronic respiratory failure with hypoxia; N39.0 Urinary tract infection, site not specified; G81.94 Hemiplegia, unspecified affecting left nondominant side; I24.89 Other forms of acute ischemic heart disease; E87.20 Acidosis, unspecified; J98.11 Atelectasis; J44.9 Chronic obstructive pulmonary disease, unspecified; I25.10 Atherosclerotic heart disease of native coronary artery without angina pectoris; F03.90 Unspecified dementia, unspecified severity, without behavioral disturbance, psychotic disturbance, mood disturbance, and anxiety; F20.9 Schizophrenia, unspecified; K62.9 Disease of anus and rectum, unspecified; E78.00 Pure hypercholesterolemia, unspecified; I27.20 Pulmonary hypertension, unspecified; K59.00 Constipation, unspecified; N32.81 Overactive bladder; F31.9 Bipolar disorder, unspecified; M48.9 Spondylopathy, unspecified; Z88.0 Allergy status to penicillin; Z99.81 Dependence on supplemental oxygen
CPT/HCPCS: 0241U-QW; 31500; 36415; 36600; 70450-TC; 71045-TC-FY; 71275-TC; 80048; 80053; 80164; 80177; 81003; 82550; 82553; 82607; 82610; 82746; 82803; 82962; 83605; 83735; 83880; 84100; 84436; 84439; 84443; 84445; 84481; 84484; 85025; 85027; 85610; 85730; 86850; 86900; 86901; 87040; 87086; 87635; 93005; 93010; 93970-TC; 94002; 99285-25; J0131; J1644

== ENCOUNTER 2024-01-09 09:02 | Inpatient (IN) | payer OTHER ==
[2024-01-09] MEDS ORDERED: MIDAZOLAM HCL 2 MG/2 ML SINGLE DOSE VIAL ONE ×2 (09:18→16:16)
[2024-01-09] MEDS ORDERED: ACETAMINOPHEN INJECTION 100 ML IVPB ONE (09:23)
[2024-01-09] MEDS: MIDAZOLAM HCL 2 MG/2 ML SINGLE DOSE VIAL IVPUSH ONE (09:47)
[2024-01-09] MEDS: ACETAMINOPHEN 1000 MG/100 ML BAG IVPB ONE ×2 (09:47→15:55)
[2024-01-09] MEDS: SODIUM CHLORIDE 0.9% 1000 ML INFUS.BAG IV STA (09:47)
[2024-01-09 10:07] LABS: BASO % 0.2 % (0-2.0); HEMATOCRIT 39.3 % (32.4-45.2); HEMOGLOBIN 12.6 GM/dL (10.7-15.3); LYMPH % 7.9 % (8-40); MCH 26.3 pg (25.7-33.7); MCHC 32.1 g/dl (32.0-36.0); MEAN PLT VOLUME 8.9 fl (7.5-11.1); MONO % 3.7 % (3.8-10.2); NEUT % 88.2 % (42.8-82.8); PLATELET COUNT 217 10^3/uL (134-434); RBC 4.79 M/mm3 (3.60-5.2); RDW 15.6 % (11.6-15.6); WHITE BLOOD COUNT 11.7 K/mm3 (4.0-10.0)
[2024-01-09 10:11] LABS: VENOUS BASE EXCESS -1.6 mmol/L (-2-2)
[2024-01-09 10:16] LABS: INR 1.22 (0.83-1.09); VENOUS PCO2 107.2 mmHg (38-52); VENOUS PH 7.085 (7.310-7.410)
[2024-01-09 10:19] LABS: ACTIVATED PTT 34.6 SECONDS (25.2-36.5)
[2024-01-09] MEDS ORDERED: ALBUTEROL SO4 2.5/IPRATROPIUM 0.5 INH SOL 3 ML VIAL.NEB. NEB ONE (10:29)
[2024-01-09] MEDS ORDERED: ROCURONIUM BROMIDE 50 MG/5 ML SYRINGE ONE ×2 (10:31→10:32)
[2024-01-09 10:32] LABS: CHLORIDE 96 mmol/L (98-107); POTASSIUM 4.3 mmol/L (3.5-5.1); SODIUM 138 mmol/L (136-145)
[2024-01-09] MEDS ORDERED: PROPOFOL 20 ML ONE (10:33)
[2024-01-09 10:34] LABS: ALBUMIN 3.4 g/dl (3.4-5.0); ANION GAP 2 mmol/L (4-13); CALCIUM 9.4 mg/dL (8.5-10.1); CO2 39 mmol/L (21-32)
[2024-01-09 10:35] LABS: BLOOD UREA NITROGEN 20.7 mg/dL (7-18); GLUCOSE,RANDOM 182 mg/dL (74-106)
[2024-01-09 10:37] LABS: CREATININE 0.5 mg/dL (0.55-1.3)
[2024-01-09 10:38] LABS: SGOT/AST 29 U/L (15-37); SGPT/ALT 19 U/L (13-61)
[2024-01-09 10:39] LABS: BILIRUBIN,TOTAL 0.7 mg/dL (0.2-1); TOT PROT 7.9 g/dl (6.4-8.2)
[2024-01-09 10:41] LABS: ALK PHOS 95 U/L (45-117)
[2024-01-09] MEDS: ALBUTEROL SO4 2.5/IPRATROPIUM 0.5 INH SOL 3 ML VIAL.NEB. NEB ONE (11:09)
[2024-01-09] MEDS: PROPOFOL 200 MG/20 ML VIAL IVPUSH ONE ×2 (11:13→11:29)
[2024-01-09] MEDS ORDERED: PROPOFOL 1,000,000 MCG/100 ML VIAL ONE (11:16)
[2024-01-09] MEDS ORDERED: ONDANSETRON 4 MG/2 ML VIAL ONE (11:17)
[2024-01-09] MEDS ORDERED: VANCOMYCIN 1 GRAM (PRE-DOCKED) 1,000 MG/250 ML BAG IVPB ONE (11:17)
[2024-01-09] MEDS ORDERED: CEFEPIME 2 GM/100 ML BAG IVPB ONE (11:18)
[2024-01-09] MEDS: PROPOFOL 1,000,000 MCG/100 ML VIAL IVPB SCH (11:24)
[2024-01-09] MEDS: ROCURONIUM BROMIDE 50 MG/5 ML VIAL IVPUSH ONE (11:29)
[2024-01-09 12:27] LABS: VENOUS BASE EXCESS -1.8 mmol/L (-2-2); VENOUS O2 SATURATION 31.5 % (70-80)
[2024-01-09 12:29] LABS: VENOUS PCO2 119.4 mmHg (38-52); VENOUS PH 7.041 (7.310-7.410)
[2024-01-09] MEDS: CEFEPIME HCL 2 GM VIAL (RESTRICTED TO ID) IVPB ONE (12:38)
[2024-01-09] MEDS: VANCOMYCIN 1,000 MG in DEXTROSE 5%-WATER - 250 ML IVPB ONE (12:38)
[2024-01-09] MEDS: ONDANSETRON 4 MG/2 ML VIAL IVPUSH ONE (12:38)
[2024-01-09] MEDS: SODIUM CHLORIDE 1,000 ML IV SCH (12:39)
[2024-01-09 13:02] LABS: EPI CELLS 9 /uL (0-25.1); HYALINE CASTS 2 /uL (0-3.1); URINE APPEARANCE CLOUDY; URINE BACTERIA 836 /uL (0-1359); URINE BILIRUBIN NEGATIVE (NEGATIVE); URINE COLOR YELLOW; URINE GLUCOSE (UA) NEGATIVE (NEGATIVE); URINE KETONE NEGATIVE (NEGATIVE); URINE LEUK ESTERASE NEGATIVE (NEGATIVE); URINE NITRITE NEGATIVE (NEGATIVE); URINE PROTEIN 3+ (NEGATIVE); URINE RBC 83 /uL (0-23.9); URINE UROBILINOGEN 0.2 mg/dL (0.2-1.0)
[2024-01-09 14:08] LABS: URINE WBC 329 /uL (0-25.8)
[2024-01-09] MEDS: FOLIC ACID 1 MG TABLET (FP) PO SCH (14:30)
[2024-01-09] MEDS ORDERED: RAPID SEQUENCE INTUBATION KIT NR ONE (15:05)
[2024-01-09 15:50] LABS: ARTERIAL BLD GAS O2 SATURATION 97.2 % (95-98); ARTERIAL BLOOD GAS BASE EXCESS 2.4 mmol/L (-2-2); ARTERIAL BLOOD GAS PO2 89.7 mmHg (80-100); ARTERIAL BLOOD GAS pH 7.454 (7.350-7.450)
[2024-01-09] MEDS: CLOPIDOGREL BISULFATE 300 MG TABLET PO ONE (15:54)
[2024-01-09 15:56] LABS: ALLENS TEST POSITIVE; PT'S TEMP 101; VENT MODE A/C; VENT RATE 20
[2024-01-09] MEDS: CEFEPIME 2 GM in DEXTROSE 5%-WATER 100 ML IVPB SCH (17:22)
[2024-01-09] MEDS: PANTOPRAZOLE SODIUM 40 MG VIAL IVPUSH SCH (17:22)
[2024-01-09] MEDS ORDERED: CEFEPIME HCL 2 GM VIAL (RESTRICTED TO ID) IVPB SCH (20:30)
[2024-01-09] MEDS ORDERED: [UNRECOGNIZED DRUG - OTHER] IVPB SCH (22:00)
[2024-01-09] MEDS ORDERED: levETIRAcetam 500 MG/5 ML ORAL SOLUTION (UNIT-DOSE CUPS) GT SCH (22:00)
[2024-01-09] MEDS ORDERED: PATIENT'S OWN MEDICATION (NON-FORMULARY) (Ipratropium Bromide [Atrovent Hfa] 12.9 GM Hfa.A IH SCH (22:00)
[2024-01-09] MEDS: FENTANYL NS IVPB 500 MCG/100 ML BAG IVPB SCH (22:28)
[2024-01-09] MEDS: VALPROATE SODIUM 250 MG/5 ML UNIT DOSE CUP GT SCH (22:30)
[2024-01-09] MEDS: CHLORHEXIDINE GLUCONATE 4% CLEANSER FOR DECOLONIZATION TP SCH (22:30)
[2024-01-09] MEDS: levETIRAcetam 500 MG/5 ML INJECTION VIAL IVPB SCH (22:30)
[2024-01-09] MEDS: MUPIROCIN 2% TOPICAL OINTMENT FOR DECOLONIZATION NS SCH (22:30)
[2024-01-09] MEDS: ATORVASTATIN CA 40 MG TABLET (FP) PO SCH (22:31)
[2024-01-09] MEDS: NYSTATIN 100,000 UNIT/GM TOPICAL CREAM 15 GM TUBE TP SCH (22:32)
[2024-01-10] MEDS ORDERED: VANCOMYCIN 1,000 MG in DEXTROSE 5%-WATER - 250 ML IVPB SCH (06:00)
[2024-01-10] MEDS: VANCOMYCIN/WATER FOR INJ (PEG) 1,000 MG/200 ML BAG IVPB SCH ×2 (06:20→18:16)
[2024-01-10] MEDS: DEXMEDETOMIDINE PREMIX 400 MCG/100 ML BAG IVPB SCH (06:40)
[2024-01-10] MEDS ORDERED: MIDAZOLAM HCL 2 MG/2 ML SINGLE DOSE VIAL ONE (07:22)
[2024-01-10] MEDS: MIDAZOLAM HCL 2 MG/2 ML SINGLE DOSE VIAL IVPUSH ONE (08:34)
[2024-01-10 09:33] LABS: BASO % 0.4 % (0-2.0); EOS % 0.1 % (0-4.5); HEMATOCRIT 31.7 % (32.4-45.2); HEMOGLOBIN 10.5 GM/dL (10.7-15.3); LYMPH % 15.1 % (8-40); MCH 26.9 pg (25.7-33.7); MEAN CELL VOLUME 81.7 fl (80-96); MEAN PLT VOLUME 8.9 fl (7.5-11.1); MONO % 10.8 % (3.8-10.2); NEUT % 73.6 % (42.8-82.8); PLATELET COUNT 143 10^3/uL (134-434); RBC 3.88 M/mm3 (3.60-5.2); RDW 15.9 % (11.6-15.6)
[2024-01-10 09:58] LABS: POTASSIUM 3.2 mmol/L (3.5-5.1)
[2024-01-10 10:11] LABS: BLOOD UREA NITROGEN 22.1 mg/dL (7-18)
[2024-01-10 10:13] LABS: ALBUMIN 2.8 g/dl (3.4-5.0); CALCIUM 8.3 mg/dL (8.5-10.1)
[2024-01-10 10:14] LABS: MAGNESIUM 1.5 mg/dL (1.8-2.4)
[2024-01-10 10:17] LABS: CREATININE 0.4 mg/dL (0.55-1.3); PHOSPHOROUS 3.1 mg/dL (2.5-4.9)
[2024-01-10 10:18] LABS: BILIRUBIN,TOTAL 0.6 mg/dL (0.2-1); TOT PROT 6.4 g/dl (6.4-8.2)
[2024-01-10] MEDS: CLOPIDOGREL BISULFATE 75 MG TABLET (FP) PO SCH (10:31)
[2024-01-10] MEDS: MAGNESIUM SULF 50% (8.12 MEQ/2 ML-1 GM VIAL) IVPB ONE (10:32)
[2024-01-10] MEDS: LACTATED RINGERS SOLUTION 1000 ML INFUS.BAG IV ONE ×2 (10:33→14:53)
[2024-01-10] MEDS: LACTATED RINGERS SOLUTION 1,000 ML/1,000 ML INFUS.BAG IV SCH (10:33)
[2024-01-10] MEDS ORDERED: MIDAZOLAM IN 0.9 % SOD.CHLORID 1 MG/1 ML PLAST..BAG ONE (11:57)
[2024-01-10] MEDS: MIDAZOLAM IN 0.9 % SOD.CHLORID 100 MG/100 ML PLAST..BAG IVPB SCH (12:01)
[2024-01-10] MEDS: LACTATED RINGERS SOLUTION 1,000 ML/1,000 ML INFUS.BAG IV STA (13:29)
[2024-01-10] MEDS ORDERED: NOREPINEPHRINE BITARTRATE 4 MG/4 ML ML IV ONE (16:55)
[2024-01-10] MEDS: NOREPINEPHRINE 0.9 % NACL 8 MG/250 ML BAG IVPB SCH (17:09)
[2024-01-10] MEDS ORDERED: DEXTROSE 50%-WATER 25 GM/50 ML DISP.SYRIN ONE (17:58)
[2024-01-10] MEDS: DEXTROSE 50%-WATER 25 GM/50 ML DISP.SYRIN IVPUSH PRN (18:04)
[2024-01-10] MEDS: CEFEPIME 1 GM in DEXTROSE 5%-WATER 100 ML IVPB SCH (18:04)
[2024-01-10] MEDS: DEXTROSE 50%-WATER - 25 GM/50 ML VIAL IVPUSH ONE (18:06)
[2024-01-10] MEDS: POTASSIUM CHLORIDE ORAL LIQUID 20 MEQ/15 ML PO ONE (18:15)
[2024-01-10] MEDS: AMINO ACIDS 4.25%/D5W 1,000 ML IV SCH (20:22)
[2024-01-11] MEDS: FENTANYL NS IVPB 500 MCG/100 ML BAG IVPB SCH (00:02)
[2024-01-11 07:36] LABS: HEMATOCRIT 26.1 % (32.4-45.2); HEMOGLOBIN 8.6 GM/dL (10.7-15.3); MCH 27.1 pg (25.7-33.7); MCHC 33.1 g/dl (32.0-36.0); MEAN PLT VOLUME 9.5 fl (7.5-11.1); PLATELET COUNT 136 10^3/uL (134-434); RBC 3.18 M/mm3 (3.60-5.2); RDW 15.7 % (11.6-15.6); WHITE BLOOD COUNT 11.1 K/mm3 (4.0-10.0)
[2024-01-11 07:39] LABS: POTASSIUM 3.2 mmol/L (3.5-5.1)
[2024-01-11 07:46] LABS: BLOOD UREA NITROGEN 14.8 mg/dL (7-18); CALCIUM 7.8 mg/dL (8.5-10.1); MAGNESIUM 1.7 mg/dL (1.8-2.4)
[2024-01-11 07:49] LABS: CREATININE 0.2 mg/dL (0.55-1.3)
[2024-01-11 07:50] LABS: BILIRUBIN,TOTAL 0.7 mg/dL (0.2-1); TOT PROT 5.2 g/dl (6.4-8.2)
[2024-01-11 08:15] LABS: ALBUMIN 2.2 g/dl (3.4-5.0)
[2024-01-11 09:28] LABS: PHOSPHOROUS 1.9 mg/dL (2.5-4.9)
[2024-01-11] MEDS: MAGNESIUM 2GM/50ML STERILE WATER IVPB IVPB ONE (09:30)
[2024-01-11] MEDS: DEXMEDETOMIDINE PREMIX 400 MCG/100 ML BAG IVPB SCH (10:56)
[2024-01-11] MEDS: POTASSIUM CHLORIDE ORAL LIQUID 20 MEQ/15 ML PO ONE (12:39)
[2024-01-11] MEDS: LACTATED RINGERS SOLUTION 1000 ML INFUS.BAG IV ONE (12:41)
[2024-01-11] MEDS: NOREPINEPHRINE BITARTRATE 16,000 MCG in SODIUM CHLORIDE 484 ML IV SCH (12:42)
[2024-01-11] MEDS: NAPH,MB-DB/K PH,MBDB POWDER PACKET GT SCH (21:52)
[2024-01-12 06:30] LABS: HEMATOCRIT 26.6 % (32.4-45.2); HEMOGLOBIN 8.8 GM/dL (10.7-15.3); MCH 27.2 pg (25.7-33.7); MCHC 33.1 g/dl (32.0-36.0); MEAN CELL VOLUME 82.3 fl (80-96); PLATELET COUNT 118 10^3/uL (134-434); RBC 3.24 M/mm3 (3.60-5.2); RDW 15.5 % (11.6-15.6); WHITE BLOOD COUNT 8.1 K/mm3 (4.0-10.0)
[2024-01-12 06:50] LABS: POTASSIUM 4.2 mmol/L (3.5-5.1)
[2024-01-12 06:52] LABS: CALCIUM 7.9 mg/dL (8.5-10.1)
[2024-01-12 06:53] LABS: ALBUMIN 2.1 g/dl (3.4-5.0); BLOOD UREA NITROGEN 12.3 mg/dL (7-18); MAGNESIUM 1.6 mg/dL (1.8-2.4)
[2024-01-12 06:56] LABS: CREATININE 0.3 mg/dL (0.55-1.3); PHOSPHOROUS 1.8 mg/dL (2.5-4.9)
[2024-01-12 06:57] LABS: BILIRUBIN,TOTAL 0.4 mg/dL (0.2-1); TOT PROT 5.2 g/dl (6.4-8.2)
[2024-01-12] MEDS: NAPH,MB-DB/K PH,MBDB POWDER PACKET GT ONE (09:06)
[2024-01-12] MEDS: MAGNESIUM 2GM/50ML STERILE WATER IVPB IVPB ONE (09:06)
[2024-01-12] MEDS ORDERED: CEFEPIME HCL 1 GM VIAL (RESTRICTED TO ID) ONE (16:44)
[2024-01-12] MEDS: ALPRAZolam 0.25 MG TABLET GT PRN (21:05)
[2024-01-12] MEDS: MIRTAZAPINE 15 MG TABLET (FP) PO SCH (21:05)
[2024-01-13 06:48] LABS: BASO % 0.2 % (0-2.0); EOS % 1.3 % (0-4.5); HEMATOCRIT 25.6 % (32.4-45.2); HEMOGLOBIN 8.4 GM/dL (10.7-15.3); MCHC 32.8 g/dl (32.0-36.0); MEAN CELL VOLUME 82.2 fl (80-96); MONO % 12.6 % (3.8-10.2); NEUT % 59.9 % (42.8-82.8); PLATELET COUNT 134 10^3/uL (134-434); RBC 3.12 M/mm3 (3.60-5.2); RDW 15.3 % (11.6-15.6); WHITE BLOOD COUNT 7.5 K/mm3 (4.0-10.0)
[2024-01-13 07:02] LABS: POTASSIUM 3.5 mmol/L (3.5-5.1)
[2024-01-13 07:04] LABS: CALCIUM 8.1 mg/dL (8.5-10.1); MAGNESIUM 1.7 mg/dL (1.8-2.4)
[2024-01-13 07:07] LABS: BLOOD UREA NITROGEN 8.4 mg/dL (7-18)
[2024-01-13 07:08] LABS: CREATININE 0.2 mg/dL (0.55-1.3); PHOSPHOROUS 2.3 mg/dL (2.5-4.9)
[2024-01-13 07:09] LABS: BILIRUBIN,TOTAL 0.4 mg/dL (0.2-1); TOT PROT 4.9 g/dl (6.4-8.2)
[2024-01-13] MEDS: MAGNESIUM 2GM/50ML STERILE WATER IVPB IVPB ONE (11:00)
[2024-01-13] MEDS: THIAMINE HCL 200 MG/2 ML VIAL IVPB SCH (12:52)
[2024-01-13 15:33] VITALS: BMI 24.3
[2024-01-13] MEDS: NAPH,MB-DB/K PH,MBDB POWDER PACKET GT ONE (15:51)
[2024-01-13 23:32] LABS: ARTERIAL BLD GAS O2 SATURATION 98.8 % (95-98); ARTERIAL BLOOD GAS BASE EXCESS 4.1 mmol/L (-2-2); ARTERIAL BLOOD GAS PO2 167.9 mmHg (80-100); ARTERIAL BLOOD GAS pH 7.247 (7.350-7.450)
[2024-01-13 23:39] LABS: ALLENS TEST POSITIVE
[2024-01-14 03:24] LABS: ARTERIAL BLD GAS O2 SATURATION 98.6 % (95-98); ARTERIAL BLOOD GAS BASE EXCESS 5.1 mmol/L (-2-2); ARTERIAL BLOOD GAS pH 7.363 (7.350-7.450)
[2024-01-14 03:28] LABS: ALLENS TEST POSITIVE
[2024-01-14 03:30] LABS: VENT MODE S/T; VENT RATE 16
[2024-01-14 07:27] LABS: HEMATOCRIT 25.4 % (32.4-45.2); HEMOGLOBIN 8.4 GM/dL (10.7-15.3); MCHC 32.9 g/dl (32.0-36.0); MEAN CELL VOLUME 82.1 fl (80-96); MEAN PLT VOLUME 8.7 fl (7.5-11.1); PLATELET COUNT 147 10^3/uL (134-434); RDW 15.6 % (11.6-15.6); WHITE BLOOD COUNT 7.1 K/mm3 (4.0-10.0)
[2024-01-14 07:33] LABS: POTASSIUM 4.1 mmol/L (3.5-5.1)
[2024-01-14 07:38] LABS: BLOOD UREA NITROGEN 6.9 mg/dL (7-18); MAGNESIUM 1.8 mg/dL (1.8-2.4)
[2024-01-14 07:42] LABS: CREATININE 0.2 mg/dL (0.55-1.3)
[2024-01-15 06:51] LABS: BASO % 0.4 % (0-2.0); EOS % 3.5 % (0-4.5); HEMATOCRIT 26.9 % (32.4-45.2); HEMOGLOBIN 8.8 GM/dL (10.7-15.3); LYMPH % 26.9 % (8-40); MCH 26.9 pg (25.7-33.7); MCHC 32.5 g/dl (32.0-36.0); MEAN CELL VOLUME 82.7 fl (80-96); MEAN PLT VOLUME 8.3 fl (7.5-11.1); MONO % 11.4 % (3.8-10.2); NEUT % 57.8 % (42.8-82.8); PLATELET COUNT 182 10^3/uL (134-434); RBC 3.25 M/mm3 (3.60-5.2); RDW 15.6 % (11.6-15.6); WHITE BLOOD COUNT 7.1 K/mm3 (4.0-10.0)
[2024-01-15 07:02] LABS: POTASSIUM 3.9 mmol/L (3.5-5.1)
[2024-01-15 07:06] LABS: CALCIUM 8.4 mg/dL (8.5-10.1)
[2024-01-15 07:07] LABS: ALBUMIN 2.1 g/dl (3.4-5.0); BLOOD UREA NITROGEN 10.8 mg/dL (7-18); MAGNESIUM 1.6 mg/dL (1.8-2.4)
[2024-01-15 07:10] LABS: CREATININE 0.2 mg/dL (0.55-1.3)
[2024-01-15 07:12] LABS: BILIRUBIN,TOTAL 0.4 mg/dL (0.2-1); TOT PROT 5.2 g/dl (6.4-8.2)
[2024-01-15] MEDS: MAGNESIUM SULFATE IN WATER 2 GM/50 ML IVPB IVPB ONE (09:52)
[2024-01-15] MEDS: MAGNESIUM SULF 50% (8.12 MEQ/2 ML-1 GM VIAL) IVPB ONE (09:55)
[2024-01-15] MEDS: AMINO ACIDS 4.25%/D5W 1,000 ML IV SCH (16:51)
[2024-01-16] MEDS: ACETAMINOPHEN 325 MG TABLET (FP) PO PRN (05:16)
[2024-01-16 06:27] LABS: ARTERIAL BLD GAS O2 SATURATION 97.2 % (95-98); ARTERIAL BLOOD GAS BASE EXCESS 2.8 mmol/L (-2-2); ARTERIAL BLOOD GAS PO2 100.8 mmHg (80-100); ARTERIAL BLOOD GAS pH 7.352 (7.350-7.450)
[2024-01-16 06:36] LABS: ALLENS TEST POSITIVE
[2024-01-16 06:37] LABS: VENT MODE S/T; VENT RATE 16
[2024-01-16 06:58] LABS: BASO % 0.3 % (0-2.0); EOS % 3.1 % (0-4.5); HEMATOCRIT 28.5 % (32.4-45.2); HEMOGLOBIN 9.1 GM/dL (10.7-15.3); LYMPH % 30.6 % (8-40); MCH 26.5 pg (25.7-33.7); MCHC 32.1 g/dl (32.0-36.0); MEAN CELL VOLUME 82.4 fl (80-96); MEAN PLT VOLUME 8.3 fl (7.5-11.1); MONO % 10.8 % (3.8-10.2); NEUT % 55.2 % (42.8-82.8); PLATELET COUNT 209 10^3/uL (134-434); RBC 3.46 M/mm3 (3.60-5.2); RDW 15.5 % (11.6-15.6); WHITE BLOOD COUNT 6.3 K/mm3 (4.0-10.0)
[2024-01-16 07:13] LABS: POTASSIUM 3.8 mmol/L (3.5-5.1)
[2024-01-16 07:17] LABS: BLOOD UREA NITROGEN 14.3 mg/dL (7-18)
[2024-01-16 07:18] LABS: MAGNESIUM 1.4 mg/dL (1.8-2.4)
[2024-01-16 07:20] LABS: CREATININE 0.2 mg/dL (0.55-1.3)
[2024-01-16 07:24] LABS: BILIRUBIN,TOTAL 0.3 mg/dL (0.2-1)
[2024-01-16] MEDS: MAGNESIUM 2GM/50ML STERILE WATER IVPB IVPB ONE (09:34)
[2024-01-16] MEDS: ALPRAZolam 0.25 MG TABLET GT PRN (09:35)
[2024-01-16] MEDS: MAGNESIUM SULFATE IN WATER 2 GM/50 ML IVPB IVPB ONE (13:57)
[2024-01-17 07:13] LABS: BASO % 0.3 % (0-2.0); EOS % 1.6 % (0-4.5); HEMATOCRIT 31.2 % (32.4-45.2); LYMPH % 13.7 % (8-40); MCH 26.7 pg (25.7-33.7); MCHC 31.9 g/dl (32.0-36.0); MEAN CELL VOLUME 83.6 fl (80-96); MEAN PLT VOLUME 7.9 fl (7.5-11.1); MONO % 12.3 % (3.8-10.2); NEUT % 72.1 % (42.8-82.8); PLATELET COUNT 238 10^3/uL (134-434); RBC 3.73 M/mm3 (3.60-5.2); RDW 15.7 % (11.6-15.6); WHITE BLOOD COUNT 9.5 K/mm3 (4.0-10.0)
[2024-01-17 07:29] LABS: CHLORIDE 108 mmol/L (98-107); POTASSIUM 3.5 mmol/L (3.5-5.1); SODIUM 143 mmol/L (136-145)
[2024-01-17 07:31] LABS: CALCIUM 8.1 mg/dL (8.5-10.1)
[2024-01-17 07:33] LABS: ALBUMIN 2.1 g/dl (3.4-5.0); ANION GAP 0 mmol/L (4-13); BLOOD UREA NITROGEN 7.5 mg/dL (7-18); CO2 36 mmol/L (21-32); GLUCOSE,RANDOM 129 mg/dL (74-106); MAGNESIUM 1.5 mg/dL (1.8-2.4)
[2024-01-17 07:36] LABS: BILIRUBIN,TOTAL 0.2 mg/dL (0.2-1); CREATININE < 0.2 mg/dL (0.55-1.3); PHOSPHOROUS 2.7 mg/dL (2.5-4.9); SGOT/AST 20 U/L (15-37); SGPT/ALT 17 U/L (13-61); TOT PROT 5.3 g/dl (6.4-8.2)
[2024-01-17 07:39] LABS: ALK PHOS 54 U/L (45-117)
[2024-01-17] MEDS: MAGNESIUM SULF 50% (8.12 MEQ/2 ML-1 GM VIAL) IVPB ONE (11:29)
[2024-01-17] MEDS ORDERED: NOREPINEPHRINE BITARTRATE 4,000 MCG in DEXTROSE 5%-WATER - 496 ML IV SCH (23:45)
[2024-01-17] MEDS: NOREPINEPHRINE 0.9 % NACL 8 MG/250 ML BAG IVPB SCH (23:50)
[2024-01-18 00:30] LABS: ARTERIAL BLD GAS O2 SATURATION 91.5 % (95-98); ARTERIAL BLOOD GAS BASE EXCESS 4.1 mmol/L (-2-2); ARTERIAL BLOOD GAS PO2 74.3 mmHg (80-100); ARTERIAL BLOOD GAS pH 7.236 (7.350-7.450)
[2024-01-18] MEDS ORDERED: RAPID SEQUENCE INTUBATION KIT NR ONE (00:52)
[2024-01-18] MEDS ORDERED: ROCURONIUM BROMIDE 50 MG/5 ML VIAL ONE ×2 (00:56→01:03)
[2024-01-18] MEDS ORDERED: PROPOFOL 1,000,000 MCG/100 ML VIAL ONE (00:57)
[2024-01-18] MEDS: ROCURONIUM BROMIDE 50 MG/5 ML SYRINGE IVPUSH ONE (01:11)
[2024-01-18] MEDS: KETAMINE HCL 200 MG/20 ML VIAL IVPUSH ONE (01:11)
[2024-01-18] MEDS: PROPOFOL 1,000,000 MCG/100 ML VIAL IVPB SCH (01:11)
[2024-01-18] MEDS: ALBUTEROL SO4 2.5/IPRATROPIUM 0.5 INH SOL 3 ML VIAL.NEB. NEB SCH ×2 (01:30→20:00)
[2024-01-18] MEDS: FENTANYL NS IVPB 500 MCG/100 ML BAG IVPB SCH (01:52)
[2024-01-18 06:49] LABS: ARTERIAL BLD GAS O2 SATURATION 99.8 % (95-98); ARTERIAL BLOOD GAS BASE EXCESS 3.5 mmol/L (-2-2); ARTERIAL BLOOD GAS PO2 350.7 mmHg (80-100); ARTERIAL BLOOD GAS pH 7.454 (7.350-7.450)
[2024-01-18 06:57] LABS: ALLENS TEST POSITIVE
[2024-01-18 06:58] LABS: VENT MODE A/C; VENT RATE 24
[2024-01-18 08:08] LABS: BASO % 0.4 % (0-2.0); EOS % 0.8 % (0-4.5); HEMATOCRIT 28.8 % (32.4-45.2); HEMOGLOBIN 9.3 GM/dL (10.7-15.3); LYMPH % 28.8 % (8-40); MCHC 32.3 g/dl (32.0-36.0); MEAN CELL VOLUME 83.5 fl (80-96); MEAN PLT VOLUME 8.2 fl (7.5-11.1); PLATELET COUNT 279 10^3/uL (134-434); RBC 3.45 M/mm3 (3.60-5.2); RDW 15.6 % (11.6-15.6); WHITE BLOOD COUNT 9.3 K/mm3 (4.0-10.0)
[2024-01-18 08:30] LABS: CHLORIDE 108 mmol/L (98-107); POTASSIUM 3.8 mmol/L (3.5-5.1); SODIUM 147 mmol/L (136-145)
[2024-01-18 08:34] LABS: ALBUMIN 2.2 g/dl (3.4-5.0); ANION GAP 4 mmol/L (4-13); BLOOD UREA NITROGEN 8.6 mg/dL (7-18); CALCIUM 8.1 mg/dL (8.5-10.1); CO2 34 mmol/L (21-32); GLUCOSE,RANDOM 113 mg/dL (74-106)
[2024-01-18 08:37] LABS: CREATININE 0.3 mg/dL (0.55-1.3); SGOT/AST 31 U/L (15-37); SGPT/ALT 22 U/L (13-61)
[2024-01-18 08:39] LABS: BILIRUBIN,TOTAL 0.3 mg/dL (0.2-1); TOT PROT 5.7 g/dl (6.4-8.2)
[2024-01-18 08:40] LABS: ALK PHOS 60 U/L (45-117)
[2024-01-18 08:56] LABS: PHOSPHOROUS 1.1 mg/dL (2.5-4.9)
[2024-01-18] MEDS: MIDAZOLAM IN 0.9 % SOD.CHLORID 100 MG/100 ML PLAST..BAG IVPB SCH (11:41)
[2024-01-18] MEDS: POTASSIUM PHOSPHATE 30 MM in SODIUM CHLORIDE 500 ML IVPB ONE (12:55)
[2024-01-18] MEDS ORDERED: POLYETHYLENE GLYCOL (HEALTHYLAX) 3350 17 GM PACKET PO SCH (13:15)
[2024-01-18] MEDS: POLYETHYLENE GLYCOL (HEALTHYLAX) 3350 17 GM PACKET NGT SCH (15:24)
[2024-01-18] MEDS: SENNOSIDES 8.8 MG/5 ML SYRUP NGT SCH (22:29)
[2024-01-19 07:33] LABS: HEMATOCRIT 26.5 % (32.4-45.2); HEMOGLOBIN 8.6 GM/dL (10.7-15.3); MCH 26.6 pg (25.7-33.7); MCHC 32.5 g/dl (32.0-36.0); MEAN CELL VOLUME 81.8 fl (80-96); MEAN PLT VOLUME 7.8 fl (7.5-11.1); PLATELET COUNT 261 10^3/uL (134-434); POTASSIUM 3.8 mmol/L (3.5-5.1); RBC 3.24 M/mm3 (3.60-5.2); RDW 15.7 % (11.6-15.6); WHITE BLOOD COUNT 8.5 K/mm3 (4.0-10.0)
[2024-01-19 07:37] LABS: BLOOD UREA NITROGEN 8.7 mg/dL (7-18)
[2024-01-19 07:39] LABS: CALCIUM 7.6 mg/dL (8.5-10.1)
[2024-01-19 07:40] LABS: CREATININE 0.3 mg/dL (0.55-1.3); MAGNESIUM 1.6 mg/dL (1.8-2.4); PHOSPHOROUS 2.5 mg/dL (2.5-4.9)
[2024-01-19] MEDS: NAPH,MB-DB/K PH,MBDB POWDER PACKET PO ONE (08:00)
[2024-01-19] MEDS: MIDAZOLAM 100 MG in SODIUM CHLORIDE 100 ML IVPB SCH (08:00)
[2024-01-19] MEDS: BISACODYL 10 MG SUPP.RECT PR ONE (08:28)
[2024-01-19] MEDS: MAGNESIUM SULF 50% (8.12 MEQ/2 ML-1 GM VIAL) IVPB ONE (08:28)
[2024-01-19] MEDS: POLYETHYLENE GLYCOL (HEALTHYLAX) 3350 17 GM PACKET NGT SCH (14:02)
[2024-01-20 08:00] LABS: HEMATOCRIT 29.6 % (32.4-45.2); HEMOGLOBIN 9.5 GM/dL (10.7-15.3); MCH 26.2 pg (25.7-33.7); MEAN CELL VOLUME 81.9 fl (80-96); MEAN PLT VOLUME 8.1 fl (7.5-11.1); PLATELET COUNT 311 10^3/uL (134-434); RBC 3.61 M/mm3 (3.60-5.2); RDW 15.8 % (11.6-15.6); WHITE BLOOD COUNT 11.8 K/mm3 (4.0-10.0)
[2024-01-20 08:26] LABS: POTASSIUM 3.9 mmol/L (3.5-5.1)
[2024-01-20 08:29] LABS: BLOOD UREA NITROGEN 7.1 mg/dL (7-18)
[2024-01-20 08:33] LABS: CREATININE 0.2 mg/dL (0.55-1.3); PHOSPHOROUS 2.6 mg/dL (2.5-4.9)
[2024-01-20 08:35] LABS: BILIRUBIN,TOTAL 0.4 mg/dL (0.2-1); TOT PROT 5.6 g/dl (6.4-8.2)
[2024-01-20] MEDS: LACTATED RINGERS SOLUTION 1,000 ML/1,000 ML INFUS.BAG IV STA (09:50)
[2024-01-20] MEDS: POTASSIUM CHLORIDE ORAL LIQUID 20 MEQ/15 ML NGT ONE (09:50)
[2024-01-21 07:23] LABS: HEMATOCRIT 25.8 % (32.4-45.2); HEMOGLOBIN 8.5 GM/dL (10.7-15.3); MCH 26.6 pg (25.7-33.7); MCHC 32.8 g/dl (32.0-36.0); MEAN PLT VOLUME 7.8 fl (7.5-11.1); PLATELET COUNT 289 10^3/uL (134-434); RBC 3.19 M/mm3 (3.60-5.2); RDW 15.7 % (11.6-15.6); WHITE BLOOD COUNT 6.5 K/mm3 (4.0-10.0)
[2024-01-21 07:46] LABS: POTASSIUM 3.9 mmol/L (3.5-5.1)
[2024-01-21 07:50] LABS: CALCIUM 7.6 mg/dL (8.5-10.1); MAGNESIUM 1.7 mg/dL (1.8-2.4)
[2024-01-21 07:51] LABS: ALBUMIN 1.6 g/dl (3.4-5.0); BLOOD UREA NITROGEN 7.7 mg/dL (7-18)
[2024-01-21 07:53] LABS: CREATININE 0.2 mg/dL (0.55-1.3); PHOSPHOROUS 2.6 mg/dL (2.5-4.9)
[2024-01-21 07:54] LABS: BILIRUBIN,TOTAL 0.2 mg/dL (0.2-1)
[2024-01-21 07:55] LABS: TOT PROT 4.5 g/dl (6.4-8.2)
[2024-01-21] MEDS: FUROSEMIDE 40 MG/4 ML INJECTABLE VIAL IVPUSH ONE (10:32)
[2024-01-21] MEDS: METOCLOPRAMIDE HCL INJECTION 10 MG/2 ML VIAL IVPUSH ONE (10:32)
[2024-01-21] MEDS: methylPREDNISolone NA SUCC 40 MG/1 ML VIAL IVPUSH SCH (10:32)
[2024-01-21] MEDS: MAGNESIUM 1GM/D5W - 1 GM/100 ML IVPB IVPB ONE (11:27)
[2024-01-22 08:10] LABS: HEMATOCRIT 27.7 % (32.4-45.2); MCH 26.3 pg (25.7-33.7); MCHC 32.5 g/dl (32.0-36.0); MEAN CELL VOLUME 80.8 fl (80-96); MEAN PLT VOLUME 8.1 fl (7.5-11.1); PLATELET COUNT 334 10^3/uL (134-434); RBC 3.43 M/mm3 (3.60-5.2); RDW 15.4 % (11.6-15.6); WHITE BLOOD COUNT 6.2 K/mm3 (4.0-10.0)
[2024-01-22 08:17] LABS: POTASSIUM 4.5 mmol/L (3.5-5.1)
[2024-01-22 08:26] LABS: BLOOD UREA NITROGEN 9.2 mg/dL (7-18); CALCIUM 7.4 mg/dL (8.5-10.1); MAGNESIUM 1.7 mg/dL (1.8-2.4)
[2024-01-22 08:29] LABS: CREATININE 0.3 mg/dL (0.55-1.3); PHOSPHOROUS 3.4 mg/dL (2.5-4.9)
[2024-01-22] MEDS: MAGNESIUM 2GM/50ML STERILE WATER IVPB IVPB ONE (13:27)
[2024-01-22] MEDS ORDERED: CEFEPIME HCL 1 GM VIAL (RESTRICTED TO ID) ONE (23:07)
[2024-01-23 07:31] LABS: BASO % 0.1 % (0-2.0); HEMATOCRIT 28.7 % (32.4-45.2); HEMOGLOBIN 9.3 GM/dL (10.7-15.3); LYMPH % 11.8 % (8-40); MCH 26.4 pg (25.7-33.7); MCHC 32.3 g/dl (32.0-36.0); MEAN CELL VOLUME 81.7 fl (80-96); MEAN PLT VOLUME 7.9 fl (7.5-11.1); MONO % 5.8 % (3.8-10.2); NEUT % 82.3 % (42.8-82.8); PLATELET COUNT 362 10^3/uL (134-434); RBC 3.51 M/mm3 (3.60-5.2); RDW 15.7 % (11.6-15.6); WHITE BLOOD COUNT 8.9 K/mm3 (4.0-10.0)
[2024-01-23 07:39] LABS: POTASSIUM 4.5 mmol/L (3.5-5.1)
[2024-01-23 07:46] LABS: CALCIUM 7.6 mg/dL (8.5-10.1); MAGNESIUM 2.2 mg/dL (1.8-2.4)
[2024-01-23 07:47] LABS: BLOOD UREA NITROGEN 9.4 mg/dL (7-18)
[2024-01-23 07:48] LABS: CREATININE 0.3 mg/dL (0.55-1.3); PHOSPHOROUS 2.4 mg/dL (2.5-4.9)
[2024-01-23] MEDS: NAPH,MB-DB/K PH,MBDB POWDER PACKET GT ONE (08:44)
[2024-01-23] MEDS: AMINO ACIDS/PROTEIN HYDROLYS 30 ML LIQUID.PKT PO SCH (08:44)
[2024-01-23] MEDS ORDERED: CEFEPIME HCL 1 GM VIAL (RESTRICTED TO ID) IVPB SCH (11:57)
[2024-01-23] MEDS ORDERED: MIDAZOLAM 100 MG/100 ML MG IVPB SCH (12:15)
[2024-01-23] MEDS: MIDAZOLAM IN 0.9 % SOD.CHLORID 100 MG/100 ML PLAST..BAG IVPB SCH (12:31)
[2024-01-23] MEDS: CEFEPIME 1 GM in DEXTROSE 5%-WATER 100 ML IVPB SCH (14:28)
[2024-01-24 08:06] LABS: POTASSIUM 5.4 mmol/L (3.5-5.1)
[2024-01-24 08:10] LABS: CALCIUM 7.9 mg/dL (8.5-10.1); HEMATOCRIT 30.2 % (32.4-45.2); HEMOGLOBIN 9.7 GM/dL (10.7-15.3); MCH 26.1 pg (25.7-33.7); MCHC 32.2 g/dl (32.0-36.0); MEAN PLT VOLUME 8.3 fl (7.5-11.1); PLATELET COUNT 374 10^3/uL (134-434); RBC 3.72 M/mm3 (3.60-5.2); RDW 16.1 % (11.6-15.6); WHITE BLOOD COUNT 7.7 K/mm3 (4.0-10.0)
[2024-01-24 08:11] LABS: ALBUMIN 1.8 g/dl (3.4-5.0); BLOOD UREA NITROGEN 12.8 mg/dL (7-18)
[2024-01-24 08:13] LABS: CREATININE 0.3 mg/dL (0.55-1.3); PHOSPHOROUS 2.4 mg/dL (2.5-4.9)
[2024-01-24 08:15] LABS: BILIRUBIN,TOTAL 0.2 mg/dL (0.2-1); TOT PROT 5.3 g/dl (6.4-8.2)
[2024-01-24] MEDS ORDERED: SODIUM BICARBONATE 8.4% - 75 MEQ in SODIUM CHLORIDE 0.45% 950 ML IV SCH (09:30)
[2024-01-24] MEDS: SODIUM ZIRCONIUM CYCLOSILICATE (LOKELMA) 5 GM PACKET GT ONE (10:10)
[2024-01-24] MEDS: FUROSEMIDE 40 MG/4 ML INJECTABLE VIAL IVPUSH ONE (10:12)
[2024-01-24 13:55] LABS: POTASSIUM 5.2 mmol/L (3.5-5.1)
[2024-01-24 13:57] LABS: BLOOD UREA NITROGEN 13.1 mg/dL (7-18); CALCIUM 8.1 mg/dL (8.5-10.1)
[2024-01-24 14:00] LABS: CREATININE 0.2 mg/dL (0.55-1.3)
[2024-01-25 07:32] LABS: HEMATOCRIT 29.6 % (32.4-45.2); HEMOGLOBIN 9.5 GM/dL (10.7-15.3); MCH 26.2 pg (25.7-33.7); MCHC 32.1 g/dl (32.0-36.0); MEAN CELL VOLUME 81.7 fl (80-96); MEAN PLT VOLUME 8.2 fl (7.5-11.1); PLATELET COUNT 339 10^3/uL (134-434); RBC 3.62 M/mm3 (3.60-5.2); RDW 15.4 % (11.6-15.6); WHITE BLOOD COUNT 9.5 K/mm3 (4.0-10.0)
[2024-01-25 07:43] LABS: POTASSIUM 5.2 mmol/L (3.5-5.1)
[2024-01-25 07:50] LABS: BLOOD UREA NITROGEN 15.2 mg/dL (7-18); CALCIUM 8.1 mg/dL (8.5-10.1)
[2024-01-25 07:51] LABS: MAGNESIUM 1.8 mg/dL (1.8-2.4)
[2024-01-25 07:53] LABS: CREATININE 0.3 mg/dL (0.55-1.3); PHOSPHOROUS 2.5 mg/dL (2.5-4.9)
[2024-01-26 07:14] LABS: HEMATOCRIT 27.7 % (32.4-45.2); MCH 26.6 pg (25.7-33.7); MCHC 32.7 g/dl (32.0-36.0); MEAN CELL VOLUME 81.4 fl (80-96); MEAN PLT VOLUME 8.5 fl (7.5-11.1); PLATELET COUNT 339 10^3/uL (134-434); RDW 15.2 % (11.6-15.6); WHITE BLOOD COUNT 9.5 K/mm3 (4.0-10.0)
[2024-01-26 07:27] LABS: POTASSIUM 5.1 mmol/L (3.5-5.1)
[2024-01-26 07:29] LABS: CALCIUM 8.4 mg/dL (8.5-10.1)
[2024-01-26 07:31] LABS: MAGNESIUM 1.7 mg/dL (1.8-2.4)
[2024-01-26 07:33] LABS: CREATININE 0.3 mg/dL (0.55-1.3); PHOSPHOROUS 2.8 mg/dL (2.5-4.9)
[2024-01-26] MEDS: MAGNESIUM SULFATE IN WATER 2 GM/50 ML IVPB IVPB ONE (09:24)
[2024-01-26] MEDS: FUROSEMIDE 40 MG/4 ML INJECTABLE VIAL IVPUSH ONE (12:11)
[2024-01-26] MEDS: methylPREDNISolone NA SUCC 40 MG/1 ML VIAL IVPUSH SCH (12:12)
[2024-01-27 08:18] LABS: HEMATOCRIT 27.6 % (32.4-45.2); HEMOGLOBIN 8.9 GM/dL (10.7-15.3); MCHC 32.4 g/dl (32.0-36.0); MEAN CELL VOLUME 80.4 fl (80-96); MEAN PLT VOLUME 8.5 fl (7.5-11.1); PLATELET COUNT 317 10^3/uL (134-434); RBC 3.43 M/mm3 (3.60-5.2); RDW 15.7 % (11.6-15.6); WHITE BLOOD COUNT 10.3 K/mm3 (4.0-10.0)
[2024-01-27 08:37] LABS: POTASSIUM 4.6 mmol/L (3.5-5.1)
[2024-01-27 08:41] LABS: CREATININE 0.3 mg/dL (0.55-1.3)
[2024-01-27 08:42] LABS: BLOOD UREA NITROGEN 15.8 mg/dL (7-18); CALCIUM 8.2 mg/dL (8.5-10.1)
[2024-01-27 08:43] LABS: MAGNESIUM 1.8 mg/dL (1.8-2.4)
[2024-01-27] MEDS: HALOPERIDOL DECANOATE 100 MG/ML IM SCH (13:18)
[2024-01-28] MEDS ORDERED: BUDESONIDE 0.5 MG/2 ML INH SUSP VIAL NEB ONE (04:19)
[2024-01-28] MEDS: FUROSEMIDE INJECTION 100 MG in DEXTROSE 5%-WATER - 90 ML IVPB SCH (18:04)
[2024-01-29 10:07] LABS: HEMATOCRIT 29.4 % (32.4-45.2); HEMOGLOBIN 9.7 GM/dL (10.7-15.3); MCH 26.5 pg (25.7-33.7); MCHC 33.1 g/dl (32.0-36.0); MEAN CELL VOLUME 80.1 fl (80-96); MEAN PLT VOLUME 8.4 fl (7.5-11.1); PLATELET COUNT 326 10^3/uL (134-434); RBC 3.68 M/mm3 (3.60-5.2); RDW 15.6 % (11.6-15.6); WHITE BLOOD COUNT 10.8 K/mm3 (4.0-10.0)
[2024-01-29 10:14] LABS: POTASSIUM 4.1 mmol/L (3.5-5.1)
[2024-01-29 10:15] LABS: CALCIUM 8.5 mg/dL (8.5-10.1)
[2024-01-29 10:16] LABS: BLOOD UREA NITROGEN 16.8 mg/dL (7-18); MAGNESIUM 1.5 mg/dL (1.8-2.4)
[2024-01-29 10:19] LABS: CREATININE 0.4 mg/dL (0.55-1.3); PHOSPHOROUS 4.1 mg/dL (2.5-4.9)
[2024-01-30 08:18] LABS: INR 1.26 (0.83-1.09); PROTHROMBIN TIME (PATIENT) 14.4 SEC (9.7-13.0)
[2024-01-30 08:19] LABS: ACTIVATED PTT 29.1 SECONDS (25.2-36.5)
[2024-01-30] MEDS ORDERED: PROPOFOL 1,000,000 MCG/100 ML VIAL IVPB SCH (09:15)
[2024-01-30] MEDS: ROCURONIUM BROMIDE 50 MG/5 ML VIAL IVPUSH ONE (09:18)
[2024-01-30] MEDS: NOREPINEPHRINE 0.9 % NACL 8 MG/250 ML BAG IVPB SCH (09:20)
[2024-01-30] MEDS: SODIUM CHLORIDE 1,000 ML IV SCH (15:28)
[2024-01-31 07:50] LABS: POTASSIUM 3.8 mmol/L (3.5-5.1)
[2024-01-31 07:52] LABS: CALCIUM 8.3 mg/dL (8.5-10.1)
[2024-01-31 07:53] LABS: BLOOD UREA NITROGEN 16.9 mg/dL (7-18); MAGNESIUM 1.6 mg/dL (1.8-2.4)
[2024-01-31 07:55] LABS: PHOSPHOROUS 3.2 mg/dL (2.5-4.9)
[2024-01-31 07:56] LABS: CREATININE 0.4 mg/dL (0.55-1.3)
[2024-01-31 08:04] LABS: HEMATOCRIT 29.1 % (32.4-45.2); HEMOGLOBIN 9.5 GM/dL (10.7-15.3); MCH 26.4 pg (25.7-33.7); MCHC 32.5 g/dl (32.0-36.0); MEAN CELL VOLUME 81.1 fl (80-96); MEAN PLT VOLUME 10.1 fl (7.5-11.1); PLATELET COUNT 153 10^3/uL (134-434); RBC 3.59 M/mm3 (3.60-5.2); RDW 15.6 % (11.6-15.6); WHITE BLOOD COUNT 10.7 K/mm3 (4.0-10.0)
[2024-01-31] MEDS: MAGNESIUM SULFATE IN WATER 2 GM/50 ML IVPB IVPB ONE (08:44)
[2024-01-31] MEDS: ESCITALOPRAM OXALATE 20 MG TABLET PO SCH (10:19)
[2024-02-01 07:22] LABS: POTASSIUM 3.5 mmol/L (3.5-5.1)
[2024-02-01 07:24] LABS: BLOOD UREA NITROGEN 20.2 mg/dL (7-18); CALCIUM 8.7 mg/dL (8.5-10.1); MAGNESIUM 2.2 mg/dL (1.8-2.4)
[2024-02-01 07:26] LABS: HEMATOCRIT 30.3 % (32.4-45.2); HEMOGLOBIN 9.4 GM/dL (10.7-15.3); MCH 25.9 pg (25.7-33.7); MCHC 31.1 g/dl (32.0-36.0); MEAN CELL VOLUME 83.2 fl (80-96); MEAN PLT VOLUME 10.1 fl (7.5-11.1); PLATELET COUNT 250 10^3/uL (134-434); RBC 3.64 M/mm3 (3.60-5.2); RDW 15.6 % (11.6-15.6); WHITE BLOOD COUNT 12.7 K/mm3 (4.0-10.0)
[2024-02-01 07:28] LABS: CREATININE 0.4 mg/dL (0.55-1.3); PHOSPHOROUS 2.6 mg/dL (2.5-4.9)
[2024-02-01] MEDS: morphine SULFATE 4 MG/ML VIAL IM PRN (14:18)
[2024-02-01] MEDS: METOPROLOL TARTRATE 5 MG/5 ML VIAL IVPUSH ONE (14:46)
[2024-02-01] MEDS: METOPROLOL TARTRATE 25 MG TABLET (FP) PO SCH (21:08)
[2024-02-01] MEDS ORDERED: ACETAMINOPHEN 325 MG TABLET (FP) PO PRN (22:22)
[2024-02-01] MEDS ORDERED: morphine SULFATE 4 MG/ML VIAL IM PRN (22:22)
[2024-02-02] MEDS: POLYETHYLENE GLYCOL (HEALTHYLAX) 3350 17 GM PACKET NGT SCH (06:48)
[2024-02-02] MEDS ORDERED: AMINO ACIDS/PROTEIN HYDROLYS 30 ML LIQUID.PKT PO SCH (08:00)
[2024-02-02] MEDS: ALBUTEROL SO4 2.5/IPRATROPIUM 0.5 INH SOL 3 ML VIAL.NEB. NEB SCH (08:15)
[2024-02-02] MEDS: FOLIC ACID 1 MG TABLET (FP) GT SCH (09:38)
[2024-02-02] MEDS: CLOPIDOGREL BISULFATE 75 MG TABLET (FP) GT SCH (09:38)
[2024-02-02] MEDS: ESCITALOPRAM OXALATE 20 MG TABLET GT SCH (09:39)
[2024-02-02] MEDS: METOPROLOL TARTRATE 25 MG TABLET (FP) GT SCH (09:39)
[2024-02-02] MEDS: LACTATED RINGERS SOLUTION 1,000 ML/1,000 ML INFUS.BAG IV SCH (09:40)
[2024-02-02] MEDS: PANTOPRAZOLE SODIUM 40 MG VIAL IVPUSH SCH (09:40)
[2024-02-02] MEDS: VALPROATE SODIUM 250 MG/5 ML UNIT DOSE CUP GT SCH (09:41)
[2024-02-02] MEDS: levETIRAcetam 500 MG/5 ML INJECTION VIAL IVPB SCH (09:41)
[2024-02-02] MEDS: AMINO ACIDS/PROTEIN HYDROLYS 30 ML LIQUID.PKT GT SCH (09:41)
[2024-02-02] MEDS ORDERED: CLOPIDOGREL BISULFATE 75 MG TABLET (FP) PO SCH (10:00)
[2024-02-02] MEDS ORDERED: ESCITALOPRAM OXALATE 20 MG TABLET PO SCH (10:00)
[2024-02-02] MEDS ORDERED: FOLIC ACID 1 MG TABLET (FP) PO SCH (10:00)
[2024-02-02] MEDS: THIAMINE HCL 200 MG/2 ML VIAL IVPB SCH (10:14)
[2024-02-02 10:32] LABS: HEMATOCRIT 27.1 % (32.4-45.2); HEMOGLOBIN 8.8 GM/dL (10.7-15.3); MCH 26.3 pg (25.7-33.7); MCHC 32.4 g/dl (32.0-36.0); MEAN CELL VOLUME 81.1 fl (80-96); MEAN PLT VOLUME 9.2 fl (7.5-11.1); PLATELET COUNT 306 10^3/uL (134-434); RBC 3.34 M/mm3 (3.60-5.2); RDW 15.3 % (11.6-15.6); WHITE BLOOD COUNT 13.6 K/mm3 (4.0-10.0)
[2024-02-02 11:20] LABS: POTASSIUM 3.4 mmol/L (3.5-5.1)
[2024-02-02 11:22] LABS: CALCIUM 8.6 mg/dL (8.5-10.1); MAGNESIUM 2.1 mg/dL (1.8-2.4)
[2024-02-02 11:25] LABS: CREATININE 0.2 mg/dL (0.55-1.3)
[2024-02-02 11:26] LABS: PHOSPHOROUS 2.2 mg/dL (2.5-4.9)
[2024-02-02] MEDS ORDERED: LABETALOL HCL 100 MG TABLET (FP) NGT ONE (14:15)
[2024-02-02] MEDS: ACETAMINOPHEN 650 MG/20.3 ML ORAL SOLUTION (CUPS) GT PRN (14:35)
[2024-02-02] MEDS: AMINO ACIDS 4.25%/D5W 1,000 ML IV SCH ×2 (15:30→18:25)
[2024-02-02 16:12] LABS: BASO % 0.1 % (0-2.0); HEMATOCRIT 28.9 % (32.4-45.2); HEMOGLOBIN 9.3 GM/dL (10.7-15.3); LYMPH % 5.8 % (8-40); MEAN CELL VOLUME 81.1 fl (80-96); MEAN PLT VOLUME 9.4 fl (7.5-11.1); MONO % 9.8 % (3.8-10.2); NEUT % 84.3 % (42.8-82.8); PLATELET COUNT 309 10^3/uL (134-434); RBC 3.57 M/mm3 (3.60-5.2); RDW 15.4 % (11.6-15.6); WHITE BLOOD COUNT 15.6 K/mm3 (4.0-10.0)
[2024-02-02] MEDS: LABETALOL HCL 100 MG TABLET (FP) NGT ONE (16:36)
[2024-02-02 16:40] LABS: POTASSIUM 3.3 mmol/L (3.5-5.1)
[2024-02-02 16:42] LABS: CALCIUM 8.4 mg/dL (8.5-10.1)
[2024-02-02 16:43] LABS: ALBUMIN 2.1 g/dl (3.4-5.0)
[2024-02-02] MEDS: LABETALOL HCL 100 MG TABLET (FP) GT ONE (16:43)
[2024-02-02 16:47] LABS: BILIRUBIN,TOTAL 0.6 mg/dL (0.2-1); CREATININE 0.2 mg/dL (0.55-1.3)
[2024-02-02 16:48] LABS: TOT PROT 6.6 g/dl (6.4-8.2)
[2024-02-02] MEDS: CEFEPIME 2 GM in DEXTROSE 5%-WATER 100 ML IVPB SCH (16:49)
[2024-02-02] MEDS: NYSTATIN 100,000 UNIT/GM TOPICAL CREAM 15 GM TUBE TP SCH (17:22)
[2024-02-02] MEDS: PIPERACILLIN/TAZOB 4.5 GM 4.5 GM in DEXTROSE 5%-WATER 100 ML IVPB SCH (17:34)
[2024-02-02] MEDS: MIRTAZAPINE 15 MG TABLET (FP) GT SCH (21:49)
[2024-02-02] MEDS: SENNOSIDES 8.8 MG/5 ML SYRUP NGT SCH (21:50)
[2024-02-02] MEDS: ATORVASTATIN CA 40 MG TABLET (FP) GT SCH (21:51)
[2024-02-02] MEDS ORDERED: MIRTAZAPINE 15 MG TABLET (FP) PO SCH (22:00)
[2024-02-02] MEDS ORDERED: ATORVASTATIN CA 40 MG TABLET (FP) PO SCH (22:00)
[2024-02-02] MEDS ORDERED: CHLORHEXIDINE GLUCONATE 4% CLEANSER FOR DECOLONIZATION TP SCH (22:00)
[2024-02-03] MEDS: hydrALAZINE HCL 20 MG/ML VIAL IVPB ONE (05:09)
[2024-02-03] MEDS: LABETALOL HCL 100 MG TABLET (FP) NGT ONE (06:26)
[2024-02-03] MEDS: hydrALAZINE HCL 20 MG/ML VIAL IVPUSH ONE (06:52)
[2024-02-03 09:33] LABS: HEMATOCRIT 29.5 % (32.4-45.2); HEMOGLOBIN 9.6 GM/dL (10.7-15.3); MCHC 32.6 g/dl (32.0-36.0); MEAN CELL VOLUME 79.8 fl (80-96); MEAN PLT VOLUME 8.9 fl (7.5-11.1); PLATELET COUNT 374 10^3/uL (134-434); RDW 15.4 % (11.6-15.6); WHITE BLOOD COUNT 13.9 K/mm3 (4.0-10.0)
[2024-02-03 09:38] LABS: INR 1.38 (0.83-1.09); PROTHROMBIN TIME (PATIENT) 15.7 SEC (9.7-13.0)
[2024-02-03 09:53] LABS: CHLORIDE 97 mmol/L (98-107); SODIUM 138 mmol/L (136-145)
[2024-02-03 09:55] LABS: POTASSIUM 2.6 mmol/L (3.5-5.1)
[2024-02-03 10:05] LABS: ALBUMIN 2.1 g/dl (3.4-5.0); ANION GAP 7 mmol/L (4-13); BLOOD UREA NITROGEN 18.6 mg/dL (7-18); CALCIUM 8.9 mg/dL (8.5-10.1); CO2 35 mmol/L (21-32); GLUCOSE,RANDOM 174 mg/dL (74-106); MAGNESIUM 1.9 mg/dL (1.8-2.4)
[2024-02-03] MEDS ORDERED: LABETALOL HCL 200 MG TABLET (FP) NGT PRN (10:05)
[2024-02-03 10:07] LABS: CREATININE 0.3 mg/dL (0.55-1.3); PHOSPHOROUS 1.7 mg/dL (2.5-4.9); SGOT/AST 54 U/L (15-37); SGPT/ALT 57 U/L (13-61)
[2024-02-03 10:08] LABS: TOT PROT 6.6 g/dl (6.4-8.2)
[2024-02-03 10:09] LABS: BILIRUBIN,TOTAL 0.4 mg/dL (0.2-1)
[2024-02-03 10:10] LABS: ALK PHOS 101 U/L (45-117)
[2024-02-03] MEDS: POTASSIUM CHLORIDE ORAL LIQUID 20 MEQ/15 ML NGT SCH (10:53)
[2024-02-03] MEDS: LABETALOL HCL 5 MG/1 ML (100MG/20 ML VIAL) IVPUSH ONE (11:13)
[2024-02-03] MEDS: KCL 10 MEQ IVPB 10 MEQ/100 ML INFUS.BAG IVPB SCH (11:42)
[2024-02-03] MEDS: LABETALOL HCL 200 MG TABLET (FP) NGT SCH (11:43)
[2024-02-03] MEDS: amLODIPine BESYLATE 10 MG TABLET (FP) PO ONE (18:04)
[2024-02-03] MEDS: LABETALOL HCL 100 MG TABLET (FP) NGT SCH (23:44)
[2024-02-04] MEDS ORDERED: VALPROATE SODIUM 500 MG/5 ML VIAL IVPB ONE (03:13)
[2024-02-04] MEDS: VALPROATE SODIUM INJECTION 500 MG in SODIUM CHLORIDE 100 ML IVPB ONE (04:10)
[2024-02-04 09:22] LABS: HEMATOCRIT 27.9 % (32.4-45.2); HEMOGLOBIN 9.2 GM/dL (10.7-15.3); MCH 26.4 pg (25.7-33.7); MEAN PLT VOLUME 8.8 fl (7.5-11.1); PLATELET COUNT 406 10^3/uL (134-434); RBC 3.49 M/mm3 (3.60-5.2); RDW 15.3 % (11.6-15.6); WHITE BLOOD COUNT 12.5 K/mm3 (4.0-10.0)
[2024-02-04 09:38] LABS: POTASSIUM 3.2 mmol/L (3.5-5.1)
[2024-02-04 09:42] LABS: ALBUMIN 1.8 g/dl (3.4-5.0)
[2024-02-04 09:43] LABS: BLOOD UREA NITROGEN 19.4 mg/dL (7-18); CALCIUM 8.4 mg/dL (8.5-10.1); MAGNESIUM 1.7 mg/dL (1.8-2.4)
[2024-02-04 09:45] LABS: CREATININE 0.3 mg/dL (0.55-1.3)
[2024-02-04 09:46] LABS: PHOSPHOROUS 1.6 mg/dL (2.5-4.9)
[2024-02-04 09:47] LABS: BILIRUBIN,TOTAL 0.4 mg/dL (0.2-1); TOT PROT 5.8 g/dl (6.4-8.2)
[2024-02-04] MEDS: POTASSIUM CHLORIDE ORAL LIQUID 20 MEQ/15 ML NGT ONE (11:47)
[2024-02-04] MEDS: amLODIPine BESYLATE 10 MG TABLET (FP) PO SCH (11:47)
[2024-02-04] MEDS: ENOXAPARIN NA (PORCINE) 40 MG/0.4 ML DISP.SYRIN SQ SCH (11:47)
[2024-02-04] MEDS: CEFEPIME 2 GM in DEXTROSE 5%-WATER 100 ML IVPB SCH (12:41)
[2024-02-04] MEDS: LABETALOL HCL 100 MG TABLET (FP) PO ONE (12:41)
[2024-02-04] MEDS: MAGNESIUM SULF 50% (8.12 MEQ/2 ML-1 GM VIAL) IVPB ONE (13:43)
[2024-02-04] MEDS: POTASSIUM PHOSPHATE 15 MM in SODIUM CHLORIDE 250 ML IVPB ONE (15:15)
[2024-02-04] MEDS: LABETALOL HCL 200 MG TABLET (FP) NGT ONE (15:15)
[2024-02-04] MEDS: LABETALOL HCL 200 MG TABLET (FP) NGT SCH (20:46)
[2024-02-04] MEDS: VALPROATE SODIUM 250 MG/5 ML UNIT DOSE CUP NGT SCH (22:03)
[2024-02-05] MEDS: amLODIPine BESYLATE 10 MG TABLET (FP) NGT SCH (09:46)
[2024-02-05 10:17] LABS: HEMATOCRIT 24.5 % (32.4-45.2); HEMOGLOBIN 8.1 GM/dL (10.7-15.3); MCH 26.6 pg (25.7-33.7); MCHC 32.9 g/dl (32.0-36.0); MEAN CELL VOLUME 80.7 fl (80-96); MEAN PLT VOLUME 8.7 fl (7.5-11.1); PLATELET COUNT 334 10^3/uL (134-434); RBC 3.04 M/mm3 (3.60-5.2); RDW 15.2 % (11.6-15.6); WHITE BLOOD COUNT 10.2 K/mm3 (4.0-10.0)
[2024-02-05 10:24] LABS: POTASSIUM 3.4 mmol/L (3.5-5.1)
[2024-02-05 10:30] LABS: ALBUMIN 1.9 g/dl (3.4-5.0); BLOOD UREA NITROGEN 17.9 mg/dL (7-18); MAGNESIUM 1.7 mg/dL (1.8-2.4)
[2024-02-05 10:33] LABS: CREATININE 0.2 mg/dL (0.55-1.3)
[2024-02-05 10:35] LABS: TOT PROT 5.6 g/dl (6.4-8.2)
[2024-02-05 11:01] LABS: BILIRUBIN,TOTAL 0.4 mg/dL (0.2-1)
[2024-02-05] MEDS: MAGNESIUM 1GM/D5W 100ML - 100 ML IVPB IVPB ONE (12:23)
[2024-02-05] MEDS: POTASSIUM PHOSPHATE 15 MM in SODIUM CHLORIDE 250 ML IVPB ONE (14:18)
[2024-02-06 10:50] LABS: HEMOGLOBIN 7.8 GM/dL (10.7-15.3); MCH 26.2 pg (25.7-33.7); MCHC 32.5 g/dl (32.0-36.0); MEAN CELL VOLUME 80.5 fl (80-96); MEAN PLT VOLUME 8.2 fl (7.5-11.1); PLATELET COUNT 298 10^3/uL (134-434); RBC 2.98 M/mm3 (3.60-5.2); RDW 14.8 % (11.6-15.6); WHITE BLOOD COUNT 6.7 K/mm3 (4.0-10.0)
[2024-02-06 11:00] LABS: POTASSIUM 3.8 mmol/L (3.5-5.1)
[2024-02-06 11:04] LABS: CALCIUM 7.6 mg/dL (8.5-10.1)
[2024-02-06 11:05] LABS: ALBUMIN 1.7 g/dl (3.4-5.0); BLOOD UREA NITROGEN 20.9 mg/dL (7-18); MAGNESIUM 1.7 mg/dL (1.8-2.4)
[2024-02-06 11:08] LABS: CREATININE 0.2 mg/dL (0.55-1.3)
[2024-02-06 11:09] LABS: BILIRUBIN,TOTAL 0.4 mg/dL (0.2-1); TOT PROT 5.2 g/dl (6.4-8.2)
[2024-02-06] MEDS: MAGNESIUM 2GM/50ML STERILE WATER IVPB IVPB ONE (13:12)
[2024-02-06] MEDS: POTASSIUM PHOSPHATE 30 MM in DEXTROSE 5%-WATER - 500 ML IVPB ONE (14:49)
[2024-02-06] MEDS: DEXTROSE 5%-WATER - 1,000 ML IV SCH (22:36)
[2024-02-07] MEDS ORDERED: GLUCAGON 1 MG KIT ONE (11:21)
[2024-02-07] MEDS ORDERED: FENTANYL CITRATE/PF 50 MCG/ML VIAL ONE (12:47)
[2024-02-07] MEDS: GLUCAGON 1 MG KIT IVPUSH ONE (13:13)
[2024-02-08 10:22] LABS: HEMATOCRIT 24.2 % (32.4-45.2); HEMOGLOBIN 7.8 GM/dL (10.7-15.3); MCHC 32.3 g/dl (32.0-36.0); MEAN CELL VOLUME 80.5 fl (80-96); PLATELET COUNT 346 10^3/uL (134-434); RBC 3.01 M/mm3 (3.60-5.2); RDW 15.3 % (11.6-15.6); WHITE BLOOD COUNT 8.3 K/mm3 (4.0-10.0)
[2024-02-08 10:46] LABS: POTASSIUM 4.1 mmol/L (3.5-5.1)
[2024-02-08 10:49] LABS: CALCIUM 8.2 mg/dL (8.5-10.1)
[2024-02-08 10:50] LABS: BLOOD UREA NITROGEN 9.1 mg/dL (7-18)
[2024-02-08 10:53] LABS: CREATININE 0.3 mg/dL (0.55-1.3); PHOSPHOROUS 3.2 mg/dL (2.5-4.9)
[2024-02-09 09:47] LABS: HEMATOCRIT 20.2 % (32.4-45.2); MCH 26.3 pg (25.7-33.7); MCHC 32.7 g/dl (32.0-36.0); MEAN CELL VOLUME 80.3 fl (80-96); MEAN PLT VOLUME 7.7 fl (7.5-11.1); PLATELET COUNT 309 10^3/uL (134-434); RBC 2.52 M/mm3 (3.60-5.2); RDW 15.4 % (11.6-15.6); WHITE BLOOD COUNT 6.8 K/mm3 (4.0-10.0)
[2024-02-09 09:55] LABS: HEMOGLOBIN 6.6 GM/dL (10.7-15.3)
[2024-02-09 10:18] LABS: CHLORIDE 105 mmol/L (98-107); POTASSIUM 3.9 mmol/L (3.5-5.1); SODIUM 141 mmol/L (136-145)
[2024-02-09 10:23] LABS: CALCIUM 7.9 mg/dL (8.5-10.1); GLUCOSE,RANDOM 91 mg/dL (74-106)
[2024-02-09 10:24] LABS: ANION GAP 4 mmol/L (4-13); BLOOD UREA NITROGEN 8.8 mg/dL (7-18); CO2 32 mmol/L (21-32); MAGNESIUM 1.7 mg/dL (1.8-2.4)
[2024-02-09 10:27] LABS: CREATININE < 0.2 mg/dL (0.55-1.3); PHOSPHOROUS 2.9 mg/dL (2.5-4.9)
[2024-02-09 16:11] LABS: HEMATOCRIT 22.4 % (32.4-45.2); HEMOGLOBIN 7.3 GM/dL (10.7-15.3); MCH 26.2 pg (25.7-33.7); MCHC 32.7 g/dl (32.0-36.0); MEAN CELL VOLUME 79.9 fl (80-96); MEAN PLT VOLUME 7.7 fl (7.5-11.1); PLATELET COUNT 303 10^3/uL (134-434); RDW 15.9 % (11.6-15.6); WHITE BLOOD COUNT 7.1 K/mm3 (4.0-10.0)
[2024-02-09 17:24] LABS: RETICULOCYTES 1.97 % (0.5-1.5)
[2024-02-09] MEDS: MAGNESIUM SULF 50% (8.12 MEQ/2 ML-1 GM VIAL) IVPB ONE (17:33)
[2024-02-09] MEDS: BANATROL PLUS POWDER PACKET PEG SCH (17:33)
[2024-02-09 23:07] LABS: IRON SERUM 16 ug/dL (50-175); TOTAL IRON BINDING CAPACITY 176 ug/dL (250-450)
[2024-02-10 15:56] LABS: HEMATOCRIT 24.8 % (32.4-45.2); HEMOGLOBIN 7.9 GM/dL (10.7-15.3); MCH 25.7 pg (25.7-33.7); MCHC 31.8 g/dl (32.0-36.0); MEAN PLT VOLUME 8.1 fl (7.5-11.1); PLATELET COUNT 328 10^3/uL (134-434); RBC 3.07 M/mm3 (3.60-5.2); RDW 15.8 % (11.6-15.6); WHITE BLOOD COUNT 7.2 K/mm3 (4.0-10.0)
[2024-02-10 16:04] LABS: POTASSIUM 4.5 mmol/L (3.5-5.1)
[2024-02-10 16:05] LABS: CALCIUM 8.3 mg/dL (8.5-10.1)
[2024-02-10 16:06] LABS: BLOOD UREA NITROGEN 8.6 mg/dL (7-18); MAGNESIUM 2.1 mg/dL (1.8-2.4)
[2024-02-10 16:09] LABS: CREATININE 0.3 mg/dL (0.55-1.3); PHOSPHOROUS 3.2 mg/dL (2.5-4.9)
[2024-02-11 08:55] LABS: HEMATOCRIT 24.9 % (32.4-45.2); HEMOGLOBIN 8.1 GM/dL (10.7-15.3); MCH 26.2 pg (25.7-33.7); MCHC 32.5 g/dl (32.0-36.0); MEAN CELL VOLUME 80.7 fl (80-96); MEAN PLT VOLUME 7.8 fl (7.5-11.1); PLATELET COUNT 300 10^3/uL (134-434); RBC 3.09 M/mm3 (3.60-5.2); RDW 15.6 % (11.6-15.6); WHITE BLOOD COUNT 4.9 K/mm3 (4.0-10.0)
[2024-02-11 09:23] LABS: POTASSIUM 5.1 mmol/L (3.5-5.1)
[2024-02-11 09:35] VITALS: BP 109/53; PULSE 88; RESP 20; TEMP 98.4
[2024-02-11 09:35] LABS: BLOOD UREA NITROGEN 8.2 mg/dL (7-18); CALCIUM 8.3 mg/dL (8.5-10.1)
[2024-02-11 09:38] LABS: CREATININE 0.2 mg/dL (0.55-1.3); PHOSPHOROUS 3.2 mg/dL (2.5-4.9)
[2024-02-26] MEDS ORDERED: HALOPERIDOL DECANOATE 100 MG/ML IM SCH (12:30)
== END 2024-02-11 13:08 | DRG 5 ==
LOC: JER 09:02 → JERBED 10:47 → JICU 14:07 → J5S 02-01 21:57
PROVIDERS: ADMIT Internal Medicine Pulmonary Disease
PROC: 5A1955Z Respiratory Ventilation, Greater than 96 Consecutive Hours (ICD-10-PCS; 2024-01-09)
PROC: 0BH17EZ Insertion of Endotracheal Airway into Trachea, Via Natural or Artificial Opening (ICD-10-PCS; 2024-01-09)
PROC: 02HV33Z Insertion of Infusion Device into Superior Vena Cava, Percutaneous Approach (ICD-10-PCS; 2024-01-10)
PROC: B548ZZA Ultrasonography of Superior Vena Cava, Guidance (ICD-10-PCS; 2024-01-10)
PROC: 4A10X4Z Monitoring of Central Nervous Electrical Activity, External Approach (ICD-10-PCS; 2024-01-16)
PROC: 5A1955Z Respiratory Ventilation, Greater than 96 Consecutive Hours (ICD-10-PCS; 2024-01-18)
PROC: 0BH17EZ Insertion of Endotracheal Airway into Trachea, Via Natural or Artificial Opening (ICD-10-PCS; 2024-01-18)
PROC: 0B113F4 Bypass Trachea to Cutaneous with Tracheostomy Device, Percutaneous Approach (ICD-10-PCS; principal; 2024-01-30)
PROC: 0BJ08ZZ Inspection of Tracheobronchial Tree, Via Natural or Artificial Opening Endoscopic (ICD-10-PCS; 2024-01-30)
PROC: 0DH63UZ Insertion of Feeding Device into Stomach, Percutaneous Approach (ICD-10-PCS; 2024-02-07)
DX: A41.9 Sepsis, unspecified organism (principal); I63.89 Other cerebral infarction; J69.0 Pneumonitis due to inhalation of food and vomit; R13.10 Dysphagia, unspecified; I69.354 Hemiplegia and hemiparesis following cerebral infarction affecting left non-dominant side; G93.41 Metabolic encephalopathy; J43.9 Emphysema, unspecified; F20.9 Schizophrenia, unspecified; I27.20 Pulmonary hypertension, unspecified; E87.29 Other acidosis; I24.89 Other forms of acute ischemic heart disease; J96.21 Acute and chronic respiratory failure with hypoxia; J96.22 Acute and chronic respiratory failure with hypercapnia; N39.0 Urinary tract infection, site not specified; G40.909 Epilepsy, unspecified, not intractable, without status epilepticus; F03.90 Unspecified dementia, unspecified severity, without behavioral disturbance, psychotic disturbance, mood disturbance, and anxiety; D64.9 Anemia, unspecified; I25.10 Atherosclerotic heart disease of native coronary artery without angina pectoris; F31.9 Bipolar disorder, unspecified; K62.89 Other specified diseases of anus and rectum; E87.6 Hypokalemia; I16.0 Hypertensive urgency
CPT/HCPCS: 0241U-QW; 31500; 36415; 36600; 49440; 70450-TC; 71045-TC-FY; 74018-TC-FY; 80048; 80053; 80164; 80177; 81003; 82272; 82550; 82553; 82728; 82803; 82962; 83540; 83550; 83605; 83735; 84100; 84132; 84146; 84466; 84484; 85025; 85027; 85045; 85610; 85730; 86850; 86900; 86901; 87040; 87045; 87046; 87070; 87086; 87102; 87186; 87205; 87210; 87324; 87449; 93005; 93010; 93970-TC; 94002; 94640; 94660; 95816; 99285-25; G0480; J0131

== ENCOUNTER 2024-04-20 12:35 | Inpatient (IN) | payer OTHER ==
[2024-04-20 14:39] LABS: HEMATOCRIT 19.9 % (32.4-45.2); MCH 24.5 pg (25.7-33.7); MCHC 31.5 g/dl (32.0-36.0); MEAN CELL VOLUME 77.7 fl (80-96); MEAN PLT VOLUME 9.5 fl (7.5-11.1); PLATELET COUNT 226 10^3/uL (134-434); RBC 2.56 M/mm3 (3.60-5.2); RDW 20.6 % (11.6-15.6); WHITE BLOOD COUNT 9.7 K/mm3 (4.0-10.0)
[2024-04-20 14:39] LABS: VENOUS BASE EXCESS 15.4 mmol/L (-2-2); VENOUS O2 SATURATION 94.6 % (70-80); VENOUS PCO2 51.9 mmHg (38-52); VENOUS PH 7.515 (7.310-7.410)
[2024-04-20 14:50] LABS: BG HCT QNS % (32.4-45.2)
[2024-04-20 14:56] LABS: HEMOGLOBIN 6.3 GM/dL (10.7-15.3)
[2024-04-20 15:05] LABS: CHLORIDE 85 mmol/L (98-107); SODIUM 127 mmol/L (136-145)
[2024-04-20 15:08] LABS: CALCIUM 8.5 mg/dL (8.5-10.1); GLUCOSE,RANDOM 99 mg/dL (74-106)
[2024-04-20 15:09] LABS: ALBUMIN 1.8 g/dl (3.4-5.0); BLOOD UREA NITROGEN 39.6 mg/dL (7-18); CO2 41 mmol/L (21-32)
[2024-04-20 15:12] LABS: CREATININE 0.5 mg/dL (0.55-1.3); SGOT/AST 154 U/L (15-37)
[2024-04-20 15:13] LABS: BILIRUBIN,TOTAL 0.7 mg/dL (0.2-1); TOT PROT 6.5 g/dl (6.4-8.2)
[2024-04-20 15:14] LABS: ALK PHOS 97 U/L (45-117)
[2024-04-20 15:17] LABS: ANION GAP 0 mmol/L (4-13); POTASSIUM 7.6 mmol/L (3.5-5.1); SGPT/ALT 113 U/L (13-61)
[2024-04-20] MEDS: SODIUM CHLORIDE 0.9% 500 ML INFUS.BAG IV ONE (15:18)
[2024-04-20 15:24] LABS: EPI CELLS 15 /uL (0-25.1); HYALINE CASTS 1 /uL (0-3.1); URINE APPEARANCE CLEAR; URINE BACTERIA 10 /uL (0-1359); URINE BILIRUBIN NEGATIVE (NEGATIVE); URINE COLOR DK YELLOW; URINE GLUCOSE (UA) NEGATIVE (NEGATIVE); URINE KETONE TRACE (NEGATIVE); URINE LEUK ESTERASE TRACE (NEGATIVE); URINE NITRITE NEGATIVE (NEGATIVE); URINE PROTEIN 2+ (NEGATIVE); URINE RBC 1312 /uL (0-23.9); URINE WBC 35 /uL (0-25.8)
[2024-04-20] MEDS ORDERED: VANCOMYCIN/WATER 1250 MG 1,250 MG/250 ML BAG IVPB ONE (15:38)
[2024-04-20] MEDS ORDERED: ACETAMINOPHEN INJECTION 100 ML ONE (15:38)
[2024-04-20] MEDS ORDERED: PANTOPRAZOLE SODIUM 40 MG VIAL ONE (15:39)
[2024-04-20 15:48] LABS: INR 1.22 (0.83-1.09); PROTHROMBIN TIME (PATIENT) 13.7 SEC (9.7-13.0)
[2024-04-20 15:54] LABS: HIV INTERPRETATION NEGATIVE (NEGATIVE)
[2024-04-20] MEDS: VANCOMYCIN/WATER 1250 MG 1,250 MG/250 ML BAG IVPB ONE (15:56)
[2024-04-20] MEDS: PANTOPRAZOLE SODIUM 40 MG VIAL IVPUSH ONE (15:57)
[2024-04-20] MEDS ORDERED: ALBUTEROL SO4 0.083% IH SOL 2.5 MG/3 ML VIAL.NEB. NEB ONE (15:57)
[2024-04-20] MEDS: ACETAMINOPHEN 1000 MG/100 ML BAG IVPB ONE (15:57)
[2024-04-20 17:26] LABS: POTASSIUM 5.3 mmol/L (3.5-5.1)
[2024-04-20] MEDS ORDERED: MEROPENEM 1 GM VIAL (RESTRICTED TO ID) IVPB ONE (17:26)
[2024-04-20 17:31] LABS: CREATININE 0.3 mg/dL (0.55-1.3)
[2024-04-20] MEDS: ALBUTEROL SO4 0.083% IH SOL 2.5 MG/3 ML VIAL.NEB. NEB ONE (17:33)
[2024-04-20] MEDS: MEROPENEM 1 GM in DEXTROSE 5%-WATER 100 ML IVPB ONE (17:33)
[2024-04-20] MEDS: SODIUM CHLORIDE 1,000 ML IV STA (20:15)
[2024-04-20] MEDS ORDERED: PIPERACILLIN/TAZOB 4.5 GM 4.5 GM in DEXTROSE 5%-WATER 100 ML IVPB SCH (21:00)
[2024-04-20] MEDS ORDERED: PATIENT'S OWN MEDICATION (NON-FORMULARY) (Ipratropium Bromide [Atrovent Hfa] 12.9 GM Hfa.A IH SCH (22:00)
[2024-04-20] MEDS ORDERED: PIPERACILLIN/TAZOB 4.5 GM 4.5 GM/100 ML BAG IVPB ONE (22:29)
[2024-04-20] MEDS ORDERED: ATORVASTATIN CA 40 MG TABLET (FP) ONE (22:32)
[2024-04-20] MEDS ORDERED: MIRTAZAPINE 15 MG TABLET (FP) ONE (22:33)
[2024-04-20] MEDS: PIPERACILLIN/TAZOB 4.5 GM 4.5 GM in DEXTROSE 5%-WATER 100 ML IVPB SCH (22:34)
[2024-04-20] MEDS: VALPROATE SODIUM 250 MG/5 ML UNIT DOSE CUP PEG SCH (23:16)
[2024-04-20] MEDS: MIRTAZAPINE 15 MG TABLET (FP) PEG SCH (23:16)
[2024-04-20] MEDS: ATORVASTATIN CA 40 MG TABLET (FP) PEG SCH (23:16)
[2024-04-20] MEDS: levETIRAcetam 500 MG/5 ML ORAL SOLUTION (UNIT-DOSE CUPS) PEG SCH (23:16)
[2024-04-21 02:26] LABS: BASO % 0.1 % (0-2.0); EOS % 0.1 % (0-4.5); HEMATOCRIT 24.7 % (32.4-45.2); HEMOGLOBIN 7.8 GM/dL (10.7-15.3); LYMPH % 6.7 % (8-40); MCH 24.9 pg (25.7-33.7); MCHC 31.4 g/dl (32.0-36.0); MEAN CELL VOLUME 79.1 fl (80-96); MEAN PLT VOLUME 8.7 fl (7.5-11.1); MONO % 16.7 % (3.8-10.2); NEUT % 76.4 % (42.8-82.8); PLATELET COUNT 220 10^3/uL (134-434); RBC 3.12 M/mm3 (3.60-5.2); RDW 19.2 % (11.6-15.6); WHITE BLOOD COUNT 14.8 K/mm3 (4.0-10.0)
[2024-04-21] MEDS: SODIUM CHLORIDE 1,000 ML IV STA (03:07)
[2024-04-21] MEDS ORDERED: PIPERACILLIN/TAZOB 4.5 GM 4.5 GM/100 ML BAG IVPB ONE ×3 (03:27→15:30)
[2024-04-21 06:41] LABS: HEMATOCRIT 24.4 % (32.4-45.2); HEMOGLOBIN 7.6 GM/dL (10.7-15.3); MCH 24.5 pg (25.7-33.7); MEAN CELL VOLUME 79.3 fl (80-96); RBC 3.08 M/mm3 (3.60-5.2); RDW 19.1 % (11.6-15.6)
[2024-04-21 07:05] LABS: WHITE BLOOD COUNT 17.6 K/mm3 (4.0-10.0)
[2024-04-21 07:27] LABS: POTASSIUM 4.1 mmol/L (3.5-5.1)
[2024-04-21 07:34] LABS: BLOOD UREA NITROGEN 34.9 mg/dL (7-18)
[2024-04-21 07:35] LABS: BILIRUBIN,TOTAL 0.6 mg/dL (0.2-1); CALCIUM 8.5 mg/dL (8.5-10.1); CREATININE 0.4 mg/dL (0.55-1.3); MAGNESIUM 2.4 mg/dL (1.8-2.4); PHOSPHOROUS 4.1 mg/dL (2.5-4.9); TOT PROT 6.1 g/dl (6.4-8.2)
[2024-04-21 11:02] LABS: ANISOCYTOSIS 1+; MACROCYTOSIS 0; TARGET CELLS 1+
[2024-04-21] MEDS ORDERED: THIAMINE 100 MG TABLET ONE (11:14)
[2024-04-21] MEDS ORDERED: FOLIC ACID 1 MG TABLET (FP) ONE (11:14)
[2024-04-21] MEDS: THIAMINE 100 MG TABLET NGT SCH (11:58)
[2024-04-21] MEDS: FOLIC ACID 1 MG TABLET (FP) PEG SCH (11:58)
[2024-04-22 07:25] LABS: BASO % 0.3 % (0-2.0); EOS % 0.4 % (0-4.5); HEMATOCRIT 28.5 % (32.4-45.2); HEMOGLOBIN 8.9 GM/dL (10.7-15.3); LYMPH % 10.9 % (8-40); MCH 24.8 pg (25.7-33.7); MCHC 31.3 g/dl (32.0-36.0); MEAN CELL VOLUME 79.3 fl (80-96); MEAN PLT VOLUME 8.3 fl (7.5-11.1); MONO % 18.9 % (3.8-10.2); NEUT % 69.5 % (42.8-82.8); PLATELET COUNT 261 10^3/uL (134-434); RDW 18.8 % (11.6-15.6); WHITE BLOOD COUNT 14.1 K/mm3 (4.0-10.0)
[2024-04-22 07:32] LABS: POTASSIUM 3.4 mmol/L (3.5-5.1)
[2024-04-22 07:37] LABS: CALCIUM 8.8 mg/dL (8.5-10.1)
[2024-04-22 07:38] LABS: BLOOD UREA NITROGEN 24.8 mg/dL (7-18)
[2024-04-22 07:41] LABS: CREATININE 0.2 mg/dL (0.55-1.3)
[2024-04-22 07:42] LABS: BILIRUBIN,TOTAL 0.8 mg/dL (0.2-1); TOT PROT 6.3 g/dl (6.4-8.2)
[2024-04-22] MEDS: KCL 10 MEQ IVPB 10 MEQ/100 ML INFUS.BAG IVPB SCH (09:00)
[2024-04-22] MEDS: FUROSEMIDE INJECTION 100 MG in SODIUM CHLORIDE 90 ML IVPB SCH (13:19)
[2024-04-22] MEDS: POLYETHYLENE GLYCOL (HEALTHYLAX) 3350 17 GM PACKET PEG SCH (21:24)
[2024-04-22] MEDS: ALBUTEROL SO4 2.5/IPRATROPIUM 0.5 INH SOL 3 ML VIAL.NEB. NEB SCH (23:47)
[2024-04-23] MEDS: PIPERACILLIN/TAZOB 4.5 GM 4.5 GM in DEXTROSE 5%-WATER 100 ML IVPB SCH (17:30)
[2024-04-23 17:50] LABS: HEMATOCRIT 28.5 % (32.4-45.2); HEMOGLOBIN 9.1 GM/dL (10.7-15.3); MCH 25.2 pg (25.7-33.7); MCHC 32.1 g/dl (32.0-36.0); MEAN CELL VOLUME 78.5 fl (80-96); MEAN PLT VOLUME 7.5 fl (7.5-11.1); PLATELET COUNT 286 10^3/uL (134-434); RBC 3.63 M/mm3 (3.60-5.2); RDW 19.9 % (11.6-15.6); WHITE BLOOD COUNT 13.1 K/mm3 (4.0-10.0)
[2024-04-23 18:07] LABS: POTASSIUM 3.5 mmol/L (3.5-5.1)
[2024-04-23 18:11] LABS: BLOOD UREA NITROGEN 15.7 mg/dL (7-18); CALCIUM 8.7 mg/dL (8.5-10.1)
[2024-04-23 18:12] LABS: ALBUMIN 1.7 g/dl (3.4-5.0)
[2024-04-23 18:15] LABS: CREATININE 0.2 mg/dL (0.55-1.3)
[2024-04-23 18:17] LABS: BILIRUBIN,TOTAL 0.7 mg/dL (0.2-1); TOT PROT 5.9 g/dl (6.4-8.2)
[2024-04-23 18:42] LABS: ANISOCYTOSIS 3+; MACROCYTOSIS 0
[2024-04-23] MEDS: IPRATROPIUM BROMIDE NEB SCH (19:34)
[2024-04-24 15:33] VITALS: BMI 24.3
[2024-04-24] MEDS: MEROPENEM 1 GM in DEXTROSE 5%-WATER 100 ML IVPB SCH (17:15)
[2024-04-25 06:10] LABS: BASO % 0.4 % (0-2.0); EOS % 0.3 % (0-4.5); HEMATOCRIT 32.3 % (32.4-45.2); HEMOGLOBIN 10.1 GM/dL (10.7-15.3); LYMPH % 10.8 % (8-40); MCH 24.8 pg (25.7-33.7); MCHC 31.1 g/dl (32.0-36.0); MEAN CELL VOLUME 79.6 fl (80-96); MEAN PLT VOLUME 7.7 fl (7.5-11.1); NEUT % 71.5 % (42.8-82.8); PLATELET COUNT 359 10^3/uL (134-434); RBC 4.06 M/mm3 (3.60-5.2); WHITE BLOOD COUNT 14.3 K/mm3 (4.0-10.0)
[2024-04-25 06:26] LABS: CHLORIDE 89 mmol/L (98-107); SODIUM 140 mmol/L (136-145)
[2024-04-25 06:32] LABS: ALBUMIN 1.7 g/dl (3.4-5.0); BLOOD UREA NITROGEN 15.1 mg/dL (7-18); CALCIUM 8.5 mg/dL (8.5-10.1)
[2024-04-25 06:33] LABS: GLUCOSE,RANDOM 142 mg/dL (74-106)
[2024-04-25] MEDS: KCL 10 MEQ IVPB 10 MEQ/100 ML INFUS.BAG IVPB SCH (06:35)
[2024-04-25 06:36] LABS: SGOT/AST 31 U/L (15-37); SGPT/ALT 48 U/L (13-61)
[2024-04-25 06:37] LABS: BILIRUBIN,TOTAL 0.6 mg/dL (0.2-1); CREATININE 0.4 mg/dL (0.55-1.3); TOT PROT 6.1 g/dl (6.4-8.2)
[2024-04-25 06:38] LABS: ALK PHOS 90 U/L (45-117)
[2024-04-25] MEDS: POTASSIUM CHLORIDE ORAL LIQUID 20 MEQ/15 ML PO ONE (06:50)
[2024-04-25 07:09] LABS: ANION GAP 6 mmol/L (4-13); CO2 > 45 mmol/L (21-32)
[2024-04-25 18:19] LABS: ARTERIAL BLD GAS O2 SATURATION 97.4 % (95-98); ARTERIAL BLOOD GAS BASE EXCESS 18.2 mmol/L (-2-2); ARTERIAL BLOOD GAS PO2 98.1 mmHg (80-100); ARTERIAL BLOOD GAS pH 7.436 (7.350-7.450)
[2024-04-25 18:22] LABS: ALLENS TEST POSITIVE
[2024-04-25 18:24] LABS: VENT MODE A/C; VENT RATE 20
[2024-04-25] MEDS: ZINC OXIDE 20% TOPICAL OINTMENT 30 GM TUBE TP SCH (21:01)
[2024-04-26] MEDS: ENOXAPARIN NA (PORCINE) 40 MG/0.4 ML DISP.SYRIN SQ SCH (18:40)
[2024-04-26] MEDS: POTASSIUM CHLORIDE ORAL LIQUID 20 MEQ/15 ML PO ONE (18:41)
[2024-04-27 07:04] LABS: BASO % 0.3 % (0-2.0); EOS % 0.5 % (0-4.5); HEMATOCRIT 31.2 % (32.4-45.2); HEMOGLOBIN 9.7 GM/dL (10.7-15.3); LYMPH % 8.1 % (8-40); MCH 25.1 pg (25.7-33.7); MCHC 31.1 g/dl (32.0-36.0); MEAN CELL VOLUME 80.5 fl (80-96); MEAN PLT VOLUME 8.1 fl (7.5-11.1); MONO % 10.4 % (3.8-10.2); NEUT % 80.7 % (42.8-82.8); PLATELET COUNT 335 10^3/uL (134-434); RBC 3.88 M/mm3 (3.60-5.2); RDW 19.2 % (11.6-15.6); WHITE BLOOD COUNT 18.4 K/mm3 (4.0-10.0)
[2024-04-27 07:13] LABS: CHLORIDE 85 mmol/L (98-107); POTASSIUM 4.8 mmol/L (3.5-5.1); SODIUM 135 mmol/L (136-145)
[2024-04-27 07:20] LABS: ALBUMIN 1.7 g/dl (3.4-5.0); BLOOD UREA NITROGEN 26.9 mg/dL (7-18); CALCIUM 8.6 mg/dL (8.5-10.1)
[2024-04-27 07:21] LABS: GLUCOSE,RANDOM 99 mg/dL (74-106)
[2024-04-27 07:23] LABS: CREATININE 0.7 mg/dL (0.55-1.3); SGOT/AST 73 U/L (15-37); SGPT/ALT 66 U/L (13-61)
[2024-04-27 07:24] LABS: BILIRUBIN,TOTAL 0.3 mg/dL (0.2-1); TOT PROT 6.5 g/dl (6.4-8.2)
[2024-04-27 07:25] LABS: ALK PHOS 111 U/L (45-117)
[2024-04-27 07:49] LABS: ANION GAP 5 mmol/L (4-13); CO2 > 45 mmol/L (21-32)
[2024-04-27] MEDS: MEROPENEM 1 GM PUSH 1 GM/20 ML DISP.SYRIN IVPUSH SCH (18:10)
[2024-04-28 07:41] LABS: HEMATOCRIT 31.4 % (32.4-45.2); HEMOGLOBIN 9.8 GM/dL (10.7-15.3); MCH 24.9 pg (25.7-33.7); MCHC 31.2 g/dl (32.0-36.0); MEAN CELL VOLUME 79.9 fl (80-96); MEAN PLT VOLUME 7.9 fl (7.5-11.1); PLATELET COUNT 389 10^3/uL (134-434); RBC 3.93 M/mm3 (3.60-5.2); RDW 19.9 % (11.6-15.6); WHITE BLOOD COUNT 21.3 K/mm3 (4.0-10.0)
[2024-04-28 08:16] LABS: CHLORIDE 86 mmol/L (98-107); POTASSIUM 5.2 mmol/L (3.5-5.1); SODIUM 136 mmol/L (136-145)
[2024-04-28 08:34] LABS: BLOOD UREA NITROGEN 32.2 mg/dL (7-18); GLUCOSE,RANDOM 130 mg/dL (74-106)
[2024-04-28 08:35] LABS: ALBUMIN 1.7 g/dl (3.4-5.0)
[2024-04-28 08:36] LABS: ANION GAP 5 mmol/L (4-13); CO2 > 45 mmol/L (21-32)
[2024-04-28 08:38] LABS: CREATININE 0.7 mg/dL (0.55-1.3); SGOT/AST 75 U/L (15-37); SGPT/ALT 71 U/L (13-61)
[2024-04-28 08:39] LABS: PHOSPHOROUS 4.2 mg/dL (2.5-4.9)
[2024-04-28 08:40] LABS: BILIRUBIN,TOTAL 0.3 mg/dL (0.2-1); TOT PROT 6.6 g/dl (6.4-8.2)
[2024-04-28 08:41] LABS: ALK PHOS 116 U/L (45-117)
[2024-04-30 07:32] LABS: HEMATOCRIT 27.3 % (32.4-45.2); HEMOGLOBIN 8.6 GM/dL (10.7-15.3); MCH 24.9 pg (25.7-33.7); MCHC 31.6 g/dl (32.0-36.0); MEAN CELL VOLUME 78.6 fl (80-96); PLATELET COUNT 450 10^3/uL (134-434); RBC 3.47 M/mm3 (3.60-5.2); RDW 19.5 % (11.6-15.6); WHITE BLOOD COUNT 14.8 K/mm3 (4.0-10.0)
[2024-04-30 07:50] LABS: CHLORIDE 85 mmol/L (98-107); POTASSIUM 4.9 mmol/L (3.5-5.1); SODIUM 134 mmol/L (136-145)
[2024-04-30 08:09] LABS: CALCIUM 8.8 mg/dL (8.5-10.1)
[2024-04-30 08:10] LABS: BLOOD UREA NITROGEN 35.4 mg/dL (7-18); GLUCOSE,RANDOM 110 mg/dL (74-106)
[2024-04-30 08:11] LABS: ALBUMIN 1.6 g/dl (3.4-5.0)
[2024-04-30 08:13] LABS: ANION GAP 4 mmol/L (4-13); CO2 > 45 mmol/L (21-32); CREATININE 0.7 mg/dL (0.55-1.3); SGOT/AST 80 U/L (15-37); SGPT/ALT 74 U/L (13-61)
[2024-04-30 08:14] LABS: BILIRUBIN,TOTAL 0.2 mg/dL (0.2-1); TOT PROT 6.6 g/dl (6.4-8.2)
[2024-04-30 08:15] LABS: ALK PHOS 102 U/L (45-117)
[2024-04-30] MEDS ORDERED: MEROPENEM 1 GM in DEXTROSE 5%-WATER 100 ML IVPB SCH (10:00)
[2024-04-30] MEDS: MEROPENEM 1 GM PUSH 1 GM/20 ML DISP.SYRIN IVPUSH SCH (11:16)
[2024-04-30] MEDS: FUROSEMIDE 40 MG/4 ML INJECTABLE VIAL IVPUSH ONE (14:40)
[2024-04-30] MEDS: ACETAMINOPHEN 325 MG TABLET (FP) PO PRN (14:40)
[2024-04-30] MEDS ORDERED: PATIENT'S OWN MEDICATION (NON-FORMULARY) (Labetalol Hcl [Labetalol Hcl] 300 MG) PEG SCH (16:29)
[2024-04-30] MEDS: LABETALOL HCL 100 MG TABLET (FP) PEG SCH (18:05)
[2024-04-30] MEDS: LABETALOL HCL 200 MG TABLET (FP) PO SCH (18:48)
[2024-05-01 06:58] LABS: HEMATOCRIT 27.1 % (32.4-45.2); HEMOGLOBIN 8.4 GM/dL (10.7-15.3); MCH 24.9 pg (25.7-33.7); MCHC 31.2 g/dl (32.0-36.0); MEAN CELL VOLUME 79.9 fl (80-96); MEAN PLT VOLUME 8.1 fl (7.5-11.1); PLATELET COUNT 464 10^3/uL (134-434); RBC 3.39 M/mm3 (3.60-5.2); RDW 19.7 % (11.6-15.6); WHITE BLOOD COUNT 15.1 K/mm3 (4.0-10.0)
[2024-05-01 07:15] LABS: CHLORIDE 86 mmol/L (98-107); SODIUM 134 mmol/L (136-145)
[2024-05-01 07:18] LABS: CALCIUM 8.7 mg/dL (8.5-10.1)
[2024-05-01 07:19] LABS: ALBUMIN 1.6 g/dl (3.4-5.0); BLOOD UREA NITROGEN 36.7 mg/dL (7-18)
[2024-05-01 07:20] LABS: GLUCOSE,RANDOM 126 mg/dL (74-106)
[2024-05-01 07:22] LABS: CREATININE 0.7 mg/dL (0.55-1.3)
[2024-05-01 07:23] LABS: SGOT/AST 58 U/L (15-37); SGPT/ALT 59 U/L (13-61)
[2024-05-01 07:25] LABS: ALK PHOS 104 U/L (45-117); BILIRUBIN,TOTAL 0.3 mg/dL (0.2-1); TOT PROT 6.5 g/dl (6.4-8.2)
[2024-05-01 07:38] LABS: ANION GAP 3 mmol/L (4-13); CO2 > 45 mmol/L (21-32)
[2024-05-01 12:47] LABS: MAGNESIUM 2.1 mg/dL (1.8-2.4)
[2024-05-01 12:50] LABS: PHOSPHOROUS 3.8 mg/dL (2.5-4.9)
[2024-05-01] MEDS: FUROSEMIDE 40 MG/4 ML INJECTABLE VIAL IVPUSH ONE (12:51)
[2024-05-01] MEDS ORDERED: MEROPENEM IVPB SCH (13:41)
[2024-05-01] MEDS ORDERED: SODIUM CHLORIDE IVPB SCH (13:41)
[2024-05-01] MEDS ORDERED: MEROPENEM-0.9% SODIUM CHLORIDE 1 GM/50 ML BAG IVPB SCH (13:42)
[2024-05-01] MEDS: MEROPENEM-0.9% SODIUM CHLORIDE 1 GM/50 ML BAG IVPB SCH (18:04)
[2024-05-01 19:01] LABS: EPI CELLS 5 /uL (0-25.1); HYALINE CASTS 0 /uL (0-3.1); PH,URINE 8.5 (5.0-8.0); URINE APPEARANCE CLEAR; URINE BACTERIA 31 /uL (0-1359); URINE BILIRUBIN NEGATIVE (NEGATIVE); URINE COLOR YELLOW; URINE GLUCOSE (UA) NEGATIVE (NEGATIVE); URINE KETONE NEGATIVE (NEGATIVE); URINE LEUK ESTERASE NEGATIVE (NEGATIVE); URINE NITRITE NEGATIVE (NEGATIVE); URINE PROTEIN 1+ (NEGATIVE); URINE RBC 189 /uL (0-23.9); URINE UROBILINOGEN 0.2 mg/dL (0.2-1.0); URINE WBC 5 /uL (0-25.8)
[2024-05-02] MEDS: MEROPENEM-0.9% SODIUM CHLORIDE 1 GM/50 ML BAG IVPB SCH (01:34)
[2024-05-02] MEDS: ACETAMINOPHEN 325 MG TABLET (FP) PO PRN (02:51)
[2024-05-02] MEDS: ALBUTEROL SO4 2.5/IPRATROPIUM 0.5 INH SOL 3 ML VIAL.NEB. NEB SCH (07:40)
[2024-05-02] MEDS: ENOXAPARIN NA (PORCINE) 40 MG/0.4 ML DISP.SYRIN SQ SCH (11:00)
[2024-05-02] MEDS: VALPROATE SODIUM 250 MG/5 ML UNIT DOSE CUP PEG SCH (11:01)
[2024-05-02] MEDS: FOLIC ACID 1 MG TABLET (FP) PEG SCH (11:01)
[2024-05-02] MEDS: levETIRAcetam 500 MG/5 ML ORAL SOLUTION (UNIT-DOSE CUPS) PEG SCH (11:01)
[2024-05-02] MEDS: THIAMINE 100 MG TABLET NGT SCH (11:02)
[2024-05-02] MEDS: LABETALOL HCL 200 MG TABLET (FP) PO SCH (11:02)
[2024-05-02] MEDS: ZINC OXIDE 20% TOPICAL OINTMENT 30 GM TUBE TP SCH (11:03)
[2024-05-02 11:23] LABS: HEMATOCRIT 26.3 % (32.4-45.2); HEMOGLOBIN 8.1 GM/dL (10.7-15.3); MCH 24.3 pg (25.7-33.7); MCHC 30.8 g/dl (32.0-36.0); MEAN PLT VOLUME 8.3 fl (7.5-11.1); PLATELET COUNT 476 10^3/uL (134-434); RBC 3.33 M/mm3 (3.60-5.2); WHITE BLOOD COUNT 14.5 K/mm3 (4.0-10.0)
[2024-05-02 11:40] LABS: CHLORIDE 86 mmol/L (98-107); POTASSIUM 4.4 mmol/L (3.5-5.1); SODIUM 134 mmol/L (136-145)
[2024-05-02 11:43] LABS: ALBUMIN 1.5 g/dl (3.4-5.0); BLOOD UREA NITROGEN 36.8 mg/dL (7-18)
[2024-05-02 11:46] LABS: CALCIUM 8.7 mg/dL (8.5-10.1); CREATININE 0.6 mg/dL (0.55-1.3); PHOSPHOROUS 4.1 mg/dL (2.5-4.9); SGOT/AST 50 U/L (15-37); SGPT/ALT 54 U/L (13-61)
[2024-05-02 11:47] LABS: ANION GAP 3 mmol/L (4-13); BILIRUBIN,TOTAL 0.2 mg/dL (0.2-1); CO2 > 45 mmol/L (21-32); GLUCOSE,RANDOM 156 mg/dL (74-106); TOT PROT 6.4 g/dl (6.4-8.2)
[2024-05-02 11:48] LABS: ALK PHOS 130 U/L (45-117)
[2024-05-02] MEDS: ATORVASTATIN CA 40 MG TABLET (FP) PEG SCH (21:27)
[2024-05-02] MEDS ORDERED: MIRTAZAPINE 15 MG TABLET (FP) PEG SCH (22:00)
[2024-05-03 09:57] LABS: BASO % 0.4 % (0-2.0); EOS % 0.1 % (0-4.5); HEMATOCRIT 26.5 % (32.4-45.2); HEMOGLOBIN 8.3 GM/dL (10.7-15.3); MCH 24.4 pg (25.7-33.7); MCHC 31.2 g/dl (32.0-36.0); MEAN CELL VOLUME 78.3 fl (80-96); MEAN PLT VOLUME 8.2 fl (7.5-11.1); MONO % 6.5 % (3.8-10.2); PLATELET COUNT 498 10^3/uL (134-434); RBC 3.38 M/mm3 (3.60-5.2); RDW 20.1 % (11.6-15.6); WHITE BLOOD COUNT 15.7 K/mm3 (4.0-10.0)
[2024-05-03 10:30] LABS: CHLORIDE 89 mmol/L (98-107); POTASSIUM 4.2 mmol/L (3.5-5.1); SODIUM 137 mmol/L (136-145)
[2024-05-03 10:31] LABS: CALCIUM 8.7 mg/dL (8.5-10.1)
[2024-05-03 10:32] LABS: ALBUMIN 1.6 g/dl (3.4-5.0); BLOOD UREA NITROGEN 38.1 mg/dL (7-18); GLUCOSE,RANDOM 141 mg/dL (74-106); MAGNESIUM 1.8 mg/dL (1.8-2.4)
[2024-05-03 10:33] LABS: ANION GAP 3 mmol/L (4-13); CO2 > 45 mmol/L (21-32)
[2024-05-03 10:35] LABS: CREATININE 0.5 mg/dL (0.55-1.3); PHOSPHOROUS 3.4 mg/dL (2.5-4.9); SGOT/AST 47 U/L (15-37); SGPT/ALT 52 U/L (13-61)
[2024-05-03 10:36] LABS: BILIRUBIN,TOTAL 0.4 mg/dL (0.2-1); TOT PROT 6.8 g/dl (6.4-8.2)
[2024-05-03 10:38] LABS: ALK PHOS 131 U/L (45-117)
[2024-05-03] MEDS ORDERED: FUROSEMIDE 40 MG/4 ML INJECTABLE VIAL ONE ×2 (15:15→23:29)
[2024-05-03] MEDS: FUROSEMIDE 40 MG/4 ML INJECTABLE VIAL IVPUSH ONE ×2 (15:31→23:32)
[2024-05-03 17:07] LABS: ARTERIAL BLD GAS O2 SATURATION 88.9 % (95-98); ARTERIAL BLOOD GAS BASE EXCESS 20.8 mmol/L (-2-2); ARTERIAL BLOOD GAS PO2 63.2 mmHg (80-100); ARTERIAL BLOOD GAS pH 7.336 (7.350-7.450)
[2024-05-03 17:13] LABS: ALLENS TEST POSITIVE
[2024-05-03 17:15] LABS: VENT MODE A/C; VENT RATE 20
[2024-05-03] MEDS: ALBUTEROL SO4 2.5/IPRATROPIUM 0.5 INH SOL 3 ML VIAL.NEB. NEB SCH ×2 (18:26→20:35)
[2024-05-03] MEDS: methylPREDNISolone NA SUCC 125 MG/2 ML VIAL IVPUSH ONE (18:30)
[2024-05-03] MEDS: DEXMEDETOMIDINE PREMIX 400 MCG/100 ML BAG IVPB SCH (21:33)
[2024-05-03] MEDS: VALPROATE SODIUM 250 MG/5 ML UNIT DOSE CUP PEG SCH (22:21)
[2024-05-03] MEDS: MUPIROCIN 2% TOPICAL OINTMENT FOR DECOLONIZATION NS SCH (22:22)
[2024-05-03] MEDS: levETIRAcetam 500 MG/5 ML ORAL SOLUTION (UNIT-DOSE CUPS) PEG SCH (22:23)
[2024-05-03] MEDS: CHLORHEXIDINE GLUCONATE 4% CLEANSER FOR DECOLONIZATION TP SCH (22:23)
[2024-05-03] MEDS: ATORVASTATIN CA 40 MG TABLET (FP) PEG SCH (22:24)
[2024-05-03] MEDS ORDERED: MIDAZOLAM HCL 2 MG/2 ML SINGLE DOSE VIAL ONE (22:39)
[2024-05-04] MEDS: ZINC OXIDE 20% TOPICAL OINTMENT 30 GM TUBE TP SCH (00:43)
[2024-05-04 00:53] LABS: HEMOGLOBIN 9.2 GM/dL (10.7-15.3)
[2024-05-04 00:55] LABS: HEMATOCRIT 29.5 % (32.4-45.2); MCH 24.6 pg (25.7-33.7); MCHC 31.2 g/dl (32.0-36.0); MEAN CELL VOLUME 78.9 fl (80-96); MEAN PLT VOLUME 8.3 fl (7.5-11.1); PLATELET COUNT 638 10^3/uL (134-434); RBC 3.74 M/mm3 (3.60-5.2); WHITE BLOOD COUNT 15.1 K/mm3 (4.0-10.0)
[2024-05-04 01:11] LABS: ARTERIAL BLD GAS O2 SATURATION 82.4 % (95-98); ARTERIAL BLOOD GAS BASE EXCESS 18.8 mmol/L (-2-2); ARTERIAL BLOOD GAS PO2 61.7 mmHg (80-100)
[2024-05-04 01:12] LABS: CHLORIDE 90 mmol/L (98-107); POTASSIUM 4.5 mmol/L (3.5-5.1); SODIUM 138 mmol/L (136-145)
[2024-05-04 01:14] LABS: ARTERIAL BLOOD GAS pH 7.192 (7.350-7.450)
[2024-05-04 01:14] LABS: CALCIUM 8.9 mg/dL (8.5-10.1)
[2024-05-04 01:15] LABS: ALBUMIN 1.8 g/dl (3.4-5.0); BLOOD UREA NITROGEN 35.6 mg/dL (7-18); GLUCOSE,RANDOM 184 mg/dL (74-106); MAGNESIUM 1.7 mg/dL (1.8-2.4)
[2024-05-04 01:18] LABS: CREATININE 0.5 mg/dL (0.55-1.3); SGOT/AST 43 U/L (15-37); SGPT/ALT 51 U/L (13-61)
[2024-05-04 01:19] LABS: PHOSPHOROUS 5.2 mg/dL (2.5-4.9)
[2024-05-04 01:20] LABS: BILIRUBIN,TOTAL 0.2 mg/dL (0.2-1); TOT PROT 7.6 g/dl (6.4-8.2)
[2024-05-04] MEDS ORDERED: MIDAZOLAM HCL 2 MG/2 ML SINGLE DOSE VIAL ONE (01:20)
[2024-05-04 01:21] LABS: ALK PHOS 131 U/L (45-117)
[2024-05-04] MEDS ORDERED: PHENYLEPHRINE HCL 10 MG/1 ML SINGLE DOSE VIAL ONE (01:21)
[2024-05-04] MEDS ORDERED: NOREPINEPHRINE BITARTRATE 4 MG/4 ML ML IV ONE (01:25)
[2024-05-04 01:26] LABS: ANION GAP 3 mmol/L (4-13); CO2 > 45 mmol/L (21-32)
[2024-05-04] MEDS ORDERED: MIDAZOLAM IN 0.9 % SOD.CHLORID 1 MG/1 ML PLAST..BAG ONE (01:27)
[2024-05-04] MEDS: MIDAZOLAM HCL 2 MG/2 ML SINGLE DOSE VIAL IVPUSH ONE ×2 (01:33→03:08)
[2024-05-04] MEDS: MEROPENEM-0.9% SODIUM CHLORIDE 1 GM/50 ML BAG IVPB SCH (02:06)
[2024-05-04 02:55] LABS: ANISOCYTOSIS 1+; MACROCYTOSIS 0; TARGET CELLS 1+
[2024-05-04] MEDS: NOREPINEPHRINE BITARTRATE 4,000 MCG in SODIUM CHLORIDE 496 ML IV SCH (03:14)
[2024-05-04] MEDS: MIDAZOLAM IN 0.9 % SOD.CHLORID 100 MG/100 ML PLAST..BAG IVPB SCH (03:15)
[2024-05-04 05:51] LABS: ARTERIAL BLD GAS O2 SATURATION 95.6 % (95-98); ARTERIAL BLOOD GAS BASE EXCESS 16.5 mmol/L (-2-2); ARTERIAL BLOOD GAS PO2 78.6 mmHg (80-100); ARTERIAL BLOOD GAS pH 7.443 (7.350-7.450)
[2024-05-04 05:54] LABS: ALLENS TEST POSITIVE; VENT MODE A/C; VENT RATE 26
[2024-05-04 07:36] LABS: BASO % 0.1 % (0-2.0); HEMATOCRIT 25.3 % (32.4-45.2); HEMOGLOBIN 8.3 GM/dL (10.7-15.3); LYMPH % 10.1 % (8-40); MCH 25.8 pg (25.7-33.7); MCHC 32.6 g/dl (32.0-36.0); MEAN PLT VOLUME 8.4 fl (7.5-11.1); MONO % 3.9 % (3.8-10.2); NEUT % 85.9 % (42.8-82.8); PLATELET COUNT 540 10^3/uL (134-434); RBC 3.21 M/mm3 (3.60-5.2); RDW 19.5 % (11.6-15.6); WHITE BLOOD COUNT 7.2 K/mm3 (4.0-10.0)
[2024-05-04 07:50] LABS: CHLORIDE 91 mmol/L (98-107); POTASSIUM 4.9 mmol/L (3.5-5.1); SODIUM 140 mmol/L (136-145)
[2024-05-04 07:55] LABS: CALCIUM 9.1 mg/dL (8.5-10.1)
[2024-05-04 07:56] LABS: ALBUMIN 1.6 g/dl (3.4-5.0); BLOOD UREA NITROGEN 38.8 mg/dL (7-18); GLUCOSE,RANDOM 122 mg/dL (74-106); MAGNESIUM 1.4 mg/dL (1.8-2.4)
[2024-05-04 07:58] LABS: SGPT/ALT 44 U/L (13-61)
[2024-05-04 07:59] LABS: CREATININE 0.6 mg/dL (0.55-1.3); SGOT/AST 33 U/L (15-37)
[2024-05-04 08:00] LABS: BILIRUBIN,TOTAL 0.2 mg/dL (0.2-1); TOT PROT 7.1 g/dl (6.4-8.2)
[2024-05-04 08:01] LABS: ALK PHOS 108 U/L (45-117)
[2024-05-04 08:09] LABS: ANION GAP 4 mmol/L (4-13); CO2 > 45 mmol/L (21-32)
[2024-05-04] MEDS: MAGNESIUM 2GM/50ML STERILE WATER IVPB IVPB ONE (09:14)
[2024-05-04] MEDS: FOLIC ACID 1 MG TABLET (FP) PEG SCH (09:14)
[2024-05-04] MEDS: THIAMINE 100 MG TABLET NGT SCH (09:14)
[2024-05-04] MEDS: ENOXAPARIN NA (PORCINE) 40 MG/0.4 ML DISP.SYRIN SQ SCH (09:15)
[2024-05-04] MEDS: LACTATED RINGERS SOLUTION 1,000 ML/1,000 ML INFUS.BAG IV ONE (20:08)
[2024-05-04 20:35] LABS: ARTERIAL BLD GAS O2 SATURATION 90.7 % (95-98); ARTERIAL BLOOD GAS pH 7.388 (7.350-7.450)
[2024-05-04 20:37] LABS: ALLENS TEST POSITIVE; VENT MODE A/C; VENT RATE 20
[2024-05-04] MEDS: ACETAMINOPHEN 325 MG TABLET (FP) PO PRN (21:26)
[2024-05-04] MEDS: FUROSEMIDE 40 MG/4 ML INJECTABLE VIAL IVPUSH ONE (23:19)
[2024-05-05 00:04] LABS: ARTERIAL BLD GAS O2 SATURATION 92.5 % (95-98); ARTERIAL BLOOD GAS BASE EXCESS 16.6 mmol/L (-2-2); ARTERIAL BLOOD GAS PO2 65.2 mmHg (80-100)
[2024-05-05 06:35] LABS: ARTERIAL BLD GAS O2 SATURATION 91.9 % (95-98); ARTERIAL BLOOD GAS PO2 62.2 mmHg (80-100); ARTERIAL BLOOD GAS pH 7.457 (7.350-7.450)
[2024-05-05 06:44] LABS: HEMATOCRIT 24.9 % (32.4-45.2); HEMOGLOBIN 7.7 GM/dL (10.7-15.3); MCH 24.3 pg (25.7-33.7); MCHC 30.8 g/dl (32.0-36.0); MEAN CELL VOLUME 78.6 fl (80-96); MEAN PLT VOLUME 8.3 fl (7.5-11.1); PLATELET COUNT 532 10^3/uL (134-434); RBC 3.17 M/mm3 (3.60-5.2); RDW 20.7 % (11.6-15.6); WHITE BLOOD COUNT 11.2 K/mm3 (4.0-10.0)
[2024-05-05 07:03] LABS: CHLORIDE 93 mmol/L (98-107); POTASSIUM 3.9 mmol/L (3.5-5.1); SODIUM 140 mmol/L (136-145)
[2024-05-05 07:07] LABS: ALBUMIN 1.6 g/dl (3.4-5.0); BLOOD UREA NITROGEN 35.4 mg/dL (7-18); CALCIUM 8.8 mg/dL (8.5-10.1); GLUCOSE,RANDOM 105 mg/dL (74-106); MAGNESIUM 1.7 mg/dL (1.8-2.4)
[2024-05-05 07:10] LABS: PHOSPHOROUS 2.4 mg/dL (2.5-4.9)
[2024-05-05 07:11] LABS: CREATININE 0.4 mg/dL (0.55-1.3); SGOT/AST 32 U/L (15-37); SGPT/ALT 36 U/L (13-61)
[2024-05-05 07:12] LABS: BILIRUBIN,TOTAL 0.2 mg/dL (0.2-1); TOT PROT 6.3 g/dl (6.4-8.2)
[2024-05-05 07:13] LABS: ALK PHOS 96 U/L (45-117)
[2024-05-05 07:16] LABS: ANION GAP 2 mmol/L (4-13); CO2 > 45 mmol/L (21-32)
[2024-05-05] MEDS: FUROSEMIDE 40 MG/4 ML INJECTABLE VIAL IVPUSH ONE (08:30)
[2024-05-05] MEDS: FUROSEMIDE INJECTION 100 MG in DEXTROSE 5%-WATER - 90 ML IVPB SCH (09:31)
[2024-05-05] MEDS: MAGNESIUM 1GM/D5W - 1 GM/100 ML IVPB IVPB ONE (12:00)
[2024-05-06 05:42] LABS: BASO % 0.8 % (0-2.0); EOS % 0.5 % (0-4.5); HEMATOCRIT 25.2 % (32.4-45.2); LYMPH % 10.4 % (8-40); MCH 24.8 pg (25.7-33.7); MCHC 31.6 g/dl (32.0-36.0); MEAN CELL VOLUME 78.4 fl (80-96); MEAN PLT VOLUME 7.7 fl (7.5-11.1); MONO % 11.5 % (3.8-10.2); NEUT % 76.8 % (42.8-82.8); PLATELET COUNT 504 10^3/uL (134-434); RBC 3.22 M/mm3 (3.60-5.2); RDW 20.2 % (11.6-15.6); WHITE BLOOD COUNT 12.3 K/mm3 (4.0-10.0)
[2024-05-06 05:45] LABS: ARTERIAL BLD GAS O2 SATURATION 89.4 % (95-98); ARTERIAL BLOOD GAS BASE EXCESS 16.9 mmol/L (-2-2); ARTERIAL BLOOD GAS PO2 58.5 mmHg (80-100); ARTERIAL BLOOD GAS pH 7.411 (7.350-7.450)
[2024-05-06 05:47] LABS: VENT MODE A/C; VENT RATE 24
[2024-05-06 06:01] LABS: CHLORIDE 92 mmol/L (98-107); POTASSIUM 3.6 mmol/L (3.5-5.1); SODIUM 142 mmol/L (136-145)
[2024-05-06 06:02] LABS: CALCIUM 8.3 mg/dL (8.5-10.1)
[2024-05-06 06:03] LABS: ALBUMIN 1.6 g/dl (3.4-5.0); BLOOD UREA NITROGEN 36.6 mg/dL (7-18); GLUCOSE,RANDOM 132 mg/dL (74-106); MAGNESIUM 1.5 mg/dL (1.8-2.4)
[2024-05-06 06:06] LABS: CREATININE 0.4 mg/dL (0.55-1.3); PHOSPHOROUS 2.8 mg/dL (2.5-4.9); SGOT/AST 32 U/L (15-37); SGPT/ALT 38 U/L (13-61)
[2024-05-06 06:08] LABS: BILIRUBIN,TOTAL 0.2 mg/dL (0.2-1); TOT PROT 6.3 g/dl (6.4-8.2)
[2024-05-06 06:09] LABS: ALK PHOS 104 U/L (45-117)
[2024-05-06 06:44] LABS: ANION GAP 5 mmol/L (4-13); CO2 > 45 mmol/L (21-32)
[2024-05-06] MEDS ORDERED: METOLAZONE 5 MG TABLET PO ONE (09:15)
[2024-05-06] MEDS: METOLAZONE 5 MG TABLET NR ONE (09:42)
[2024-05-06] MEDS: FENTANYL NS IVPB 500 MCG/100 ML BAG IVPB SCH (10:55)
[2024-05-07 07:41] LABS: BASO % 0.3 % (0-2.0); EOS % 0.5 % (0-4.5); HEMATOCRIT 27.2 % (32.4-45.2); HEMOGLOBIN 8.3 GM/dL (10.7-15.3); LYMPH % 12.4 % (8-40); MCH 24.2 pg (25.7-33.7); MCHC 30.6 g/dl (32.0-36.0); MEAN CELL VOLUME 79.1 fl (80-96); MEAN PLT VOLUME 8.7 fl (7.5-11.1); MONO % 7.5 % (3.8-10.2); NEUT % 79.3 % (42.8-82.8); PLATELET COUNT 470 10^3/uL (134-434); RBC 3.44 M/mm3 (3.60-5.2); RDW 20.4 % (11.6-15.6); WHITE BLOOD COUNT 11.9 K/mm3 (4.0-10.0)
[2024-05-07 08:01] LABS: CHLORIDE 87 mmol/L (98-107); POTASSIUM 3.3 mmol/L (3.5-5.1); SODIUM 140 mmol/L (136-145)
[2024-05-07 08:03] LABS: CALCIUM 8.6 mg/dL (8.5-10.1)
[2024-05-07 08:04] LABS: ALBUMIN 1.5 g/dl (3.4-5.0); BLOOD UREA NITROGEN 40.9 mg/dL (7-18); GLUCOSE,RANDOM 132 mg/dL (74-106); MAGNESIUM 1.5 mg/dL (1.8-2.4)
[2024-05-07 08:06] LABS: PHOSPHOROUS 3.9 mg/dL (2.5-4.9)
[2024-05-07 08:07] LABS: CREATININE 0.4 mg/dL (0.55-1.3); SGOT/AST 45 U/L (15-37); SGPT/ALT 50 U/L (13-61)
[2024-05-07 08:08] LABS: ANION GAP 8 mmol/L (4-13); BILIRUBIN,TOTAL 0.3 mg/dL (0.2-1); CO2 > 45 mmol/L (21-32); TOT PROT 6.4 g/dl (6.4-8.2)
[2024-05-07 08:10] LABS: ALK PHOS 92 U/L (45-117)
[2024-05-07 10:26] LABS: ARTERIAL BLD GAS O2 SATURATION 94.3 % (95-98); ARTERIAL BLOOD GAS BASE EXCESS 22.6 mmol/L (-2-2); ARTERIAL BLOOD GAS PO2 75.5 mmHg (80-100); ARTERIAL BLOOD GAS pH 7.405 (7.350-7.450)
[2024-05-07 10:36] LABS: VENT MODE AC; VENT RATE 22
[2024-05-07] MEDS: MIDODRINE HCL 5 MG TABLET GT SCH ×2 (12:59→16:04)
[2024-05-07] MEDS ORDERED: ACETAMINOPHEN 325 MG TABLET (FP) PO PRN (13:46)
[2024-05-07] MEDS: ALBUTEROL SO4 2.5/IPRATROPIUM 0.5 INH SOL 3 ML VIAL.NEB. NEB SCH (15:50)
[2024-05-07 15:53] LABS: ARTERIAL BLD GAS O2 SATURATION 93.2 % (95-98); ARTERIAL BLOOD GAS PO2 67.8 mmHg (80-100); ARTERIAL BLOOD GAS pH 7.437 (7.350-7.450)
[2024-05-07 15:54] LABS: VENT MODE AC; VENT RATE 22
[2024-05-07] MEDS: AZTREONAM 1 GM in DEXTROSE 5%-WATER - 50 ML IVPB SCH (17:25)
[2024-05-07] MEDS: KCL 20 MEQ PREMIX BAG 20 MEQ/100 ML INFUS.BAG IVPB ONE (17:25)
[2024-05-07] MEDS: VANCOMYCIN/WATER FOR INJ (PEG) 1,000 MG/200 ML BAG IVPB SCH (17:26)
[2024-05-07] MEDS ORDERED: MEROPENEM-0.9% SODIUM CHLORIDE 1 GM/50 ML BAG IVPB SCH (18:00)
[2024-05-07] MEDS: MIDAZOLAM IN 0.9 % SOD.CHLORID 100 MG/100 ML PLAST..BAG IVPB SCH (19:34)
[2024-05-07] MEDS: NOREPINEPHRINE BITARTRATE 4,000 MCG in SODIUM CHLORIDE 496 ML IV SCH (19:34)
[2024-05-07] MEDS: FENTANYL NS IVPB 500 MCG/100 ML BAG IVPB SCH (19:36)
[2024-05-07] MEDS: MUPIROCIN 2% TOPICAL OINTMENT FOR DECOLONIZATION NS SCH (20:03)
[2024-05-07] MEDS: POTASSIUM CHLORIDE ORAL LIQUID 20 MEQ/15 ML PEG ONE (20:34)
[2024-05-07] MEDS: MAGNESIUM SULF 50% (8.12 MEQ/2 ML-1 GM VIAL) IVPB ONE (20:34)
[2024-05-07] MEDS: METOLAZONE 5 MG TABLET PO ONE (20:34)
[2024-05-07] MEDS: ACETAMINOPHEN 650 MG/20.3 ML ORAL SOLUTION (CUPS) PO PRN (20:55)
[2024-05-07] MEDS: CHLORHEXIDINE GLUCONATE 4% CLEANSER FOR DECOLONIZATION TP SCH (21:29)
[2024-05-07] MEDS: levETIRAcetam 500 MG/5 ML ORAL SOLUTION (UNIT-DOSE CUPS) PEG SCH (21:29)
[2024-05-07] MEDS: FUROSEMIDE 40 MG/4 ML INJECTABLE VIAL IVPUSH ONE (21:29)
[2024-05-07] MEDS: ZINC OXIDE 20% TOPICAL OINTMENT 30 GM TUBE TP SCH (21:29)
[2024-05-07] MEDS: VALPROATE SODIUM 250 MG/5 ML UNIT DOSE CUP PEG SCH (21:29)
[2024-05-07] MEDS: ATORVASTATIN CA 40 MG TABLET (FP) PEG SCH (21:29)
[2024-05-08 07:12] LABS: HEMATOCRIT 25.3 % (32.4-45.2); HEMOGLOBIN 7.7 GM/dL (10.7-15.3); MCH 24.3 pg (25.7-33.7); MCHC 30.3 g/dl (32.0-36.0); MEAN CELL VOLUME 80.1 fl (80-96); MEAN PLT VOLUME 8.9 fl (7.5-11.1); PLATELET COUNT 406 10^3/uL (134-434); RBC 3.16 M/mm3 (3.60-5.2); RDW 21.1 % (11.6-15.6); WHITE BLOOD COUNT 10.9 K/mm3 (4.0-10.0)
[2024-05-08 07:16] LABS: ARTERIAL BLD GAS O2 SATURATION 96.4 % (95-98); ARTERIAL BLOOD GAS BASE EXCESS 21.4 mmol/L (-2-2); ARTERIAL BLOOD GAS PO2 91.6 mmHg (80-100); ARTERIAL BLOOD GAS pH 7.386 (7.350-7.450)
[2024-05-08 07:32] LABS: VENT MODE VAC; VENT RATE 24
[2024-05-08 07:36] LABS: CHLORIDE 89 mmol/L (98-107); POTASSIUM 3.8 mmol/L (3.5-5.1); SODIUM 143 mmol/L (136-145)
[2024-05-08 07:40] LABS: CALCIUM 8.1 mg/dL (8.5-10.1)
[2024-05-08 07:41] LABS: ALBUMIN 1.5 g/dl (3.4-5.0); BLOOD UREA NITROGEN 48.4 mg/dL (7-18); GLUCOSE,RANDOM 138 mg/dL (74-106); MAGNESIUM 2.2 mg/dL (1.8-2.4)
[2024-05-08 07:43] LABS: ANION GAP 9 mmol/L (4-13); CO2 > 45 mmol/L (21-32); SGOT/AST 98 U/L (15-37); SGPT/ALT 89 U/L (13-61)
[2024-05-08 07:44] LABS: CREATININE 0.6 mg/dL (0.55-1.3); PHOSPHOROUS 3.3 mg/dL (2.5-4.9)
[2024-05-08 07:45] LABS: BILIRUBIN,TOTAL 0.3 mg/dL (0.2-1)
[2024-05-08 07:46] LABS: ALK PHOS 107 U/L (45-117)
[2024-05-08] MEDS: FOLIC ACID 1 MG TABLET (FP) PEG SCH (10:29)
[2024-05-08] MEDS: ENOXAPARIN NA (PORCINE) 40 MG/0.4 ML DISP.SYRIN SQ SCH (10:29)
[2024-05-08] MEDS: THIAMINE 100 MG TABLET NGT SCH (10:30)
[2024-05-08 21:57] LABS: ARTERIAL BLOOD GAS BASE EXCESS 24.3 mmol/L (-2-2)
[2024-05-08 21:58] LABS: VENT MODE A/C; VENT RATE 24
[2024-05-08 22:21] LABS: BASO % 0.7 % (0-2.0); EOS % 0.6 % (0-4.5); HEMATOCRIT 23.2 % (32.4-45.2); HEMOGLOBIN 7.1 GM/dL (10.7-15.3); MCH 23.8 pg (25.7-33.7); MCHC 30.6 g/dl (32.0-36.0); MEAN CELL VOLUME 77.8 fl (80-96); MEAN PLT VOLUME 8.3 fl (7.5-11.1); MONO % 6.3 % (3.8-10.2); NEUT % 85.4 % (42.8-82.8); PLATELET COUNT 414 10^3/uL (134-434); RBC 2.98 M/mm3 (3.60-5.2); RDW 21.1 % (11.6-15.6); WHITE BLOOD COUNT 14.5 K/mm3 (4.0-10.0)
[2024-05-08 23:12] LABS: ANISOCYTOSIS 2+; MACROCYTOSIS 0
[2024-05-09 06:24] LABS: ARTERIAL BLD GAS O2 SATURATION 95.6 % (95-98); ARTERIAL BLOOD GAS PO2 79.5 mmHg (80-100); ARTERIAL BLOOD GAS pH 7.444 (7.350-7.450)
[2024-05-09 06:33] LABS: VENT MODE A/C; VENT RATE 24
[2024-05-09 06:40] LABS: HEMATOCRIT 26.2 % (32.4-45.2); HEMOGLOBIN 8.3 GM/dL (10.7-15.3); MCH 25.5 pg (25.7-33.7); MCHC 31.7 g/dl (32.0-36.0); MEAN CELL VOLUME 80.3 fl (80-96); MEAN PLT VOLUME 8.9 fl (7.5-11.1); PLATELET COUNT 403 10^3/uL (134-434); RBC 3.26 M/mm3 (3.60-5.2); RDW 20.4 % (11.6-15.6); WHITE BLOOD COUNT 16.1 K/mm3 (4.0-10.0)
[2024-05-09 06:55] LABS: CHLORIDE 91 mmol/L (98-107); POTASSIUM 3.5 mmol/L (3.5-5.1); SODIUM 139 mmol/L (136-145)
[2024-05-09 07:01] LABS: ALBUMIN 1.4 g/dl (3.4-5.0); BLOOD UREA NITROGEN 51.2 mg/dL (7-18); GLUCOSE,RANDOM 116 mg/dL (74-106); MAGNESIUM 2.1 mg/dL (1.8-2.4)
[2024-05-09 07:04] LABS: CREATININE 0.5 mg/dL (0.55-1.3); PHOSPHOROUS 3.4 mg/dL (2.5-4.9); SGOT/AST 67 U/L (15-37); SGPT/ALT 73 U/L (13-61)
[2024-05-09 07:05] LABS: BILIRUBIN,TOTAL 0.5 mg/dL (0.2-1); TOT PROT 5.9 g/dl (6.4-8.2)
[2024-05-09 07:07] LABS: ALK PHOS 88 U/L (45-117)
[2024-05-09 07:09] LABS: ANION GAP 2 mmol/L (4-13); CO2 > 45 mmol/L (21-32)
[2024-05-09] MEDS: MIDODRINE HCL 5 MG TABLET GT SCH (14:25)
[2024-05-10 06:47] LABS: HEMATOCRIT 28.5 % (32.4-45.2); HEMOGLOBIN 8.8 GM/dL (10.7-15.3); MCH 24.8 pg (25.7-33.7); MCHC 30.8 g/dl (32.0-36.0); MEAN CELL VOLUME 80.4 fl (80-96); MEAN PLT VOLUME 8.8 fl (7.5-11.1); PLATELET COUNT 424 10^3/uL (134-434); RBC 3.55 M/mm3 (3.60-5.2); RDW 19.8 % (11.6-15.6); WHITE BLOOD COUNT 15.3 K/mm3 (4.0-10.0)
[2024-05-10 07:15] LABS: ALBUMIN 1.4 g/dl (3.4-5.0); BLOOD UREA NITROGEN 47.5 mg/dL (7-18); CALCIUM 8.3 mg/dL (8.5-10.1)
[2024-05-10 07:17] LABS: CREATININE 0.4 mg/dL (0.55-1.3)
[2024-05-10 07:19] LABS: BILIRUBIN,TOTAL 0.4 mg/dL (0.2-1); TOT PROT 6.3 g/dl (6.4-8.2)
[2024-05-10] MEDS ORDERED: KCL 20 MEQ PREMIX BAG 20 MEQ/100 ML INFUS.BAG IVPB SCH (08:15)
[2024-05-10] MEDS: POTASSIUM CHLORIDE ORAL LIQUID 20 MEQ/15 ML GT ONE (09:19)
[2024-05-11 07:32] LABS: HEMATOCRIT 25.1 % (32.4-45.2); HEMOGLOBIN 8.2 GM/dL (10.7-15.3); MCH 25.7 pg (25.7-33.7); MCHC 32.6 g/dl (32.0-36.0); MEAN CELL VOLUME 78.9 fl (80-96); MEAN PLT VOLUME 8.5 fl (7.5-11.1); PLATELET COUNT 394 10^3/uL (134-434); RBC 3.18 M/mm3 (3.60-5.2); RDW 20.6 % (11.6-15.6); WHITE BLOOD COUNT 10.2 K/mm3 (4.0-10.0)
[2024-05-11 08:10] LABS: POTASSIUM 3.4 mmol/L (3.5-5.1)
[2024-05-11 08:12] LABS: BLOOD UREA NITROGEN 41.8 mg/dL (7-18); CALCIUM 8.4 mg/dL (8.5-10.1)
[2024-05-11 08:13] LABS: ALBUMIN 1.3 g/dl (3.4-5.0)
[2024-05-11 08:16] LABS: CREATININE 0.4 mg/dL (0.55-1.3); PHOSPHOROUS 3.2 mg/dL (2.5-4.9)
[2024-05-11 08:17] LABS: BILIRUBIN,TOTAL 0.3 mg/dL (0.2-1); TOT PROT 5.8 g/dl (6.4-8.2)
[2024-05-11] MEDS ORDERED: MORPHINE SULFATE/0.9% NACL/PF 100 MG/100 ML BAG IVPB SCH (10:30)
[2024-05-11] MEDS: POTASSIUM CHLORIDE ORAL LIQUID 20 MEQ/15 ML GT ONE (10:47)
[2024-05-11] MEDS: MORPHINE 100mg/NS INFUSION 100 MG/100 ML MG IVPB SCH (13:53)
[2024-05-11] MEDS: MORPHINE SULFATE/0.9% NACL/PF 100 MG/100 ML BAG IVPB SCH (19:12)
[2024-05-12 08:33] LABS: POTASSIUM 3.2 mmol/L (3.5-5.1)
[2024-05-12 08:34] LABS: HEMATOCRIT 23.6 % (32.4-45.2); HEMOGLOBIN 7.5 GM/dL (10.7-15.3); MCH 25.5 pg (25.7-33.7); MCHC 31.8 g/dl (32.0-36.0); MEAN PLT VOLUME 8.8 fl (7.5-11.1); PLATELET COUNT 361 10^3/uL (134-434); RBC 2.94 M/mm3 (3.60-5.2); RDW 20.7 % (11.6-15.6); WHITE BLOOD COUNT 11.6 K/mm3 (4.0-10.0)
[2024-05-12 08:40] LABS: ALBUMIN 1.2 g/dl (3.4-5.0); BLOOD UREA NITROGEN 33.8 mg/dL (7-18)
[2024-05-12 08:43] LABS: BILIRUBIN,TOTAL 0.3 mg/dL (0.2-1); CREATININE 0.4 mg/dL (0.55-1.3); TOT PROT 5.7 g/dl (6.4-8.2)
[2024-05-12 08:44] LABS: PHOSPHOROUS 3.1 mg/dL (2.5-4.9)
[2024-05-12 08:55] LABS: CALCIUM 8.2 mg/dL (8.5-10.1)
[2024-05-12] MEDS: MIDODRINE HCL 5 MG TABLET GT SCH (10:47)
[2024-05-12] MEDS: POTASSIUM CHLORIDE ORAL LIQUID 20 MEQ/15 ML GT SCH (11:35)
[2024-05-12] MEDS ORDERED: RAPID SEQUENCE INTUBATION KIT NR ONE (12:14)
[2024-05-12] MEDS: MORPHINE 100mg/NS INFUSION 100 MG/100 ML MG IVPB SCH ×2 (17:25→19:54)
[2024-05-12] MEDS: MORPHINE SULFATE/0.9% NACL/PF 100 MG/100 ML BAG IVPB SCH (20:26)
[2024-05-13] MEDS: MORPHINE 100mg/NS INFUSION 100 MG/100 ML MG IVPB SCH ×2 (02:46→08:58)
[2024-05-13 06:29] LABS: ARTERIAL BLOOD GAS BASE EXCESS 8.2 mmol/L (-2-2); ARTERIAL BLOOD GAS PO2 75.6 mmHg (80-100); ARTERIAL BLOOD GAS pH 7.407 (7.350-7.450)
[2024-05-13 08:10] LABS: HEMOGLOBIN 7.8 GM/dL (10.7-15.3); MCH 25.3 pg (25.7-33.7); MCHC 31.2 g/dl (32.0-36.0); MEAN CELL VOLUME 80.9 fl (80-96); MEAN PLT VOLUME 8.5 fl (7.5-11.1); PLATELET COUNT 440 10^3/uL (134-434); RBC 3.08 M/mm3 (3.60-5.2); RDW 21.3 % (11.6-15.6); WHITE BLOOD COUNT 13.4 K/mm3 (4.0-10.0)
[2024-05-13 10:09] LABS: POTASSIUM 3.8 mmol/L (3.5-5.1)
[2024-05-13 10:11] LABS: BLOOD UREA NITROGEN 31.9 mg/dL (7-18); CALCIUM 8.1 mg/dL (8.5-10.1)
[2024-05-13 10:12] LABS: MAGNESIUM 1.8 mg/dL (1.8-2.4)
[2024-05-13 10:15] LABS: CREATININE 0.4 mg/dL (0.55-1.3); PHOSPHOROUS 2.8 mg/dL (2.5-4.9)
[2024-05-14 06:18] LABS: ARTERIAL BLD GAS O2 SATURATION 94.5 % (95-98); ARTERIAL BLOOD GAS PO2 73.6 mmHg (80-100); ARTERIAL BLOOD GAS pH 7.396 (7.350-7.450)
[2024-05-14 06:24] LABS: VENT RATE 24
[2024-05-14 08:16] LABS: HEMATOCRIT 25.1 % (32.4-45.2); HEMOGLOBIN 7.9 GM/dL (10.7-15.3); MCH 25.3 pg (25.7-33.7); MCHC 31.2 g/dl (32.0-36.0); MEAN PLT VOLUME 8.4 fl (7.5-11.1); PLATELET COUNT 420 10^3/uL (134-434); RDW 20.6 % (11.6-15.6); WHITE BLOOD COUNT 13.9 K/mm3 (4.0-10.0)
[2024-05-14 08:38] LABS: POTASSIUM 3.4 mmol/L (3.5-5.1)
[2024-05-14 08:43] LABS: CALCIUM 8.1 mg/dL (8.5-10.1)
[2024-05-14 08:44] LABS: MAGNESIUM 1.7 mg/dL (1.8-2.4)
[2024-05-14 08:47] LABS: CREATININE 0.5 mg/dL (0.55-1.3); PHOSPHOROUS 3.5 mg/dL (2.5-4.9)
[2024-05-14] MEDS: POTASSIUM CHLORIDE ORAL LIQUID 20 MEQ/15 ML GT ONE (09:27)
[2024-05-14] MEDS: SULFAMETHOXAZOLE/TRIMETHOPRIM 800MG/160MG D.S. TABLET PO SCH (13:09)
[2024-05-15 06:52] LABS: HEMATOCRIT 24.7 % (32.4-45.2); HEMOGLOBIN 7.8 GM/dL (10.7-15.3); MCH 25.2 pg (25.7-33.7); MCHC 31.5 g/dl (32.0-36.0); MEAN CELL VOLUME 79.9 fl (80-96); MEAN PLT VOLUME 8.1 fl (7.5-11.1); PLATELET COUNT 433 10^3/uL (134-434); RDW 21.4 % (11.6-15.6); WHITE BLOOD COUNT 13.2 K/mm3 (4.0-10.0)
[2024-05-15 07:07] LABS: POTASSIUM 3.3 mmol/L (3.5-5.1)
[2024-05-15 07:13] LABS: ALBUMIN 1.2 g/dl (3.4-5.0); CALCIUM 8.4 mg/dL (8.5-10.1)
[2024-05-15 07:14] LABS: BLOOD UREA NITROGEN 34.4 mg/dL (7-18); MAGNESIUM 1.8 mg/dL (1.8-2.4)
[2024-05-15 07:17] LABS: CREATININE 0.5 mg/dL (0.55-1.3); PHOSPHOROUS 3.5 mg/dL (2.5-4.9)
[2024-05-15 07:18] LABS: BILIRUBIN,TOTAL 0.3 mg/dL (0.2-1); TOT PROT 6.1 g/dl (6.4-8.2)
[2024-05-15] MEDS: POTASSIUM CHLORIDE ORAL LIQUID 20 MEQ/15 ML PO ONE (09:57)
[2024-05-16] MEDS ORDERED: NOREPINEPHRINE BITARTRATE 4 MG/4 ML ML IV ONE ×2 (02:20→12:07)
[2024-05-16 06:14] LABS: HEMATOCRIT 24.1 % (32.4-45.2); HEMOGLOBIN 7.6 GM/dL (10.7-15.3); MCH 25.1 pg (25.7-33.7); MCHC 31.6 g/dl (32.0-36.0); MEAN CELL VOLUME 79.6 fl (80-96); MEAN PLT VOLUME 8.1 fl (7.5-11.1); PLATELET COUNT 401 10^3/uL (134-434); RBC 3.03 M/mm3 (3.60-5.2); RDW 21.4 % (11.6-15.6); WHITE BLOOD COUNT 13.2 K/mm3 (4.0-10.0)
[2024-05-16 06:26] LABS: POTASSIUM 3.7 mmol/L (3.5-5.1)
[2024-05-16 06:29] LABS: CALCIUM 8.1 mg/dL (8.5-10.1)
[2024-05-16 06:30] LABS: ALBUMIN 1.2 g/dl (3.4-5.0); BLOOD UREA NITROGEN 35.1 mg/dL (7-18); MAGNESIUM 1.9 mg/dL (1.8-2.4)
[2024-05-16 06:33] LABS: BILIRUBIN,TOTAL 0.2 mg/dL (0.2-1); CREATININE 0.7 mg/dL (0.55-1.3); PHOSPHOROUS 3.8 mg/dL (2.5-4.9)
[2024-05-16 06:35] LABS: TOT PROT 5.9 g/dl (6.4-8.2)
[2024-05-16] MEDS: AMINO ACIDS/PROTEIN HYDROLYS 30 ML LIQUID.PKT PO SCH (09:33)
[2024-05-16] MEDS: MIDAZOLAM IN 0.9 % SOD.CHLORID 100 MG/100 ML PLAST..BAG IVPB SCH (10:13)
[2024-05-17 06:36] LABS: HEMATOCRIT 24.7 % (32.4-45.2); HEMOGLOBIN 7.7 GM/dL (10.7-15.3); MCH 24.9 pg (25.7-33.7); MCHC 31.3 g/dl (32.0-36.0); MEAN CELL VOLUME 79.5 fl (80-96); MEAN PLT VOLUME 7.8 fl (7.5-11.1); PLATELET COUNT 380 10^3/uL (134-434); RDW 21.7 % (11.6-15.6); WHITE BLOOD COUNT 11.9 K/mm3 (4.0-10.0)
[2024-05-17 07:00] LABS: POTASSIUM 3.9 mmol/L (3.5-5.1)
[2024-05-17 07:02] LABS: ALBUMIN 1.2 g/dl (3.4-5.0); CALCIUM 8.2 mg/dL (8.5-10.1)
[2024-05-17 07:04] LABS: MAGNESIUM 1.9 mg/dL (1.8-2.4)
[2024-05-17 07:06] LABS: CREATININE 0.7 mg/dL (0.55-1.3); PHOSPHOROUS 4.3 mg/dL (2.5-4.9)
[2024-05-17 07:07] LABS: BILIRUBIN,TOTAL 0.3 mg/dL (0.2-1); TOT PROT 6.1 g/dl (6.4-8.2)
[2024-05-17] MEDS ORDERED: LORazepam 2 MG/ML SDV VIAL IVPUSH PRN (12:50)
[2024-05-17] MEDS ORDERED: MIDODRINE HCL 5 MG TABLET PO SCH (14:00)
[2024-05-17] MEDS: MORPHINE 100mg/NS INFUSION 100 MG/100 ML MG IVPB SCH (14:12)
[2024-05-17] MEDS: AMINO ACIDS/PROTEIN HYDROLYS 30 ML LIQUID.PKT GT SCH (14:29)
[2024-05-17] MEDS: MIDODRINE HCL 5 MG TABLET PO SCH ×2 (14:29→15:12)
[2024-05-17] MEDS: ZINC OXIDE 20% TOPICAL OINTMENT 30 GM TUBE TP ONE (14:43)
[2024-05-17] MEDS: NOREPINEPHRINE BITARTRATE 4,000 MCG in DEXTROSE 5%-WATER - 496 ML IV SCH (15:04)
[2024-05-17] MEDS ORDERED: MIDAZOLAM IN 0.9 % SOD.CHLORID 100 MG/100 ML PLAST..BAG IVPB SCH (15:15)
[2024-05-17] MEDS: MIDAZOLAM 100 MG/100 ML MG IVPB SCH (15:38)
[2024-05-17] MEDS: MIDAZOLAM IN 0.9 % SOD.CHLORID 100 MG/100 ML PLAST..BAG IVPB SCH ×2 (15:39→16:12)
[2024-05-17] MEDS: CHLORHEXIDINE GLUCONATE 4% CLEANSER FOR DECOLONIZATION TP SCH (21:04)
[2024-05-17] MEDS: ATORVASTATIN CA 40 MG TABLET (FP) PEG SCH (21:04)
[2024-05-18] MEDS: THIAMINE 100 MG TABLET NGT SCH (09:12)
[2024-05-18] MEDS: FOLIC ACID 1 MG TABLET (FP) PEG SCH (09:14)
[2024-05-18] MEDS: MORPHINE 100mg/NS INFUSION 100 MG/100 ML MG IVPB SCH (14:23)
[2024-05-18] MEDS: LORazepam 2 MG/ML SDV VIAL IVPUSH SCH (14:24)
[2024-05-19] MEDS: MORPHINE SULFATE/0.9% NACL/PF 100 MG/100 ML BAG IVPB SCH (00:07)
[2024-05-19 08:33] VITALS: RESP 24
[2024-05-19 10:16] VITALS: BP 115/57; PULSE 75; TEMP 98.3
[2024-05-19] MEDS: LORazepam 2 MG/ML SDV VIAL IVPUSH PRN (11:43)
== END 2024-05-19 19:29 | disposition expired | DRG 870 ==
LOC: JER 12:35 → JERBED 17:45 → J2W 04-21 21:32 → J5S 05-01 22:52 → JICU 05-03 14:41
PROVIDERS: ADMIT Internal Medicine; ATTEND Internal Medicine Pulmonary Disease
PROC: 5A1955Z Respiratory Ventilation, Greater than 96 Consecutive Hours (ICD-10-PCS; principal; 2024-04-20)
PROC: 05HD33Z Insertion of Infusion Device into Right Cephalic Vein, Percutaneous Approach (ICD-10-PCS; 2024-05-04)
PROC: B54MZZA Ultrasonography of Right Upper Extremity Veins, Guidance (ICD-10-PCS; 2024-05-04)
PROC: 05HC33Z Insertion of Infusion Device into Left Basilic Vein, Percutaneous Approach (ICD-10-PCS; 2024-05-08)
PROC: B54NZZA Ultrasonography of Left Upper Extremity Veins, Guidance (ICD-10-PCS; 2024-05-08)
PROC: 30233N1 Transfusion of Nonautologous Red Blood Cells into Peripheral Vein, Percutaneous Approach (ICD-10-PCS; 2024-05-09)
PROC: 0B21XFZ Change Tracheostomy Device in Trachea, External Approach (ICD-10-PCS; 2024-05-12)
DX: A41.9 Sepsis, unspecified organism (principal); G93.41 Metabolic encephalopathy; J15.1 Pneumonia due to Pseudomonas; J96.21 Acute and chronic respiratory failure with hypoxia; J96.22 Acute and chronic respiratory failure with hypercapnia; I69.354 Hemiplegia and hemiparesis following cerebral infarction affecting left non-dominant side; J44.1 Chronic obstructive pulmonary disease with (acute) exacerbation; J44.0 Chronic obstructive pulmonary disease with (acute) lower respiratory infection; E46 Unspecified protein-calorie malnutrition; E87.3 Alkalosis; J90 Pleural effusion, not elsewhere classified; E78.5 Hyperlipidemia, unspecified; N32.81 Overactive bladder; G89.4 Chronic pain syndrome; I25.2 Old myocardial infarction; I25.10 Atherosclerotic heart disease of native coronary artery without angina pectoris; E87.6 Hypokalemia; K62.89 Other specified diseases of anus and rectum; F20.9 Schizophrenia, unspecified; F03.90 Unspecified dementia, unspecified severity, without behavioral disturbance, psychotic disturbance, mood disturbance, and anxiety; K59.00 Constipation, unspecified; G40.909 Epilepsy, unspecified, not intractable, without status epilepticus; Z93.0 Tracheostomy status; Z93.1 Gastrostomy status; R31.29 Other microscopic hematuria; F32.A Depression, unspecified; D63.8 Anemia in other chronic diseases classified elsewhere; L27.0 Generalized skin eruption due to drugs and medicaments taken internally; T36.8X5A Adverse effect of other systemic antibiotics, initial encounter; Z68.28 Body mass index [BMI] 28.0-28.9, adult
CPT/HCPCS: 36415; 36430; 36600; 71045-TC-FY; 74176-TC; 80048; 80053; 81003; 82140; 82272; 82803; 82962; 83605; 83735; 83930; 83935; 84100; 84300; 84484; 85025; 85027; 85610; 86803; 86850; 86900; 86901; 86922; 87040; 87070; 87077; 87086; 87186; 87205; 87389; 87635; 93005; 93010; 93970-TC; 94002; 94640; 99285-25; G0480; J0131; P9038; P9058